=== PATIENT | male | born 1995 | race Caucasian/White ===

== ENCOUNTER 2017-08-10 16:16 | Emergency (ER) | payer OTHER ==
[2017-08-10] MEDS ORDERED: PROCHLORPERAZINE 10 MG/2 ML VIAL. IV (19:00)
[2017-08-10] MEDS ORDERED: fentaNYL PF VIAL 100 MCG/2 ML VIAL IV ×2 (19:00)
[2017-08-10] MEDS ORDERED: LIDOCAINE 1% PF 2 ML VIAL. ID (19:00)
[2017-08-10] MEDS ORDERED: ONDANSETRON PF 4 MG/2 ML VIAL. IV (19:00)
[2017-08-10] MEDS ORDERED: MORPHINE SULFATE 2 MG/ML DISP.SYRIN. IV (19:00)
[2017-08-10] MEDS ORDERED: HYDROmorphone 2 MG/ML VIAL IV (19:00)
[2017-08-10] MEDS ORDERED: IV RINGERS,LACTATED 1000ML 1,000 ML IV (19:00)
[2017-08-10] MEDS ORDERED: LIDOCAINE 1% PF 5 ML VIAL. (19:04)
[2017-08-10] MEDS ORDERED: PROPOFOL 20 ML IV (19:04)
[2017-08-10] MEDS ORDERED: fentaNYL PF VIAL 100 MCG/2 ML VIAL (19:04)
[2017-08-10] MEDS ORDERED: DESFLURANE 31 TO 60 MINUTES IH (19:38)
[2017-08-10] MEDS ORDERED: DEXAMETHASONE SOD PHOS 20 MG/5 ML VIAL. (19:38)
[2017-08-10] MEDS ORDERED: ONDANSETRON PF 4 MG/2 ML VIAL. (19:39)
[2017-08-10] MEDS: LIDOCAINE 2% JELLY 6ML IN APPLICATOR. (20:00)
[2017-08-10] MEDS ORDERED: CIPROFLOXACIN 400MG PREMIX 200 ML IV (20:00)
== END 2017-08-10 20:50 ==
LOC: ER 20:50 → SURHOP 18:45 → ER 20:50
DX: T19.0XXA Foreign body in urethra, initial encounter (principal); K21.9 Gastro-esophageal reflux disease without esophagitis; Z88.0 Allergy status to penicillin; Z88.1 Allergy status to other antibiotic agents; X58.XXXA Exposure to other specified factors, initial encounter; Y93.89 Activity, other specified; Y92.89 Other specified places as the place of occurrence of the external cause; Y99.8 Other external cause status
CPT/HCPCS: 52315; 99285; J1100; J2405; J2704; J3010; J7030

== ENCOUNTER 2017-10-10 10:17 | Emergency (ER) | payer OTHER ==
[2017-10-10 11:49] LABS: BILIRUBIN,URINE NEGATIVE (NEG); CLARITY,URINE CLEAR; COLOR,URINE YELLOW; GLUCOSE,URINE NEGATIVE (NEG); NITRITE,URINE NEGATIVE (NEG); PROTEIN,URINE 30 mg/dL (NEG-TRACE); UROBILINOGEN,URINE 0.2 mg/dL (0.2 mg/dL)
[2017-10-10 11:50] LABS: BACTERIA,URINE FEW /HPF (0-FEW)
[2017-10-10 11:59] LABS: ADD MAN DIFF? NO
[2017-10-10 12:10] LABS: ANION GAP 8 (6-14); BLOOD UREA NITROGEN 16 mg/dL (8-26); CALCIUM 9.4 mg/dL (8.5-10.1); CARBON DIOXIDE 30 mmol/L (21-32); CHLORIDE 107 mmol/L (98-107); CREATININE 0.8 mg/dL (0.7-1.3); GFR 118.8; GLUCOSE 104 mg/dL (70-99); POTASSIUM 3.9 mmol/L (3.5-5.1); SODIUM 145 mmol/L (136-145)
[2017-10-10 12:12] LABS: BASO % 0 % (0-3); EOS # 0.1 x10^3/uL (0.0-0.7); EOS % 2 % (0-3); HEMATOCRIT 43.8 % (39.0-53.0); HEMOGLOBIN 15.3 g/dL (13.0-17.5); LYMPH # 1.8 x10^3/uL (1.0-4.8); LYMPH % 27 % (24-48); MEAN CORPUSCULAR HEMOGLOBIN 31 pg (25-35); MEAN CORPUSCULAR HGB CONC 35 g/dL (31-37); MEAN CORPUSCULAR VOLUME 89 fL (79-100); MONO # 0.5 x10^3/uL (0.0-1.1); MONO % 7 % (0-9); NEUT # 4.4 x10^3uL (1.8-7.7); NEUT % 64 % (31-73); PLATELET COUNT 271 x10^3/uL (140-400); RED BLOOD COUNT 4.92 x10^6/uL (4.30-5.70); RED CELL DISTRIBUTION WIDTH 12.3 % (11.5-14.5); WHITE BLOOD COUNT 6.9 x10^3/uL (4.0-11.0)
[2017-10-10] MEDS ORDERED: IV RINGERS,LACTATED 1000ML 1,000 ML IV (13:42)
[2017-10-10] MEDS ORDERED: fentaNYL PF VIAL 100 MCG/2 ML VIAL IV ×2 (13:45)
[2017-10-10] MEDS ORDERED: HYDROmorphone 2 MG/ML VIAL IV (13:45)
[2017-10-10] MEDS ORDERED: MORPHINE SULFATE 4 MG/ML DISP.SYRIN. IV (13:45)
[2017-10-10] MEDS ORDERED: ONDANSETRON PF 4 MG/2 ML VIAL. IV ×2 (13:45)
[2017-10-10] MEDS ORDERED: PROCHLORPERAZINE 10 MG/2 ML VIAL. IV (13:45)
[2017-10-10] MEDS ORDERED: LIDOCAINE 1% PF 2 ML VIAL. ID (13:45)
[2017-10-10] MEDS ORDERED: PROPOFOL 20 ML IV (13:58)
[2017-10-10] MEDS ORDERED: fentaNYL PF VIAL 100 MCG/2 ML VIAL (13:59)
[2017-10-10] MEDS: CIPROFLOXACIN 200MG PREMIX 100 ML IV (14:10)
[2017-10-10] MEDS ORDERED: ONDANSETRON PF 4 MG/2 ML VIAL. (14:16)
[2017-10-10] MEDS ORDERED: SEVOFLURANE 16 TO 30 MINUTES. IH (14:16)
[2017-10-10] MEDS ORDERED: DEXAMETHASONE SOD PHOS 20 MG/5 ML VIAL. (14:16)
== END 2017-10-10 15:30 | disposition other institution (70) ==
LOC: ER 15:30 → SURHOP 13:47 → ER 15:30
DX: T19.0XXA Foreign body in urethra, initial encounter (principal); T19.4XXA Foreign body in penis, initial encounter; K21.9 Gastro-esophageal reflux disease without esophagitis; J45.909 Unspecified asthma, uncomplicated; Z88.0 Allergy status to penicillin; Z88.1 Allergy status to other antibiotic agents; X58.XXXA Exposure to other specified factors, initial encounter; Y93.89 Activity, other specified; Y99.8 Other external cause status; Y92.89 Other specified places as the place of occurrence of the external cause
CPT/HCPCS: 36415; 72170; 80048; 81001; 85025; 87086; 88300; 96365; 99285-25; J0744; J1100; J2405; J2704; J3010

== ENCOUNTER 2018-02-28 18:05 | Inpatient (IN) | payer OTHER ==
[~2018-02-28] VITALS: Ht 182.9 cm; Wt 133.8 kg
[~2018-02-28 18:05] MED LIST: ACET325T9 PO; CALC200T3 PO; GUAI600T47 PO; HYDR25CA PO; IBUP-1027 PO; OLAN20TA3 PO; SERT25TA PO; SODI104S NS; SULF1TAB24 PO; VENL75CA PO; [UNRECOGNIZED DRUG - CODE] TP
--- NOTE | 2018-02-28 22:19 | PHYS DOC ---
Past Medical History Past Medical History: Anxiety, Depression, Schizophrenia Past Surgical History: Other Additional Past Surgical Histo: PENILE SURGERY Alcohol Use: None Drug Use: None Adult General Chief Complaint Chief Complaint: FOREIGN BODY HPI HPI Patient is a 22 year old male, who is in police custody, who presents to the emergency department with complaints of having the handle of a plastic spoon stuck in his penis since approximately 5:45 this morning. Patient states he intentionally stuck the item into his penis, he reports a history of this behavior. Pt states that he is able to urinate without difficulty. He reports the development of pus draining from the tip of his penis over the last few hours in addition to hematuria and dysuria. Pt denies any increased urinary frequency, abdominal pain, nausea, vomiting, fever, or back pain. He denies trying to harm himself, states he enjoys sticking things into his penis. Currently he rates his pain as a 5 out of 10 on the pain scale. He reports significant psychiatric history but is unsure of his diagnoses. States that he takes lithium, Zyprexa, Adderall, and Depakote. Review of Systems Review of Systems Constitutional: Denies fever or chills [] GI: Denies abdominal pain, nausea, vomiting, or diarrhea [] : Reports dysuria and hematuria with pus from his urethral meatus since intentionally inserting the broken off handle of a plastic spoon into his urethra. Patient reports that the plastic spoon stuck inside of his urethra.[] Integument: Denies rash or skin lesions [] All other systems were reviewed and found to be within normal limits, except as documented in this note. Allergies Allergies Allergies Coded Allergies Type Severity Reaction Last Updated Verified Penicillins Allergy Intermediate HIVES 10/10/17 Yes amoxicillin Allergy Intermediate HIVES 10/10/17 Yes I S O L A T I O N *CONTACT* Allergy Unknown 10/10/17 Yes Physical Exam Physical Exam Constitutional: Well developed, well nourished, no acute distress, non-toxic appearance. [] HENT: Normocephalic, atraumatic, nose normal. [] Eyes: PERRLA, conjunctiva normal, no discharge. [] Lungs & Thorax: Respirations are even and unlabored, lungs CTA Abdomen: Bowel sounds normal, soft, no tenderness, no masses, no pulsatile masses. [] : Currently discharge at the urethral meatus, there is a palpable hard item located at the base of patient's penis, no testicular abnormalities Skin: Warm, dry, no erythema, no rash. [] Neurologic: Alert and oriented X 3, normal motor function, normal sensory function, no focal deficits noted. [] Psychologic: Affect normal, judgement normal, mood normal. [] Current Patient Data Vital Signs Vital Signs Date Time Temp Pulse Resp B/P (MAP) Pulse Ox O2 Delivery O2 Flow Rate FiO2 02/28/18 20:00 86 16 126/75 (92) 98 Room Air 02/28/18 19:13 98.6 98.6 EKG EKG [] Radiology/Procedures Radiology/Procedures [] Course & Med Decision Making Course & Med Decision Making Pertinent Labs and Imaging studies reviewed. (See chart for details) Patient Is a 22-year-old male who presents to the emergency room today with complaints of the handle of a plastic spoon being stuck inside of his urethra. VSS, patient is in police custody, a hard, stick-like foreign object is palpable at the base of patient's penis consistent with his reports of a handle from a plastic spoon being stuck in urethra. Patient waited approximately 350 ml of yellow urine into the urinal without any difficulty. The decision to admit this patient to the hospitalist with urology consult was made. Dr. Mohr agrees to admit this patient, will consult Dr. mcfadden. Orders written to admit this patient to the medical surgical floor with urology consult and also a hospice social worker consult for psychiatric evaluation was done. Dragon Disclaimer Dragon Disclaimer This electronic medical record was generated, in whole or in part, using a voice recognition dictation system. Departure Departure Impression: Primary Impression: Foreign body in urethra, initial encounter Disposition: ADMITTED INPATIENT Admitting Physician: Skylar Mohr Condition: STABLE Referrals: UNKNOWN PCP NAME (PCP) YANIV PRADO APRN Feb 28, 2018 22:19
[2018-02-28] MEDS ORDERED: DIVA250T PO (22:46)
[2018-02-28 23:00] VITALS: BP 124/80
[2018-02-28] MEDS ORDERED: HALOPERIDOL 5 MG TABLET. PO PRN (23:00)
[2018-02-28] MEDS ORDERED: MORPHINE SULFATE 2 MG/ML VIAL. IV PRN (23:00)
[2018-02-28] MEDS ORDERED: HALOPERIDOL LACTATE 5 MG/ML VIAL. IVP PRN (23:00)
[2018-02-28] MEDS ORDERED: HALOPERIDOL LACTATE 5 MG/ML VIAL. IM PRN (23:00)
[2018-02-28] MEDS: IV NORMAL SALINE 1000ML BAG 1,000 ML IV SCH (23:00)
[2018-03-01] VITALS (9 sets, daily range): BP systolic 103–145; BP diastolic 54–84
--- NOTE | 2018-03-01 08:49 | PDOC2 ---
CORAAMAN Audrey WAGE ANALYST 03/01/18 0849: UROLOGY CONSULT Date of Consult Date of Consult DATE: 03/01/18 TIME: 08:41 Reason for Consult Reason for Consult: Foreign body in urethra Identification/Chief Complaint Chief Complaint Foreign body in urethra Source Source: Chart review, Patient History of Present Illness Reason for Visit: This 22 year old Autistic male is known to us, having presented before numerous times for foreign body insertion in urethra. This time he disassembled a plastic spoon until it was a long string of plastic and inserted this into his urethra at 0545 yesterday. Since then he has had dysuria and pus coming out of his urethra. He is not sure if he is having fevers. When asked why he responded "I was told to do this." When asked who told him to do this he responded "I can't say." He also responded that he is in a secluded cell 23 hours a day and this is part of why he did this. He has not seen social work yet. Past Medical History Cardiovascular: No pertinent hx Pulmonary: No pertinent hx Psych: Bipolar, Depression, Other Past Surgical History Past Surgical History: Cystoscopy, Other (Foreign body removal from urethra multiple times) Family History Family History: No Significant Social History Social History: Other Current Problem List Problems: (1) Foreign body in penis (2) Foreign body in urethra, initial encounter Current Medications Current Medications Current Medications Haloperidol (Haldol) 5 mg PRN Q6HRS PRN PO AGITATION IF TAKING PO; Start at 23:00 Haloperidol Lactate (Haldol Inj) 5 mg PRN Q6HRS PRN IM AGITATION; Start at 23:00 Haloperidol Lactate (Haldol Inj) 5 mg PRN Q6HRS PRN IVP ANXIETY / AGITATION; Start 02/28/18 at 23:00 Lorazepam (Ativan) 2 mg PRN Q4HRS PRN IV ANXIETY / AGITATION; Start 02/28/18 at 23:00 Morphine Sulfate (Morphine Sulfate) 2 mg PRN Q2HR PRN IV SEVERE PAIN; Start at 23:00 Sodium Chloride 1,000 ml @ 75 mls/hr [id number] IV Last administered on at 23:00; Start 02/28/18 at 23:00 Allergies Allergies: Coded Allergies: Penicillins (Verified Allergy, Intermediate, HIVES, 10/10/17) amoxicillin (Verified Allergy, Intermediate, HIVES, 10/10/17) I S O L A T I O N *CONTACT* (Verified Allergy, Unknown, 10/10/17) mrsa ROS Review Of Systems: CONSTITUTIONAL: No fever or chills EYES: No recent changes SKIN: No rash or itching CARDIOVASCULAR: No chest pain, syncope, palpitations, or edema RESPIRATORY: No SOB or cough GASTROINTESTINAL: No nausea, vomiting or abdominal pain NEUROLOGICAL: No headaches or weakness ENDOCRINE: No cold or heat intolerance GENITOURINARY: + dysuria, foreign body in urethra MUSCULOSKELETAL: No back pain or joint pain LYMPHATICS: No enlarged lymph nodes PSYCHIATRIC: No anxiety or depression Physical Exam Physical Exam: General: Pleasant, no acute distress, well groomed Eyes: conjunctiva anicteric, eyes full range of motion ENT: moist oral mucosa, normal dentition Neck: Trachea midline, no masses Respiratory: unlabored breathing, not using accessory muscles. Pelvic: Phallus circumcised, small amount of pus present on meatus, but foreign body is not visible on exam. Foreign body palpable about 1/2 down shaft of penis. Tender on exam Psych: Alert and oriented x 3. Suspicious affect. Vitals VITALS Vital Signs Date Time Temp Pulse Resp B/P (MAP) Pulse Ox O2 Delivery O2 Flow Rate FiO2 03/01/18 07:00 97.9 61 18 103/54 (70) 96 Room Air 97.9 Assessment/Plan Assessment/Plan Foreign body in penis-We will take patient to OR for foreign body removal and cysto. Consents have been entered. Cipro at 1200 today for pre-opp cysto/foreign body removal with Dr. Galindo of [facility] [place] Pt to remain NPO until after procedure. [facility], in light of repeated presentation for urethral foreign body/psych issues. MANOLO GALINDO MD 03/01/18 1426: UROLOGY CONSULT Assessment/Plan Assessment/Plan Agree with assessment and plan. Patient seen and examined. Proceed with cystoscopy, foreign body removal. All questions answered, consent signed. AMAN SHEPHERD APRN Mar 01, 2018 08:49 MANOLO GALINDO MD Mar 01, 2018 14:26
[2018-03-01 09:17] LABS: CALCIUM 8.7 mg/dL (8.5-10.1); CREATININE 0.8 mg/dL (0.7-1.3); GFR 118.8; POTASSIUM 3.8 mmol/L (3.5-5.1)
[2018-03-01 09:20] LABS: BASO % 0 % (0-3); EOS # 0.1 x10^3/uL (0.0-0.7); EOS % 2 % (0-3); HEMATOCRIT 41.4 % (39.0-53.0); HEMOGLOBIN 14.5 g/dL (13.0-17.5); LYMPH # 2.3 x10^3/uL (1.0-4.8); LYMPH % 30 % (24-48); MEAN CORPUSCULAR HEMOGLOBIN 32 pg (25-35); MEAN CORPUSCULAR HGB CONC 35 g/dL (31-37); MEAN CORPUSCULAR VOLUME 91 fL (79-100); MONO # 0.8 x10^3/uL (0.0-1.1); MONO % 11 % (0-9); NEUT # 4.3 x10^3uL (1.8-7.7); NEUT % 57 % (31-73); PLATELET COUNT 156 x10^3/uL (140-400); RED BLOOD COUNT 4.56 x10^6/uL (4.30-5.70); RED CELL DISTRIBUTION WIDTH 13.1 % (11.5-14.5); WHITE BLOOD COUNT 7.5 x10^3/uL (4.0-11.0)
[2018-03-01 09:53] LABS: PROTHROMBIN TIME PATIENT 13.3 SEC (11.7-14.0)
[2018-03-01] MEDS ORDERED: IV RINGERS,LACTATED 1000ML 1,000 ML IV SCH (11:24)
--- NOTE | 2018-03-01 11:26 | PDOC1 ---
History and Physical Date of Admission Date of Admission DATE: 03/01/18 TIME: 11:20 Identification/Chief Complaint Chief Complaint Inserted a plastic spoon in his penile shaft Source Source: Caregiver, Chart review, Patient History of Present Illness History of Present Illness 22-year-old male, incarcerated, has had suicide attempts in the past including slitting his left wrist, known history of psych disorder, possibly schizophrenia. He said he heard voices telling him to insert a plastic spoon in his penis. So he broke the spoon part of it and inserted the handle all the way inside his penis and could not get it out. He can still urinate. He has significant discomfort in that area. Patient admitted for it and is planned for retrieval by urology later this p.m. Otherwise no basic labs ordered. He is smiling. He claims in residential they cannot give him his lithium. We shall also ask our life crisis or mental health counselor to see this patient. He claims he has attempted putting other objects in the past in his penis because voices instruct him to do this. It includes rubber etc. needing some retrieval also by urology? Has no kids, it seems that his family is aware of his psych issues and past suicide attempts Past Medical History Cardiovascular: No pertinent hx Pulmonary: No pertinent hx Psych: Bipolar, Depression, Other Past Surgical History Past Surgical History: Cystoscopy, Other (Foreign body removal from urethra multiple times) Family History Family History: No Significant Family History: Other Social History Smoke: No ALCOHOL: none Drugs: None Current Problem List Problem List Problems Medical Problems: (1) Foreign body in urethra, initial encounter Status: Acute Current Medications Current Medications Current Medications Morphine Sulfate (Morphine Sulfate) 2 mg PRN Q2HR PRN IV SEVERE PAIN; Start at 23:00 Lorazepam (Ativan) 2 mg PRN Q4HRS PRN IV ANXIETY / AGITATION; Start 02/28/18 at 23:00 Haloperidol (Haldol) 5 mg PRN Q6HRS PRN PO AGITATION IF TAKING PO; Start at 23:00 Haloperidol Lactate (Haldol Inj) 5 mg PRN Q6HRS PRN IM AGITATION; Start at 23:00 Haloperidol Lactate (Haldol Inj) 5 mg PRN Q6HRS PRN IVP ANXIETY / AGITATION; Start 02/28/18 at 23:00 Sodium Chloride 1,000 ml @ 75 mls/hr [id number] IV Last administered on at 23:00; Start 02/28/18 at 23:00 Ciprofloxacin/ Dextrose 200 ml @ 200 mls/hr 1X ONCE IV ; Start 03/01/18 at 12: 00; Stop 03/01/18 at 12:59 Active Scripts Active Reported Depakote Er (Divalproex Sodium) 250 Mg Tab.er.24h 250 Mg PO DAILY Bactrim Ds Tablet (Sulfamethoxazole/Trimethoprim) 1 Each Tablet 1 Each PO BID Zoloft (Sertraline Hcl) 25 Mg Tablet 1 Tab PO HS Tylenol (Acetaminophen) 325 Mg Tablet 2 Tab PO Q6HRS PRN Ibuprofen 400 Mg Tablet 400 Mg PO PRN Q6HRS PRN Effexor Xr (Venlafaxine Hcl) 75 Mg Cap.er.24h 225 Mg PO DAILY Zyprexa (Olanzapine) 20 Mg Tablet 20 Mg PO HS Vistaril (Hydroxyzine Pamoate) 25 Mg Capsule 1 Cap PO DAILY08 Anti-Dandruff ([place] Tar) 251 Ml Shampoo 251 Ml TP TWICE WEEKLY Anti-Dandruff ([place] Tar) 251 Ml Shampoo 251 Ml TP Allergies Allergies: Coded Allergies: Penicillins (Verified Allergy, Intermediate, HIVES, 10/10/17) amoxicillin (Verified Allergy, Intermediate, HIVES, 10/10/17) I S O L A T I O N *CONTACT* (Verified Allergy, Unknown, 10/10/17) mrsa ROS Review of System As per history of present illness, the rest of 14 point ROS negative Physical Exam General: Alert, Oriented X3, Cooperative, No acute distress HEENT: Atraumatic, PERRLA, EOMI Lungs: Clear to auscultation, Normal air movement Heart: S1S2, RRR, no thrills, no rubs, no gallops, no murmurs, no jug vein distention Cardiovascular: S1, S2 Abdomen: Soft Male Genitals Exam: other (palpable handle of the spoon in his penile area, no foreign object extravasating from his urethral meatus appreciable) Extremities: No clubbing, No cyanosis, No edema, Normal pulses, No tenderness/ swelling Skin: No rashes, No breakdown, No significant lesion Neuro: Normal gait, Normal speech, Strength at 5/5 X4 ext, Normal tone, Sensation intact, Cranial nerves 3-12 NL, Reflexes 2+ Psych/Mental Status: Mental status NL Vitals Vitals Vital Signs Date Time Temp Pulse Resp B/P (MAP) Pulse Ox O2 Delivery O2 Flow Rate FiO2 03/01/18 07:45 Room Air 03/01/18 07:00 97.9 61 18 103/54 (70) 96 97.9 Labs Labs Laboratory Tests Test 03/01/18 08:55 White Blood Count 7.5 x10^3/uL (4.0-11.0) Red Blood Count 4.56 x10^6/uL (4.30-5.70) Hemoglobin 14.5 g/dL (13.0-17.5) Hematocrit 41.4 % (39.0-53.0) Mean Corpuscular Volume 91 fL (79-100) Mean Corpuscular Hemoglobin 32 pg (25-35) Mean Corpuscular Hemoglobin Concent 35 g/dL (31-37) Red Cell Distribution Width 13.1 % (11.5-14.5) Platelet Count 156 x10^3/uL (140-400) Neutrophils (%) (Auto) 57 % (31-73) Lymphocytes (%) (Auto) 30 % (24-48) Monocytes (%) (Auto) 11 % (0-9) Eosinophils (%) (Auto) 2 % (0-3) Basophils (%) (Auto) 0 % (0-3) Neutrophils # (Auto) 4.3 x10^3uL (1.8-7.7) Lymphocytes # (Auto) 2.3 x10^3/uL (1.0-4.8) Monocytes # (Auto) 0.8 x10^3/uL (0.0-1.1) Eosinophils # (Auto) 0.1 x10^3/uL (0.0-0.7) Basophils # (Auto) 0.0 x10^3/uL (0.0-0.2) Prothrombin Time 13.3 SEC (11.7-14.0) Prothromb Time International Ratio 1.1 (0.8-1.1) Sodium Level 142 mmol/L (136-145) Potassium Level 3.8 mmol/L (3.5-5.1) Chloride Level 109 mmol/L (98-107) Carbon Dioxide Level 28 mmol/L (21-32) Anion Gap 5 (6-14) Blood Urea Nitrogen 8 mg/dL (8-26) Creatinine 0.8 mg/dL (0.7-1.3) Estimated GFR (Cockcroft-Gault) 118.8 Glucose Level 99 mg/dL (70-99) Calcium Level 8.7 mg/dL (8.5-10.1) Laboratory Tests Test 03/01/18 08:55 White Blood Count 7.5 x10^3/uL (4.0-11.0) Red Blood Count 4.56 x10^6/uL (4.30-5.70) Hemoglobin 14.5 g/dL (13.0-17.5) Hematocrit 41.4 % (39.0-53.0) Mean Corpuscular Volume 91 fL (79-100) Mean Corpuscular Hemoglobin 32 pg (25-35) Mean Corpuscular Hemoglobin Concent 35 g/dL (31-37) Red Cell Distribution Width 13.1 % (11.5-14.5) Platelet Count 156 x10^3/uL (140-400) Neutrophils (%) (Auto) 57 % (31-73) Lymphocytes (%) (Auto) 30 % (24-48) Monocytes (%) (Auto) 11 % (0-9) Eosinophils (%) (Auto) 2 % (0-3) Basophils (%) (Auto) 0 % (0-3) Neutrophils # (Auto) 4.3 x10^3uL (1.8-7.7) Lymphocytes # (Auto) 2.3 x10^3/uL (1.0-4.8) Monocytes # (Auto) 0.8 x10^3/uL (0.0-1.1) Eosinophils # (Auto) 0.1 x10^3/uL (0.0-0.7) Basophils # (Auto) 0.0 x10^3/uL (0.0-0.2) Prothrombin Time 13.3 SEC (11.7-14.0) Prothromb Time International Ratio 1.1 (0.8-1.1) Sodium Level 142 mmol/L (136-145) Potassium Level 3.8 mmol/L (3.5-5.1) Chloride Level 109 mmol/L (98-107) Carbon Dioxide Level 28 mmol/L (21-32) Anion Gap 5 (6-14) Blood Urea Nitrogen 8 mg/dL (8-26) Creatinine 0.8 mg/dL (0.7-1.3) Estimated GFR (Cockcroft-Gault) 118.8 Glucose Level 99 mg/dL (70-99) Calcium Level 8.7 mg/dL (8.5-10.1) VTE Prophylaxis Ordered VTE Prophylaxis Devices: Yes VTE Pharmacological Prophylaxi: Yes Assessment/Plan Assessment/Plan Foreign body in the penis, intentional Psych history, history of suicide attempt in the past Likely schizophrenia Incarcerated Plan: Has been nothing by mouth for urologic retrieval of the foreign body Pat to assess BAsic labs pre op PRIYANKA CORONEL MD Mar 01, 2018 11:26
[2018-03-01] MEDS ORDERED: LIDOCAINE 1% PF 2 ML VIAL. ID PRN (11:30)
[2018-03-01] MEDS ORDERED: PROCHLORPERAZINE 10 MG/2 ML VIAL. IV PRN (11:30)
[2018-03-01] MEDS ORDERED: fentaNYL PF VIAL 100 MCG/2 ML VIAL IV PRN ×2 (11:30)
[2018-03-01] MEDS ORDERED: MORPHINE SULFATE 2 MG/ML VIAL. IV PRN (11:30)
[2018-03-01] MEDS ORDERED: HYDROmorphone 2 MG/ML VIAL IV PRN (11:30)
[2018-03-01] MEDS ORDERED: CIPROFLOXACIN 400MG PREMIX 200 ML IV ONE (12:00)
[2018-03-01] MEDS: IV NORMAL SALINE 1000ML BAG 1,000 ML IV SCH (12:20)
[2018-03-01] MEDS ORDERED: LIDOCAINE 2% PF Vial for OR 5 ML VIAL. ONE (13:11)
[2018-03-01] MEDS ORDERED: PROPOFOL 20 ML IV ONE (13:11)
[2018-03-01] MEDS ORDERED: MIDAZOLAM HCL/PF 2 MG/2 ML VIAL. ONE (13:11)
[2018-03-01] MEDS ORDERED: fentaNYL PF VIAL 100 MCG/2 ML VIAL ONE (13:12)
--- NOTE | 2018-03-01 15:08 | PDOC4 ---
OPERATIVE NOTE Date: Date: Jul 30, 2017 Pre-Op Diagnosis: urethral foreign body Post-Op Diagnosis: same Procedure Performed: cystoscopy, removal of urethra foreign body Surgeon: Manolo Galindo MD Anesthesia Type: general Blood Loss: 0 Specimans Obtained: none Findings: plastic spoon handle and small cylindrical plastic in urethra minor urethra trauma Complications: none Operative Note: see dictation. ok for discharge from urology perspective MANOLO GALINDO MD Mar 01, 2018 15:08
--- NOTE | 2018-03-01 15:33 | OP ---
DATE OF SURGERY: 03/01/2018 SURGEON: Manolo Galindo MD. WHE[employer] MILLER: None. PREOPERATIVE DIAGNOSIS: Urethral foreign body. POSTOPERATIVE DIAGNOSIS: Urethral foreign body. PROCEDURE PERFORMED: Cystoscopy with removal of foreign body. ANESTHESIA TYPE: General. INDICATIONS: This is a 22-year-old male who placed a plastic candle of a spoon into his urethra. He has had multiple trips to this hospital with similar urethral foreign bodies. After discussion of risks, benefits and alternatives, he agreed to the above procedure. Informed consent was obtained. DESCRIPTION OF PROCEDURE: The patient taken to the operating room. General anesthesia was induced. He was placed in dorsal lithotomy position, sterilely prepped and draped. A timeout was performed. A rigid cystoscope was advanced into the urethra and a plastic fork could be seen in the penile urethra. This was able to be milked out slowly. There was also a second smaller clear piece of plastic, which was removed. The urethra was then inspected again with the scope, there were some minor tears in the penile urethra, but no full thickness lacerations and no urethral bleeding noted. There was a mild stricture more proximally, but the 21-G[place] scope was able to advance easily beyond that. The prostate and bladder appeared unremarkable and no additional foreign bodies were noted. The bladder was emptied. The scope was then removed. The patient was awakened and taken to the recovery room in stable condition. ESTIMATED BLOOD LOSS: None. COMPLICATIONS: None. SPECIMENS: None. MANOLO GALINDO MD DR: SONIYA/nts JOB#: [id number] / [id number]
[2018-03-02] MEDS: IV NORMAL SALINE 1000ML BAG 1,000 ML IV SCH (01:40)
[2018-03-02 03:00] VITALS: BP 148/84
[2018-03-02 07:00] VITALS: BP 118/61
--- NOTE | 2018-03-02 08:59 | PDOC ---
AMAN SHEPHERD HAMMER DRIVER 03/02/18 0859: SUBJECTIVE Subjective Pt was "up all night drinking coffee" per bedside guards. Has some burning with urination but it is "not bothering him." Patient does not want psych/ social work evaluation because he says once he gets out of senior living in June he "will not do this anymore." OBJECTIVE Objective Physical Exam: General appearance: Alert and Oriented Head: Normocephalic, without obvious abnormality Eyes: conjunctivae/corneas clear. PERRL, EOM's intact. Fundi benign Lungs: non labored breathing Abdomen: soft, non-tender. Bowel sounds normal. No masses, no organomegaly Pelvic: phallus WNL, no drainage or signs or symptoms of infection noted. Vital Signs Vital Signs Date Time Temp Pulse Resp B/P (MAP) Pulse Ox O2 Delivery O2 Flow Rate FiO2 03/02/18 07:00 96.4 87 16 118/61 (80) 95 Room Air 96.4 03/02/18 03:00 98.8 79 18 148/84 (105) 97 Room Air 98.8 03/01/18 23:00 99.5 89 18 145/84 (104) 97 Room Air 99.5 03/01/18 19:00 98.6 89 18 141/84 (103) 94 Room Air 98.6 03/01/18 17:50 89 137/77 (97) 89 03/01/18 16:50 75 132/77 (95) 87 03/01/18 16:20 69 125/72 (89) 89 03/01/18 15:51 55 128/73 (91) 91 03/01/18 15:36 98.4 67 16 131/78 97 Room Air 98.4 03/01/18 15:23 98.4 73 16 121/79 96 Room Air 98.4 03/01/18 15:08 74 14 106/62 99 Simple Mask 6 03/01/18 14:53 97.9 64 12 101/55 99 Simple Mask 6 97.9 03/01/18 14:53 Mask 6 03/01/18 12:49 98.1 72 15 134/76 96 Room Air 98.1 03/01/18 11:00 98.1 66 18 120/66 (84) 93 Room Air 98.1 I & O Intake and Output 03/02/18 07:00 Intake Total 3240 ml Output Total 4780 ml Balance -1540 ml Intake Oral 1440 ml IV Total 1800 ml Output Urine Total 4780 ml # Voids 5 PHYSICAL EXAM Physical Exam Physical Exam: General appearance: Alert and Oriented Head: Normocephalic, without obvious abnormality Eyes: conjunctivae/corneas clear. PERRL, EOM's intact. Fundi benign Lungs: non labored breathing Abdomen: soft, non-tender. Bowel sounds normal. No masses, no organomegaly Pelvic: phallus WNL, no drainage or signs or symptoms of infection noted. ASSESSMENT/PLAN Assessment/Plan Pt is POD # 1 foreign body removal from urethra per Dr. Galindo. Had slight fever yesterday of 99.5. Pt refused CBC Agree with psych/social work consult for self destructive behavior. Potential discharge later today after psych eval. No follow up required with Urology Problems: (1) Foreign body in penis MANOLO GALINDO MD 03/03/18 1340: ASSESSMENT/PLAN Assessment/Plan Agree with assessment and plan. AMAN SHEPHERD APRN Mar 02, 2018 08:59 MANOLO GALINDO MD Mar 03, 2018 13:40
[2018-03-02 11:00] VITALS: BP 131/71
--- NOTE | 2018-03-02 12:53 | PDOC ---
PROGRESS NOTES Chief Complaint Chief Complaint foreign object in penile shaft Bipolar Depression Cystoscopy (Foreign body removal from urethra multiple times) History of Present Illness History of Present Illness pt was seen and examined officers at bedside pt refuses to speak to medical staff pt states insertion of object into penile shaft is "sexually gratifying" Vitals Vitals Vital Signs Date Time Temp Pulse Resp B/P (MAP) Pulse Ox O2 Delivery O2 Flow Rate FiO2 03/02/18 11:00 97.9 73 16 131/71 (91) 96 Room Air 97.9 03/01/18 15:08 6 Physical Exam General: Alert, Oriented X3, Cooperative, No acute distress Heart: Regular rate, Normal S1, Normal S2, No murmurs Lungs: Clear Abdomen: Soft Extremities: No clubbing, No cyanosis, No edema, Normal pulses, No tenderness/ swelling Skin: No rashes, No breakdown, No significant lesion Review of Systems Review of Systems co penile pain no co SMITH Assessment and Plan Assessmemt and Plan Assessment: Foreign body inpenile shaft Bipolar Depression Previous cystoscopy Plan: counciled on the dangers of inserting objects into penile shaft, infectious vs mechanical pain management probable DC to custodial Comment Review of Relevant I have reviewed the following items salvador (where applicable) has been applied. Labs Laboratory Tests Test 03/01/18 00:00 03/01/18 08:55 Nasal Screen MRSA (PCR) Positive (Negative) White Blood Count 7.5 x10^3/uL (4.0-11.0) Red Blood Count 4.56 x10^6/uL (4.30-5.70) Hemoglobin 14.5 g/dL (13.0-17.5) Hematocrit 41.4 % (39.0-53.0) Mean Corpuscular Volume 91 fL (79-100) Mean Corpuscular Hemoglobin 32 pg (25-35) Mean Corpuscular Hemoglobin Concent 35 g/dL (31-37) Red Cell Distribution Width 13.1 % (11.5-14.5) Platelet Count 156 x10^3/uL (140-400) Neutrophils (%) (Auto) 57 % (31-73) Lymphocytes (%) (Auto) 30 % (24-48) Monocytes (%) (Auto) 11 % (0-9) Eosinophils (%) (Auto) 2 % (0-3) Basophils (%) (Auto) 0 % (0-3) Neutrophils # (Auto) 4.3 x10^3uL (1.8-7.7) Lymphocytes # (Auto) 2.3 x10^3/uL (1.0-4.8) Monocytes # (Auto) 0.8 x10^3/uL (0.0-1.1) Eosinophils # (Auto) 0.1 x10^3/uL (0.0-0.7) Basophils # (Auto) 0.0 x10^3/uL (0.0-0.2) Prothrombin Time 13.3 SEC (11.7-14.0) Prothromb Time International Ratio 1.1 (0.8-1.1) Sodium Level 142 mmol/L (136-145) Potassium Level 3.8 mmol/L (3.5-5.1) Chloride Level 109 mmol/L (98-107) Carbon Dioxide Level 28 mmol/L (21-32) Anion Gap 5 (6-14) Blood Urea Nitrogen 8 mg/dL (8-26) Creatinine 0.8 mg/dL (0.7-1.3) Estimated GFR (Cockcroft-Gault) 118.8 Glucose Level 99 mg/dL (70-99) Calcium Level 8.7 mg/dL (8.5-10.1) Medications Current Medications Morphine Sulfate (Morphine Sulfate) 2 mg PRN Q2HR PRN IV SEVERE PAIN; Start at 23:00 Lorazepam (Ativan) 2 mg PRN Q4HRS PRN IV ANXIETY; Start 02/28/18 at 23:00 Haloperidol (Haldol) 5 mg PRN Q6HRS PRN PO AGITATION IF TAKING PO; Start at 23:00 Haloperidol Lactate (Haldol Inj) 5 mg PRN Q6HRS PRN IM AGITATION; Start at 23:00 Haloperidol Lactate (Haldol Inj) 5 mg PRN Q6HRS PRN IVP AGITATION; Start at 23:00 Sodium Chloride 1,000 ml @ 75 mls/hr [id number] IV Last administered on at 12:20; Start 02/28/18 at 23:00 Ciprofloxacin/ Dextrose 200 ml @ 200 mls/hr 1X ONCE IV Last administered on at 11:40; Start 03/01/18 at 12:00; Stop 03/01/18 at 12:59; Status DC Fentanyl Citrate (Fentanyl 2ml Vial) 25 mcg PRN Q5MIN PRN IV MILD PAIN; Start 03/01/18 at 11:30; Stop 03/01/18 at 18:00; Status DC Fentanyl Citrate (Fentanyl 2ml Vial) 50 mcg PRN Q5MIN PRN IV MODERATE TO SEVERE PAIN; Start 03/01/18 at 11:30; Stop 03/01/18 at 18:00; Status DC Morphine Sulfate (Morphine Sulfate) 1 mg PRN Q10MIN PRN IV SEVERE PAIN; Start 03/01/18 at 11:30; Stop 03/01/18 at 18:00; Status DC Ringer's Solution 1,000 ml @ 30 mls/hr Q24H IV Last administered on 03/01/18at 14:10; Start 03/01/18 at 11:24; Stop 03/01/18 at 23:23; Status DC Lidocaine HCl (Xylocaine-Mpf 1% 2ml Vial) 2 ml PRN 1X PRN ID PRIOR TO IV START ; Start 03/01/18 at 11:30; Stop 03/01/18 at 18:00; Status DC Hydromorphone HCl (Dilaudid) 0.5 mg PRN Q10MIN PRN IV SEV PAIN, Second choice; Start 03/01/18 at 11:30; Stop 03/01/18 at 18:00; Status DC Prochlorperazine Edisylate (Compazine) 5 mg PACU PRN PRN IV NAUSEA, MRX1; Start 03/01/18 at 11:30; Stop 03/01/18 at 18:00; Status DC Propofol 20 ml @ As Directed STK-MED ONCE IV ; Start 03/01/18 at 13:11; Stop at 13:13; Status DC Lidocaine HCl (Lidocaine Pf 2% Vial) 5 ml STK-MED ONCE .ROUTE ; Start 03/01/18 at 13:11; Stop 03/01/18 at 13:13; Status DC Midazolam HCl (Versed) 2 mg STK-MED ONCE .ROUTE ; Start 03/01/18 at 13:11; Stop 03/01/18 at 13:13; Status DC Fentanyl Citrate (Fentanyl 2ml Vial) 100 mcg STK-MED ONCE .ROUTE ; Start at 13:12; Stop 03/01/18 at 13:13; Status DC Active Scripts Active Reported Depakote Er (Divalproex Sodium) 250 Mg Tab.er.24h 250 Mg PO DAILY Bactrim Ds Tablet (Sulfamethoxazole/Trimethoprim) 1 Each Tablet 1 Each PO BID Zoloft (Sertraline Hcl) 25 Mg Tablet 1 Tab PO HS Tylenol (Acetaminophen) 325 Mg Tablet 2 Tab PO Q6HRS PRN Ibuprofen 400 Mg Tablet 400 Mg PO PRN Q6HRS PRN Effexor Xr (Venlafaxine Hcl) 75 Mg Cap.er.24h 225 Mg PO DAILY Zyprexa (Olanzapine) 20 Mg Tablet 20 Mg PO HS Vistaril (Hydroxyzine Pamoate) 25 Mg Capsule 1 Cap PO DAILY08 Anti-Dandruff ([place] Tar) 251 Ml Shampoo 251 Ml TP TWICE WEEKLY Anti-Dandruff ([place] Tar) 251 Ml Shampoo 251 Ml TP Vitals/I & O Vital Sign - Last 24 Hours 03/01/18 03/01/18 03/01/18 03/01/18 12:49 14:53 14:53 15:08 Temp 98.1 97.9 98.1 97.9 Pulse 72 64 74 Resp 15 12 14 B/P (MAP) 134/76 101/55 106/62 Pulse Ox 96 99 99 O2 Delivery Room Air Mask Simple Mask Simple Mask O2 Flow Rate 6 6 6 03/01/18 03/01/18 03/01/18 03/01/18 15:23 15:36 15:51 16:20 Temp 98.4 98.4 98.4 98.4 Pulse 73 67 55 69 Resp 16 16 B/P (MAP) 121/79 131/78 128/73 (91) 125/72 (89) Pulse Ox 96 97 91 89 O2 Delivery Room Air Room Air 03/01/18 03/01/18 03/01/18 03/01/18 16:50 17:50 19:00 23:00 Temp 98.6 99.5 98.6 99.5 Pulse 75 89 89 89 Resp 18 18 B/P (MAP) 132/77 (95) 137/77 (97) 141/84 (103) 145/84 (104) Pulse Ox 87 89 94 97 O2 Delivery Room Air Room Air 03/02/18 03/02/18 03/02/18 03/02/18 03:00 07:00 08:00 11:00 Temp 98.8 96.4 97.9 98.8 96.4 97.9 Pulse 79 87 73 Resp 18 16 16 B/P (MAP) 148/84 (105) 118/61 (80) 131/71 (91) Pulse Ox 97 95 96 O2 Delivery Room Air Room Air Room Air Room Air Intake and Output 03/01/18 03/01/18 03/02/18 15:00 23:00 07:00 Intake Total 1700 ml 340 ml 1200 ml Output Total 950 ml 1230 ml 2600 ml Balance 750 ml -890 ml -1400 ml NARGIS OLSON III DO Mar 02, 2018 12:53
[2018-03-02] MEDS ORDERED: ACETAMINOPHEN 325 MG TABLET. PO PRN (13:30)
--- NOTE | 2018-03-06 11:24 | DS ---
DATE OF DISCHARGE: 03/02/2018 ADMISSION DIAGNOSIS: Foreign body in the urethra. DISCHARGE DIAGNOSIS: Resolving what is status post extraction of foreign body from the urethra. HOSPITAL COURSE: The patient is a pleasant 22-year-old male who resides at [facility]. He puts various objects in his urethra on a weekly basis. We have admitted him several times. The last time I had him here, he had a cup in there. Now, he put a screw in there. We admitted the patient. We consulted Urology. I believe the foreign body was removed successfully. The patient is doing well. DISPOSITION: We plan to [facility] back to [facility] ACTIVITY: As tolerated. DIET: Low sodium. MEDICATIONS: Please see the MRAD. TOTAL TIME ON DISCHARGE: 38 minutes. NARGIS OLSON DO DR: CARMELINA/mariusz JOB#: [id number] / [id number]
== END 2018-03-02 14:54 | DRG 699 ==
LOC: EEVIPCON 18:05 → ER 18:05 → 4 NORTH 20:40
PROVIDERS: ADMIT Internal Medicine; ATTEND Internal Medicine
PROC: 0TCD8ZZ Extirpation of Matter from Urethra, Via Natural or Artificial Opening Endoscopic (ICD-10-PCS; principal; 2018-03-01 13:00)
DX: T19.0XXA Foreign body in urethra, initial encounter (principal); F84.0 Autistic disorder; F20.9 Schizophrenia, unspecified; F41.9 Anxiety disorder, unspecified; X58.XXXA Exposure to other specified factors, initial encounter; F31.9 Bipolar disorder, unspecified; Z91.5 Personal history of self-harm; Z88.1 Allergy status to other antibiotic agents; Z88.0 Allergy status to penicillin; Y93.89 Activity, other specified; Y92.89 Other specified places as the place of occurrence of the external cause; Y99.8 Other external cause status
CPT/HCPCS: 36415; 80048; 85025; 85610; 87641; 96365; 96366; A7015; J0744; J2001; J2250; J2704; J3010; J7030; J7120; 99285-25

== ENCOUNTER 2018-03-28 09:50 | Inpatient (IN) | payer OTHER ==
[~2018-03-28] VITALS: Ht 180.3 cm; Wt 129.7 kg
[~2018-03-28 09:50] MED LIST changes: +DIVA250T PO
[2018-03-28 10:24] LABS: BILIRUBIN,URINE NEGATIVE (NEG); CLARITY,URINE CLEAR; COLOR,URINE YELLOW; NITRITE,URINE NEGATIVE (NEG); PROTEIN,URINE NEGATIVE (NEG-TRACE); UROBILINOGEN,URINE 0.2 mg/dL (0.2 mg/dL)
--- NOTE | 2018-03-28 10:32 | RAD ---
History: Possible glass at the base of the penis. Comparison: None. Findings: AP view of the pelvis. Upper pelvis has been excluded. The visualized osseous structures are without evidence of acute osseous traumatic injury. There is a mildly radiodense foreign body measuring about 1.7 cm projecting at the expected location the penoscrotal junction, compatible with foreign body. Impression: 1.7 cm foreign body projecting at the penoscrotal junction, compatible with provided history of glass. Electronically signed by: David Warren MD (03/28/2018 10:28 AM) [place] [id number]
[2018-03-28 10:36] LABS: BACTERIA,URINE MODERATE /HPF (0-FEW); RBC,URINE OCC /HPF (0-2); SQUAMOUS EPITHELIAL CELL,UR OCC /LPF; WBC,URINE 20-40 /HPF (0-4)
--- NOTE | 2018-03-28 11:02 | PHYS DOC ---
Past Medical History Past Medical History: Anxiety, Depression, Schizophrenia, Other Additional Past Medical Histor: foreign bodies in penis Past Surgical History: Other Additional Past Surgical Histo: PENILE SURGERY Alcohol Use: None Drug Use: None Adult General Chief Complaint Chief Complaint: FOREIGN BODY HPI HPI Patient is a 22 year old [f__sex] who presents with [] Review of Systems Review of Systems Constitutional: Denies fever or chills [] Eyes: Denies change in visual acuity, redness, or eye pain [] HENT: Denies nasal congestion or sore throat [] Respiratory: Denies cough or shortness of breath [] Cardiovascular: No additional information not addressed in HPI [] GI: Denies abdominal pain, nausea, vomiting, bloody stools or diarrhea [] : Denies dysuria or hematuria [] Musculoskeletal: Denies back pain or joint pain [] Integument: Denies rash or skin lesions [] Neurologic: Denies headache, focal weakness or sensory changes [] Endocrine: Denies polyuria or polydipsia [] All other systems were reviewed and found to be within normal limits, except as documented in this note. Current Medications Current Medications Current Medications Medications (Trade) Dose Ordered Sig/Salima Start Time Stop Time Status Last Admin Dose Admin Ceftriaxone Sodium 50 ml @ 100 mls/hr 1X ONCE 03/28/18 11:00 03/28/18 11:29 Allergies Allergies Allergies Coded Allergies Type Severity Reaction Last Updated Verified Penicillins Allergy Intermediate HIVES 10/10/17 Yes amoxicillin Allergy Intermediate HIVES 10/10/17 Yes I S O L A T I O N *CONTACT* Allergy Unknown 10/10/17 Yes Physical Exam Physical Exam Constitutional: Well developed, well nourished, no acute distress, non-toxic appearance. [] HENT: Normocephalic, atraumatic, bilateral external ears normal, oropharynx moist, no oral exudates, nose normal. [] Eyes: PERRLA, EOMI, conjunctiva normal, no discharge. [] Neck: Normal range of motion, no tenderness, supple, no stridor. [] Cardiovascular:Heart rate regular rhythm, no murmur [] Lungs & Thorax: Bilateral breath sounds clear to auscultation [] Abdomen: Bowel sounds normal, soft, no tenderness, no masses, no pulsatile masses. [] Skin: Warm, dry, no erythema, no rash. [] Back: No tenderness, no CVA tenderness. [] Extremities: No tenderness, no cyanosis, no clubbing, ROM intact, no edema. [] Neurologic: Alert and oriented X 3, normal motor function, normal sensory function, no focal deficits noted. [] Psychologic: Affect normal, judgement normal, mood normal. [] Current Patient Data Lab Values Laboratory Tests Test 03/28/18 10:10 Urine Collection Type Unknown Urine Color Yellow Urine Clarity Clear Urine pH 7.0 Urine Specific [place] 1.010 Urine Protein Negative mg/dL (NEG-TRACE) Urine Glucose (UA) Negative mg/dL (NEG) Urine Ketones (Stick) Negative mg/dL (NEG) Urine Blood Negative (NEG) Urine Nitrite Negative (NEG) Urine Bilirubin Negative (NEG) Urine Urobilinogen Dipstick 0.2 mg/dL (0.2 mg/dL) Urine Leukocyte Esterase Small (NEG) Urine RBC Occ /HPF (0-2) Urine WBC 20-40 /HPF (0-4) Urine Squamous Epithelial Cells Occ /LPF Urine Bacteria Moderate /HPF (0-FEW) Urine Mucus Mod /LPF EKG EKG [] Radiology/Procedures Radiology/Procedures [] Course & Med Decision Making Course & Med Decision Making Pertinent Labs and Imaging studies reviewed. (See chart for details) [] Dragon Disclaimer Dragon Disclaimer This electronic medical record was generated, in whole or in part, using a voice recognition dictation system. Departure Departure Impression: Primary Impression: Foreign body in urethra, initial encounter Additional Impression: Urinary tract infection Disposition: ADMITTED INPATIENT Admitting Physician: Rupert Fitch Condition: STABLE Referrals: NO PCP (PCP) Problem Qualifiers Additional Impression: Urinary tract infection Urinary tract infection type: site unspecified Hematuria presence: without hematuria Qualified Codes: N39.0 - Urinary tract infection, site not specified YANIV PRADO [employer] MACHINE REPAIRER Mar 28, 2018 11:02
--- NOTE | 2018-03-28 12:16 | PDOC1 ---
History and Physical Date of Admission Date of Admission DATE: 03/28/18 TIME: 12:15 Past Medical History Past Medical History Past Medical History Past Medical History Past Medical History: Anxiety, Depression, Schizophrenia, Other Additional Past Medical Histor: foreign bodies in penis Past Surgical History: Other Additional Past Surgical Histo: PENILE SURGERY Alcohol Use: None Drug Use: None family hx obesity Cardiovascular: No pertinent hx Pulmonary: No pertinent hx Psych: Bipolar, Depression, Other Past Surgical History Past Surgical History: Cystoscopy, Other Family History Family History: No Significant, High Cholestrol Family History: Other Social History Smoke: No ALCOHOL: none Drugs: None Current Problem List Problem List Problems Medical Problems: (1) Foreign body in urethra, initial encounter Status: Acute (2) Urinary tract infection Status: Acute Current Medications Current Medications Current Medications Ceftriaxone Sodium 50 ml @ 100 mls/hr 1X ONCE IV Last administered on at 11:33; Start 03/28/18 at 11:00; Stop 03/28/18 at 11:29; Status DC Ciprofloxacin/ Dextrose 200 ml @ 200 mls/hr 1X PREOP IV ; Start 03/28/18 at 15 :00 Active Scripts Active Reported Depakote Er (Divalproex Sodium) 250 Mg Tab.er.24h 250 Mg PO DAILY Bactrim Ds Tablet (Sulfamethoxazole/Trimethoprim) 1 Each Tablet 1 Each PO BID Zoloft (Sertraline Hcl) 25 Mg Tablet 1 Tab PO HS Tylenol (Acetaminophen) 325 Mg Tablet 2 Tab PO Q6HRS PRN Ibuprofen 400 Mg Tablet 400 Mg PO PRN Q6HRS PRN Effexor Xr (Venlafaxine Hcl) 75 Mg Cap.er.24h 225 Mg PO DAILY Zyprexa (Olanzapine) 20 Mg Tablet 20 Mg PO HS Vistaril (Hydroxyzine Pamoate) 25 Mg Capsule 1 Cap PO DAILY08 Anti-Dandruff ([place] Tar) 251 Ml Shampoo 251 Ml TP TWICE WEEKLY Anti-Dandruff ([place] Tar) 251 Ml Shampoo 251 Ml TP Allergies Allergies: Coded Allergies: Penicillins (Verified Allergy, Intermediate, HIVES, 10/10/17) amoxicillin (Verified Allergy, Intermediate, HIVES, 10/10/17) I S O L A T I O N *CONTACT* (Verified Allergy, Unknown, 10/10/17) mrsa ROS Review of System Review of Systems Review of Systems Constitutional: Denies fever or chills [] Eyes: Denies change in visual acuity, redness, or eye pain [] HENT: Denies nasal congestion or sore throat [] Respiratory: Denies cough or shortness of breath [] Cardiovascular: No additional information not addressed in HPI [] GI: Denies abdominal pain, nausea, vomiting, bloody stools or diarrhea [] : Denies dysuria or hematuria [] Musculoskeletal: Denies back pain or joint pain [] Integument: Denies rash or skin lesions [] Neurologic: Denies headache, focal weakness or sensory changes [] Endocrine: Denies polyuria or polydipsia [] 14 pt systems were reviewed and found to be within normal limits, except as documented General: No: Chills, Night Sweats, Fatigue, Malaise, Appetite, Other Neurological: Yes Behavorial Changes Physical Exam Physical Exam Physical Exam Physical Exam Constitutional: Well developed, well nourished, no acute distress, non-toxic appearance. [] HENT: Normocephalic, atraumatic, bilateral external ears normal, oropharynx moist, no oral exudates, nose normal. [] Eyes: PERRLA, EOMI, conjunctiva normal, no discharge. [] Neck: Normal range of motion, no tenderness, supple, no stridor. [] Cardiovascular:Heart rate regular rhythm, no murmur [] Lungs & Thorax: Bilateral breath sounds clear to auscultation [] Abdomen: Bowel sounds normal, soft, no tenderness, no masses, no pulsatile masses. [] Skin: Warm, dry, no erythema, no rash. [] Back: No tenderness, no CVA tenderness. [] Extremities: No tenderness, no cyanosis, no clubbing, ROM intact, no edema. [] Neurologic: Alert and oriented X 3, normal motor function, normal sensory function, no focal deficits noted. [] Psychologic: Affect normal, judgement poor mood anxious [] General: Cooperative HEENT: Atraumatic, PERRLA Lungs: Clear to auscultation Heart: S1S2 Breasts: Not examined Abdomen: Normal bowel sounds, Soft Rectal Exam: not examined Extremities: No cyanosis Vitals Vitals Vital Signs Date Time Temp Pulse Resp B/P (MAP) Pulse Ox O2 Delivery O2 Flow Rate FiO2 03/28/18 10:00 98.6 76 16 124/81 (95) 95 Room Air 98.6 Labs Labs Laboratory Tests Test 03/28/18 10:10 Urine Collection Type Unknown Urine Color Yellow Urine Clarity Clear Urine pH 7.0 Urine Specific [place] 1.010 Urine Protein Negative mg/dL (NEG-TRACE) Urine Glucose (UA) Negative mg/dL (NEG) Urine Ketones (Stick) Negative mg/dL (NEG) Urine Blood Negative (NEG) Urine Nitrite Negative (NEG) Urine Bilirubin Negative (NEG) Urine Urobilinogen Dipstick 0.2 mg/dL (0.2 mg/dL) Urine Leukocyte Esterase Small (NEG) Urine RBC Occ /HPF (0-2) Urine WBC 20-40 /HPF (0-4) Urine Squamous Epithelial Cells Occ /LPF Urine Bacteria Moderate /HPF (0-FEW) Urine Mucus Mod /LPF Laboratory Tests Test 03/28/18 10:10 Urine Collection Type Unknown Urine Color Yellow Urine Clarity Clear Urine pH 7.0 Urine Specific [place] 1.010 Urine Protein Negative mg/dL (NEG-TRACE) Urine Glucose (UA) Negative mg/dL (NEG) Urine Ketones (Stick) Negative mg/dL (NEG) Urine Blood Negative (NEG) Urine Nitrite Negative (NEG) Urine Bilirubin Negative (NEG) Urine Urobilinogen Dipstick 0.2 mg/dL (0.2 mg/dL) Urine Leukocyte Esterase Small (NEG) Urine RBC Occ /HPF (0-2) Urine WBC 20-40 /HPF (0-4) Urine Squamous Epithelial Cells Occ /LPF Urine Bacteria Moderate /HPF (0-FEW) Urine Mucus Mod /LPF VTE Prophylaxis Ordered VTE Prophylaxis Devices: No VTE Pharmacological Prophylaxi: Yes Assessment/Plan Assessment/Plan ADMISSION DIAGNOSIS: Foreign body , glass in urethra. plan npo iv rocephin 1 gm x 1 urology consult to OR today iv fluids home meds BALDOMERO BOND MD Mar 28, 2018 12:16
[2018-03-28] MEDS ORDERED: ACETAMINOPHEN 325 MG TABLET. PO PRN (12:30)
[2018-03-28] MEDS: hydrOXYzine PAMOATE 25 MG CAPSULE PO SCH (12:45)
[2018-03-28 13:00] VITALS: BP 135/83
[2018-03-28] MEDS: DIVALPROEX EXTENDED RELEASE 250 MG TAB.ER.24H. PO SCH (13:00)
--- NOTE | 2018-03-28 13:08 | PDOC2 ---
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 He does this, on average, once every 3-4 weeks. This time he inserted a piece of glass into his urethra shortly after the last time he was here for spoon handle extraction and used another piece of a spoon to push it down in there. The [facility] physician gave him some flomax and pulled the spoon handle out with some forceps per patient report but was not able to get the glass. Since then he has noticed some pain when he goes to the bathroom. He denies fevers or seeing drainage from his penis. Past Medical History Cardiovascular: No pertinent hx Pulmonary: No pertinent hx Psych: Bipolar, Depression, Other Renal/: Other (Multiple foreign body insertion into urethra ) Past Surgical History Past Surgical History: Cystoscopy, Other Family History Family History: No Significant, High Cholestrol Social History Social History: Other No ALCOHOL: none Drugs: None Current Problem List Problems: (1) Urethral foreign body Current Medications Current Medications Current Medications Acetaminophen (Tylenol) 650 mg PRN Q6HRS PRN PO PAIN; Start 03/28/18 at 12:30 Ceftriaxone Sodium 50 ml @ 100 mls/hr 1X ONCE IV Last administered on at 11:33; Start 03/28/18 at 11:00; Stop 03/28/18 at 11:29; Status DC Ciprofloxacin/ Dextrose 200 ml @ 200 mls/hr 1X PREOP IV ; Start 03/28/18 at 15 :00 Divalproex Sodium (Depakote Er) 250 mg DAILY PO ; Start 03/28/18 at 13:00 Hydroxyzine Pamoate (Vistaril) 25 mg DAILY08 PO ; Start 03/28/18 at 12:45 Olanzapine (ZyPREXA) 20 mg QHS PO ; Start 03/28/18 at 21:00 Sertraline HCl (Zoloft) 25 mg QHS PO ; Start 03/28/18 at 21:00 Venlafaxine HCl (Effexor) 75 mg TID PO ; Start 03/28/18 at 14:00 Allergies Allergies: Coded Allergies: Penicillins (Verified Allergy, Intermediate, HIVES, 10/10/17) amoxicillin (Verified Allergy, Intermediate, HIVES, 10/10/17) I S O L A T I O N *CONTACT* (Verified Allergy, Unknown, 10/10/17) mrsa ROS Review Of Systems: CONSTITUTIONAL: No fever or chills EYES: No recent changes SKIN: No rash or itching CARDIOVASCULAR: No chest pain, syncope, palpitations, or edema RESPIRATORY: No SOB or cough GASTROINTESTINAL: No nausea, vomiting or abdominal pain NEUROLOGICAL: No headaches or weakness ENDOCRINE: No cold or heat intolerance GENITOURINARY: + dysuria, foreign body in urethra. MUSCULOSKELETAL: No back pain or joint pain LYMPHATICS: No enlarged lymph nodes PSYCHIATRIC: No anxiety or depression Physical Exam Physical Exam: General: Pleasant, no acute distress, well groomed Eyes: conjunctiva anicteric, eyes full range of motion ENT: moist oral mucosa, normal dentition Neck: Trachea midline, no masses Respiratory: unlabored breathing, not using accessory muscles Pelvic: pain in urethra. Normal circumcised phallus, unable to visualize or feel foreign body. Skin: no rashes or skin lesions on visualized skin Psych: normal mood, affect. Alert and oriented x 3. Vitals VITALS Vital Signs Date Time Temp Pulse Resp B/P (MAP) Pulse Ox O2 Delivery O2 Flow Rate FiO2 03/28/18 12:28 74 16 127/77 (94) 96 Room Air 03/28/18 10:00 98.6 98.6 Labs Labs Laboratory Tests Test 03/28/18 10:10 Urine Collection Type Unknown Urine Color Yellow Urine Clarity Clear Urine pH 7.0 Urine Specific [place] 1.010 Urine Protein Negative mg/dL (NEG-TRACE) Urine Glucose (UA) Negative mg/dL (NEG) Urine Ketones (Stick) Negative mg/dL (NEG) Urine Blood Negative (NEG) Urine Nitrite Negative (NEG) Urine Bilirubin Negative (NEG) Urine Urobilinogen Dipstick 0.2 mg/dL (0.2 mg/dL) Urine Leukocyte Esterase Small (NEG) Urine RBC Occ /HPF (0-2) Urine WBC 20-40 /HPF (0-4) Urine Squamous Epithelial Cells Occ /LPF Urine Bacteria Moderate /HPF (0-FEW) Urine Mucus Mod /LPF Laboratory Tests Test 03/28/18 10:10 Urine Collection Type Unknown Urine Color Yellow Urine Clarity Clear Urine pH 7.0 Urine Specific [place] 1.010 Urine Protein Negative mg/dL (NEG-TRACE) Urine Glucose (UA) Negative mg/dL (NEG) Urine Ketones (Stick) Negative mg/dL (NEG) Urine Blood Negative (NEG) Urine Nitrite Negative (NEG) Urine Bilirubin Negative (NEG) Urine Urobilinogen Dipstick 0.2 mg/dL (0.2 mg/dL) Urine Leukocyte Esterase Small (NEG) Urine RBC Occ /HPF (0-2) Urine WBC 20-40 /HPF (0-4) Urine Squamous Epithelial Cells Occ /LPF Urine Bacteria Moderate /HPF (0-FEW) Urine Mucus Mod /LPF Assessment/Plan Assessment/Plan Patient will go to [place] today for foreign body [place] [facility] [place] been [place] and patient added on to follow Dr. Martinez's other two cases Cipro canceled, as patient already had Rocephin at 11. Consents entered. Will follow. AMAN SHEPHERD APRN Mar 28, 2018 13:08
[2018-03-28] MEDS: VENLAFAXINE 75 MG TABLET. PO SCH ×2 (13:25→21:50)
[2018-03-28] MEDS ORDERED: CIPROFLOXACIN 400MG PREMIX 200 ML IV SCH (15:00)
[2018-03-28] MEDS ORDERED: PROPOFOL 20 ML IV ONE ×2 (16:01→16:55)
[2018-03-28] MEDS ORDERED: DEXAMETHASONE SOD PHOS 20 MG/5 ML VIAL. ONE (16:01)
[2018-03-28] MEDS ORDERED: SEVOFLURANE 31 TO 60 MINUTES. IH ONE (16:01)
[2018-03-28] MEDS ORDERED: ONDANSETRON PF 4 MG/2 ML VIAL. ONE (16:02)
[2018-03-28] MEDS ORDERED: fentaNYL PF VIAL 100 MCG/2 ML VIAL ONE (16:28)
--- NOTE | 2018-03-28 16:59 | PDOC4 ---
OPERATIVE NOTE Date: Date: Jul 30, 2017 Pre-Op Diagnosis: urethra FB Post-Op Diagnosis: SAME Procedure Performed: CYSTO, URETHRA FB removal Surgeon: Anesthesia Type: GA Blood Loss: 1ml Specimans Obtained: 3 glass pieces Findings: as above Complications: none evident ADDISON GONZALEZ MD Mar 28, 2018 16:59
--- NOTE | 2018-03-28 17:26 | OP ---
DATE OF SURGERY: 03/28/2018 PREOPERATIVE DIAGNOSIS: Urethral foreign body. POSTOPERATIVE DIAGNOSIS: Urethral foreign body. PROCEDURE: Cystoscopy with foreign body removal. SURGEON: Maame Martinez M.D. ANESTHESIA: General inhalation. CONDITION: Stable. COMPLICATIONS: None. FINDINGS: Three pieces of glass in bulbar urethra removed completely. No evidence of any residual pieces in the bladder or the urethra on final inspection. ESTIMATED BLOOD LOSS: 1-2 mL. DESCRIPTION OF PROCEDURE: The patient was taken back to the procedure room, and placed for general anesthesia in supine position, per their protocol. He was prepped and draped in usual sterile fashion in dorsal lithotomy position. Timeout was performed. SCDs were attached. IV antibiotics were administered. A 21-Ukrainian rigid cystoscope was advanced per urethra. Per anterior urethra into the bulbar urethra, 3 glass pieces were noted. These were sequentially removed with a flexible foreign body grasper. Once the urethra was clear, a final inspection of the bladder visualized, no residual in the bladder. Upon final inspection, both anterior and posterior urethra was free of any residual foreign body. The patient was awakened and taken to the PACU in stable condition. DISPOSITION: May discharge later today. Follow up p.r.n. MAAME MARTINEZ MD DR: RADHA/mariusz JOB#: [id number] / [id number]
[2018-03-28 19:00] VITALS: BP 143/65
[2018-03-28] MEDS ORDERED: SERTRALINE 25 MG TABLET. PO SCH (21:00)
[2018-03-28] MEDS ORDERED: OLANZapine 5 MG TABLET PO SCH (21:00)
[2018-03-28 23:00] VITALS: BP 132/74
[2018-03-29 03:00] VITALS: BP 136/79
[2018-03-29 07:00] VITALS: BP 142/77
[2018-03-29 07:20] LABS: BASO % 0 % (0-3); EOS # 0.1 x10^3/uL (0.0-0.7); EOS % 1 % (0-3); HEMOGLOBIN 14.7 g/dL (13.0-17.5); LYMPH # 1.4 x10^3/uL (1.0-4.8); LYMPH % 18 % (24-48); MEAN CORPUSCULAR HEMOGLOBIN 33 pg (25-35); MEAN CORPUSCULAR HGB CONC 36 g/dL (31-37); MEAN CORPUSCULAR VOLUME 90 fL (79-100); MONO # 0.5 x10^3/uL (0.0-1.1); MONO % 7 % (0-9); NEUT # 6.2 x10^3uL (1.8-7.7); NEUT % 75 % (31-73); PLATELET COUNT 301 x10^3/uL (140-400); RED BLOOD COUNT 4.54 x10^6/uL (4.30-5.70); RED CELL DISTRIBUTION WIDTH 12.3 % (11.5-14.5); WHITE BLOOD COUNT 8.3 x10^3/uL (4.0-11.0)
[2018-03-29 07:35] LABS: CALCIUM 9.7 mg/dL (8.5-10.1); CREATININE 0.8 mg/dL (0.7-1.3); GFR 118.8; POTASSIUM 3.7 mmol/L (3.5-5.1)
--- NOTE | 2018-03-29 08:49 | PDOC ---
SUBJECTIVE Subjective Patient has noted some burning when he urinates, but is otherwise ok. He is requesting a psych evaluation to help him deal with the voices he is hearing and his thoughts of self-harm. He has one voice "Aleksander" who screams at him to do horrible things to himself. OBJECTIVE Objective Physical Exam: General appearance: Alert and Oriented Head: Normocephalic, without obvious abnormality Eyes: conjunctivae/corneas clear. PERRL, EOM's intact. Fundi benign Lungs: regular respirations, non labored breathing Pelvic: normal circumcised phallus, no drainage noted. Vital Signs Vital Signs Date Time Temp Pulse Resp B/P (MAP) Pulse Ox O2 Delivery O2 Flow Rate FiO2 03/29/18 07:00 97.5 78 18 142/77 (98) 94 Room Air 97.5 03/29/18 03:00 98.5 57 18 136/79 (98) 90 Room Air 98.5 03/28/18 23:00 99.1 84 18 132/74 (93) 96 Room Air 99.1 03/28/18 20:00 Room Air 03/28/18 19:00 98.1 85 18 143/65 (91) 96 Room Air 98.1 03/28/18 17:34 86 16 151/88 96 Room Air 03/28/18 17:19 87 16 145/90 96 Room Air 03/28/18 17:04 98.2 88 16 151/86 98 Nasal Cannula 2 98.2 03/28/18 14:25 98.6 82 15 119/75 96 98.6 03/28/18 13:00 98.8 80 18 135/83 (100) 97 Room Air 98.8 03/28/18 13:00 Room Air 03/28/18 12:28 74 16 127/77 (94) 96 Room Air 03/28/18 11:58 80 16 136/79 (98) 96 Room Air 03/28/18 11:28 80 16 127/76 (93) 96 Room Air 03/28/18 10:00 98.6 76 16 124/81 (95) 95 Room Air 98.6 I & O Intake and Output 03/29/18 07:00 Intake Total 850 ml Output Total 2340 ml Balance -1490 ml Intake Oral 600 ml IV Total 250 ml Output Urine Total 2340 ml Estimated Blood Loss 0 ml # Voids 3 PHYSICAL EXAM Physical Exam Physical Exam: General appearance: Alert and Oriented Head: Normocephalic, without obvious abnormality Eyes: conjunctivae/corneas clear. PERRL, EOM's intact. Fundi benign Lungs: regular respirations, non labored breathing Pelvic: normal circumcised phallus, no drainage noted. ASSESSMENT/PLAN Assessment/Plan Patient is POD # [address] Martinez was able to retrieve approximately three pieces of glass from the bulbar urethra yesterday. From a Urology perspective, OK to discharge home whenever medical team is ready. Patient is requesting a psych evaluation, which would be beneficial. However, I do not think we have psych services available at this hospital. Recommend obtaining this as an outpatient. I have advised the patient not to insert anything else into his urethra. Pyridium 200 mg TID prn burning. Guards have our card if they have any questions. All questions answered. Problems: (1) Urethral foreign body COMMENT Lab Laboratory Tests Test 03/28/18 10:10 03/29/18 06:35 Urine Collection Type Unknown Urine Color Yellow Urine Clarity Clear Urine pH 7.0 Urine Specific [place] 1.010 Urine Protein Negative mg/dL (NEG-TRACE) Urine Glucose (UA) Negative mg/dL (NEG) Urine Ketones (Stick) Negative mg/dL (NEG) Urine Blood Negative (NEG) Urine Nitrite Negative (NEG) Urine Bilirubin Negative (NEG) Urine Urobilinogen Dipstick 0.2 mg/dL (0.2 mg/dL) Urine Leukocyte Esterase Small (NEG) Urine RBC Occ /HPF (0-2) Urine WBC 20-40 /HPF (0-4) Urine Squamous Epithelial Cells Occ /LPF Urine Bacteria Moderate /HPF (0-FEW) Urine Mucus Mod /LPF White Blood Count 8.3 x10^3/uL (4.0-11.0) Red Blood Count 4.54 x10^6/uL (4.30-5.70) Hemoglobin 14.7 g/dL (13.0-17.5) Hematocrit 41.0 % (39.0-53.0) Mean Corpuscular Volume 90 fL (79-100) Mean Corpuscular Hemoglobin 33 pg (25-35) Mean Corpuscular Hemoglobin Concent 36 g/dL (31-37) Red Cell Distribution Width 12.3 % (11.5-14.5) Platelet Count 301 x10^3/uL (140-400) Neutrophils (%) (Auto) 75 % (31-73) Lymphocytes (%) (Auto) 18 % (24-48) Monocytes (%) (Auto) 7 % (0-9) Eosinophils (%) (Auto) 1 % (0-3) Basophils (%) (Auto) 0 % (0-3) Neutrophils # (Auto) 6.2 x10^3uL (1.8-7.7) Lymphocytes # (Auto) 1.4 x10^3/uL (1.0-4.8) Monocytes # (Auto) 0.5 x10^3/uL (0.0-1.1) Eosinophils # (Auto) 0.1 x10^3/uL (0.0-0.7) Basophils # (Auto) 0.0 x10^3/uL (0.0-0.2) Sodium Level 143 mmol/L (136-145) Potassium Level 3.7 mmol/L (3.5-5.1) Chloride Level 105 mmol/L (98-107) Carbon Dioxide Level 26 mmol/L (21-32) Anion Gap 12 (6-14) Blood Urea Nitrogen 8 mg/dL (8-26) Creatinine 0.8 mg/dL (0.7-1.3) Estimated GFR (Cockcroft-Gault) 118.8 Glucose Level 152 mg/dL (70-99) Calcium Level 9.7 mg/dL (8.5-10.1) AMAN SHEPHERD APRN Mar 29, 2018 08:49
[2018-03-29] MEDS ORDERED: PHENAZOPYRIDINE 200 MG TABLET. PO PRN (09:00)
[2018-03-29] MEDS: VENLAFAXINE 75 MG TABLET. PO SCH ×2 (09:40→13:20)
[2018-03-29] MEDS: DIVALPROEX EXTENDED RELEASE 250 MG TAB.ER.24H. PO SCH (09:40)
[2018-03-29] MEDS: hydrOXYzine PAMOATE 25 MG CAPSULE PO SCH (09:40)
[2018-03-29 11:00] VITALS: BP 143/80
--- NOTE | 2018-03-29 11:01 | PDOC ---
PROGRESS NOTES Vitals Vitals Vital Signs Date Time Temp Pulse Resp B/P (MAP) Pulse Ox O2 Delivery O2 Flow Rate FiO2 03/29/18 07:00 97.5 78 18 142/77 (98) 94 Room Air 97.5 03/28/18 17:04 2 Physical Exam General: Alert, Oriented X3, Cooperative Heart: Regular rate Lungs: Clear Abdomen: Normal bowel sounds, Soft Extremities: No clubbing, No cyanosis Labs LABS Laboratory Tests Test 03/29/18 06:35 White Blood Count 8.3 x10^3/uL (4.0-11.0) Red Blood Count 4.54 x10^6/uL (4.30-5.70) Hemoglobin 14.7 g/dL (13.0-17.5) Hematocrit 41.0 % (39.0-53.0) Mean Corpuscular Volume 90 fL (79-100) Mean Corpuscular Hemoglobin 33 pg (25-35) Mean Corpuscular Hemoglobin Concent 36 g/dL (31-37) Red Cell Distribution Width 12.3 % (11.5-14.5) Platelet Count 301 x10^3/uL (140-400) Neutrophils (%) (Auto) 75 % (31-73) Lymphocytes (%) (Auto) 18 % (24-48) Monocytes (%) (Auto) 7 % (0-9) Eosinophils (%) (Auto) 1 % (0-3) Basophils (%) (Auto) 0 % (0-3) Neutrophils # (Auto) 6.2 x10^3uL (1.8-7.7) Lymphocytes # (Auto) 1.4 x10^3/uL (1.0-4.8) Monocytes # (Auto) 0.5 x10^3/uL (0.0-1.1) Eosinophils # (Auto) 0.1 x10^3/uL (0.0-0.7) Basophils # (Auto) 0.0 x10^3/uL (0.0-0.2) Sodium Level 143 mmol/L (136-145) Potassium Level 3.7 mmol/L (3.5-5.1) Chloride Level 105 mmol/L (98-107) Carbon Dioxide Level 26 mmol/L (21-32) Anion Gap 12 (6-14) Blood Urea Nitrogen 8 mg/dL (8-26) Creatinine 0.8 mg/dL (0.7-1.3) Estimated GFR (Cockcroft-Gault) 118.8 Glucose Level 152 mg/dL (70-99) Calcium Level 9.7 mg/dL (8.5-10.1) Assessment and Plan Assessmemt and Plan Problems Medical Problems: (1) Foreign body in urethra, initial encounter Status: Acute (2) Urinary tract infection Status: Acute Comment Review of Relevant I have reviewed the following items salvador (where applicable) has been applied. Labs Laboratory Tests Test 03/28/18 10:10 03/29/18 06:35 Urine Collection Type Unknown Urine Color Yellow Urine Clarity Clear Urine pH 7.0 Urine Specific [place] 1.010 Urine Protein Negative mg/dL (NEG-TRACE) Urine Glucose (UA) Negative mg/dL (NEG) Urine Ketones (Stick) Negative mg/dL (NEG) Urine Blood Negative (NEG) Urine Nitrite Negative (NEG) Urine Bilirubin Negative (NEG) Urine Urobilinogen Dipstick 0.2 mg/dL (0.2 mg/dL) Urine Leukocyte Esterase Small (NEG) Urine RBC Occ /HPF (0-2) Urine WBC 20-40 /HPF (0-4) Urine Squamous Epithelial Cells Occ /LPF Urine Bacteria Moderate /HPF (0-FEW) Urine Mucus Mod /LPF White Blood Count 8.3 x10^3/uL (4.0-11.0) Red Blood Count 4.54 x10^6/uL (4.30-5.70) Hemoglobin 14.7 g/dL (13.0-17.5) Hematocrit 41.0 % (39.0-53.0) Mean Corpuscular Volume 90 fL (79-100) Mean Corpuscular Hemoglobin 33 pg (25-35) Mean Corpuscular Hemoglobin Concent 36 g/dL (31-37) Red Cell Distribution Width 12.3 % (11.5-14.5) Platelet Count 301 x10^3/uL (140-400) Neutrophils (%) (Auto) 75 % (31-73) Lymphocytes (%) (Auto) 18 % (24-48) Monocytes (%) (Auto) 7 % (0-9) Eosinophils (%) (Auto) 1 % (0-3) Basophils (%) (Auto) 0 % (0-3) Neutrophils # (Auto) 6.2 x10^3uL (1.8-7.7) Lymphocytes # (Auto) 1.4 x10^3/uL (1.0-4.8) Monocytes # (Auto) 0.5 x10^3/uL (0.0-1.1) Eosinophils # (Auto) 0.1 x10^3/uL (0.0-0.7) Basophils # (Auto) 0.0 x10^3/uL (0.0-0.2) Sodium Level 143 mmol/L (136-145) Potassium Level 3.7 mmol/L (3.5-5.1) Chloride Level 105 mmol/L (98-107) Carbon Dioxide Level 26 mmol/L (21-32) Anion Gap 12 (6-14) Blood Urea Nitrogen 8 mg/dL (8-26) Creatinine 0.8 mg/dL (0.7-1.3) Estimated GFR (Cockcroft-Gault) 118.8 Glucose Level 152 mg/dL (70-99) Calcium Level 9.7 mg/dL (8.5-10.1) Laboratory Tests Test 03/29/18 06:35 White Blood Count 8.3 x10^3/uL (4.0-11.0) Red Blood Count 4.54 x10^6/uL (4.30-5.70) Hemoglobin 14.7 g/dL (13.0-17.5) Hematocrit 41.0 % (39.0-53.0) Mean Corpuscular Volume 90 fL (79-100) Mean Corpuscular Hemoglobin 33 pg (25-35) Mean Corpuscular Hemoglobin Concent 36 g/dL (31-37) Red Cell Distribution Width 12.3 % (11.5-14.5) Platelet Count 301 x10^3/uL (140-400) Neutrophils (%) (Auto) 75 % (31-73) Lymphocytes (%) (Auto) 18 % (24-48) Monocytes (%) (Auto) 7 % (0-9) Eosinophils (%) (Auto) 1 % (0-3) Basophils (%) (Auto) 0 % (0-3) Neutrophils # (Auto) 6.2 x10^3uL (1.8-7.7) Lymphocytes # (Auto) 1.4 x10^3/uL (1.0-4.8) Monocytes # (Auto) 0.5 x10^3/uL (0.0-1.1) Eosinophils # (Auto) 0.1 x10^3/uL (0.0-0.7) Basophils # (Auto) 0.0 x10^3/uL (0.0-0.2) Sodium Level 143 mmol/L (136-145) Potassium Level 3.7 mmol/L (3.5-5.1) Chloride Level 105 mmol/L (98-107) Carbon Dioxide Level 26 mmol/L (21-32) Anion Gap 12 (6-14) Blood Urea Nitrogen 8 mg/dL (8-26) Creatinine 0.8 mg/dL (0.7-1.3) Estimated GFR (Cockcroft-Gault) 118.8 Glucose Level 152 mg/dL (70-99) Calcium Level 9.7 mg/dL (8.5-10.1) Medications Current Medications Ceftriaxone Sodium 50 ml @ 100 mls/hr 1X ONCE IV Last administered on at 11:33; Start 03/28/18 at 11:00; Stop 03/28/18 at 11:29; Status DC Ciprofloxacin/ Dextrose 200 ml @ 200 mls/hr 1X PREOP IV Last administered on 03/28/18at 16:40; Start 03/28/18 at 15:00 Acetaminophen (Tylenol) 650 mg PRN Q6HRS PRN PO PAIN; Start 03/28/18 at 12:30 Divalproex Sodium (Depakote Er) 250 mg DAILY PO Last administered on 03/29/18at 09:40; Start 03/28/18 at 13:00 Hydroxyzine Pamoate (Vistaril) 25 mg DAILY08 PO Last administered on 03/29/18 09:40; Start 03/28/18 at 12:45 Olanzapine (ZyPREXA) 20 mg QHS PO Last administered on 03/28/18at 21:50; Start 03/28/18 at 21:00 Sertraline HCl (Zoloft) 25 mg QHS PO Last administered on 03/28/18at 21:50; Start 03/28/18 at 21:00 Venlafaxine HCl (Effexor) 75 mg TID PO Last administered on 03/29/18at 09:40; Start 03/28/18 at 14:00 Sevoflurane (Ultane) 30 ml STK-MED ONCE IH ; Start 03/28/18 at 16:01; Stop 03/28 at 16:02; Status DC Propofol 20 ml @ As Directed STK-MED ONCE IV ; Start 03/28/18 at 16:01; Stop 07/03 at 16:02; Status DC Dexamethasone Sodium Phosphate (Decadron) 20 mg STK-MED ONCE .ROUTE ; Start 07/03 at 16:01; Stop 03/28/18 at 16:02; Status DC Ondansetron HCl (Zofran) 4 mg STK-MED ONCE .ROUTE ; Start 03/28/18 at 16:02; Stop 03/28/18 at 16:03; Status DC Fentanyl Citrate (Fentanyl 2ml Vial) 100 mcg STK-MED ONCE .ROUTE ; Start at 16:28; Stop 03/28/18 at 16:29; Status DC Propofol 20 ml @ As Directed STK-MED ONCE IV ; Start 03/28/18 at 16:55; Stop 07/03 at 16:56; Status DC Phenazopyridine HCl (Pyridium) 200 mg PRN TID PRN PO URINARY PAIN; Start at 09:00 Active Scripts Active Reported Depakote Er (Divalproex Sodium) 250 Mg Tab.er.24h 250 Mg PO DAILY Bactrim Ds Tablet (Sulfamethoxazole/Trimethoprim) 1 Each Tablet 1 Each PO BID Zoloft (Sertraline Hcl) 25 Mg Tablet 1 Tab PO HS Tylenol (Acetaminophen) 325 Mg Tablet 2 Tab PO Q6HRS PRN Ibuprofen 400 Mg Tablet 400 Mg PO PRN Q6HRS PRN Effexor Xr (Venlafaxine Hcl) 75 Mg Cap.er.24h 225 Mg PO DAILY Zyprexa (Olanzapine) 20 Mg Tablet 20 Mg PO HS Vistaril (Hydroxyzine Pamoate) 25 Mg Capsule 1 Cap PO DAILY08 Anti-Dandruff ([place]) 251 Ml Shampoo 251 Ml TP TWICE WEEKLY Anti-Dandruff ([place]) 251 Ml Shampoo 251 Ml TP Vitals/I & O Vital Sign - Last 24 Hours 03/28/18 03/28/18 03/28/18/12/18 11:28 11:58 12:28 13:00 Pulse 80 80 74 Resp 16 16 16 B/P (MAP) 127/76 (93) 136/79 (98) 127/77 (94) Pulse Ox 96 96 96 O2 Delivery Room Air Room Air Room Air Room Air 03/28/18 03/28/18 03/28/18 03/28/18 13:00 14:25 17:04 17:19 Temp 98.8 98.6 98.2 98.8 98.6 98.2 Pulse 80 82 88 87 Resp 18 15 16 16 B/P (MAP) 135/83 (100) 119/75 151/86 145/90 Pulse Ox 97 96 98 96 O2 Delivery Room Air Nasal Cannula Room Air O2 Flow Rate 2 03/28/18 03/28/18 03/28/18 03/28/18 17:34 19:00 20:00 23:00 Temp 98.1 99.1 98.1 99.1 Pulse 86 85 84 Resp 16 18 18 B/P (MAP) 151/88 143/65 (91) 132/74 (93) Pulse Ox 96 96 96 O2 Delivery Room Air Room Air Room Air Room Air 03/29/18 03/29/18 03:00 07:00 Temp 98.5 97.5 98.5 97.5 Pulse 57 78 Resp 18 18 B/P (MAP) 136/79 (98) 142/77 (98) Pulse Ox 90 94 O2 Delivery Room Air Room Air Intake and Output 03/28/18 03/28/18 03/29/18 15:00 23:00 07:00 Intake Total 50 ml 800 ml Output Total 300 ml 840 ml 1200 ml Balance -250 ml -40 ml -1200 ml BALDOMERO BOND MD Mar 29, 2018 11:01
[2018-03-29] MEDS ORDERED: LACTOBACILLUS RHAMNOSUS GG 1 CAPSULE. PO SCH (12:00)
[2018-03-29] MEDS ORDERED: CIPROFLOXACIN HCL 250 MG TABLET. PO SCH (12:00)
--- NOTE | 2018-03-29 12:36 | PDOC3 ---
Discharge Summary Date of Admission: Mar 28, 2018 Date of Discharge: Mar 29, 2018 Follow-Up: 3-5 days Admitting Diagnosis comment: Assessment/Plan Assessment/Plan dismissal DIAGNOSIS: Foreign body , glass in urethra. plan urology consult ok with d/c home meds FINAL DIAGNOSIS Problems Medical Problems: (1) Foreign body in urethra, initial encounter Status: Acute (2) Urinary tract infection Status: Acute Brief Hospital Course Mr. Layne is a 22 old [sex] who presented with [ ] CONDITION AT DISCHARGE: Improved Discharge Medications Current Medications Ceftriaxone Sodium 50 ml @ 100 mls/hr 1X ONCE IV Last administered on at 11:33; Start 03/28/18 at 11:00; Stop 03/28/18 at 11:29; Status DC Ciprofloxacin/ Dextrose 200 ml @ 200 mls/hr 1X PREOP IV Last administered on 03/28/18at 16:40; Start 03/28/18 at 15:00 Acetaminophen (Tylenol) 650 mg PRN Q6HRS PRN PO PAIN; Start 03/28/18 at 12:30 Divalproex Sodium (Depakote Er) 250 mg DAILY PO Last administered on 03/29/18at 09:40; Start 03/28/18 at 13:00 Hydroxyzine Pamoate (Vistaril) 25 mg DAILY08 PO Last administered on 03/29/18at 09:40; Start 03/28/18 at 12:45 Olanzapine (ZyPREXA) 20 mg QHS PO Last administered on 03/28/18at 21:50; Start 03/28/18 at 21:00 Sertraline HCl (Zoloft) 25 mg QHS PO Last administered on 03/28/18at 21:50; Start 03/28/18 at 21:00 Venlafaxine HCl (Effexor) 75 mg TID PO Last administered on 03/29/18at 09:40; Start 03/28/18 at 14:00 Sevoflurane (Ultane) 30 ml STK-MED ONCE IH ; Start 03/28/18 at 16:01; Stop 03/28 at 16:02; Status DC Propofol 20 ml @ As Directed STK-MED ONCE IV ; Start 03/28/18 at 16:01; Stop 07/03 at 16:02; Status DC Dexamethasone Sodium Phosphate (Decadron) 20 mg STK-MED ONCE .ROUTE ; Start 07/03 at 16:01; Stop 03/28/18 at 16:02; Status DC Ondansetron HCl (Zofran) 4 mg STK-MED ONCE .ROUTE ; Start 03/28/18 at 16:02; Stop 03/28/18 at 16:03; Status DC Fentanyl Citrate (Fentanyl 2ml Vial) 100 mcg STK-MED ONCE .ROUTE ; Start at 16:28; Stop 03/28/18 at 16:29; Status DC Propofol 20 ml @ As Directed STK-MED ONCE IV ; Start 03/28/18 at 16:55; Stop 07/03 at 16:56; Status DC Phenazopyridine HCl (Pyridium) 200 mg PRN TID PRN PO URINARY PAIN; Start at 09:00 Ciprofloxacin (Cipro) 500 mg BID PO ; Start 03/29/18 at 12:00 Lactobacillus Rhamnosus (Culturelle) 1 cap BID PO ; Start 03/29/18 at 12:00 Active Scripts Active Reported Depakote Er (Divalproex Sodium) 250 Mg Tab.er.24h 250 Mg PO DAILY Bactrim Ds Tablet (Sulfamethoxazole/Trimethoprim) 1 Each Tablet 1 Each PO BID Zoloft (Sertraline Hcl) 25 Mg Tablet 1 Tab PO HS Tylenol (Acetaminophen) 325 Mg Tablet 2 Tab PO Q6HRS PRN Ibuprofen 400 Mg Tablet 400 Mg PO PRN Q6HRS PRN Effexor Xr (Venlafaxine Hcl) 75 Mg Cap.er.24h 225 Mg PO DAILY Zyprexa (Olanzapine) 20 Mg Tablet 20 Mg PO HS Vistaril (Hydroxyzine Pamoate) 25 Mg Capsule 1 Cap PO DAILY08 Anti-Dandruff ([place] Tar) 251 Ml Shampoo 251 Ml TP TWICE WEEKLY Anti-Dandruff ([place] Tar) 251 Ml Shampoo 251 Ml TP Vital Signs Vital Signs Date Time Temp Pulse Resp B/P (MAP) Pulse Ox O2 Delivery O2 Flow Rate FiO2 03/29/18 11:00 97.8 78 16 143/80 (101) 95 97.8 03/29/18 08:00 Room Air 03/28/18 17:04 2 Labs Laboratory Tests Test 03/28/18 10:10 03/29/18 06:35 Urine Collection Type Unknown Urine Color Yellow Urine Clarity Clear Urine pH 7.0 Urine Specific [place] 1.010 Urine Protein Negative mg/dL (NEG-TRACE) Urine Glucose (UA) Negative mg/dL (NEG) Urine Ketones (Stick) Negative mg/dL (NEG) Urine Blood Negative (NEG) Urine Nitrite Negative (NEG) Urine Bilirubin Negative (NEG) Urine Urobilinogen Dipstick 0.2 mg/dL (0.2 mg/dL) Urine Leukocyte Esterase Small (NEG) Urine RBC Occ /HPF (0-2) Urine WBC 20-40 /HPF (0-4) Urine Squamous Epithelial Cells Occ /LPF Urine Bacteria Moderate /HPF (0-FEW) Urine Mucus Mod /LPF White Blood Count 8.3 x10^3/uL (4.0-11.0) Red Blood Count 4.54 x10^6/uL (4.30-5.70) Hemoglobin 14.7 g/dL (13.0-17.5) Hematocrit 41.0 % (39.0-53.0) Mean Corpuscular Volume 90 fL (79-100) Mean Corpuscular Hemoglobin 33 pg (25-35) Mean Corpuscular Hemoglobin Concent 36 g/dL (31-37) Red Cell Distribution Width 12.3 % (11.5-14.5) Platelet Count 301 x10^3/uL (140-400) Neutrophils (%) (Auto) 75 % (31-73) Lymphocytes (%) (Auto) 18 % (24-48) Monocytes (%) (Auto) 7 % (0-9) Eosinophils (%) (Auto) 1 % (0-3) Basophils (%) (Auto) 0 % (0-3) Neutrophils # (Auto) 6.2 x10^3uL (1.8-7.7) Lymphocytes # (Auto) 1.4 x10^3/uL (1.0-4.8) Monocytes # (Auto) 0.5 x10^3/uL (0.0-1.1) Eosinophils # (Auto) 0.1 x10^3/uL (0.0-0.7) Basophils # (Auto) 0.0 x10^3/uL (0.0-0.2) Sodium Level 143 mmol/L (136-145) Potassium Level 3.7 mmol/L (3.5-5.1) Chloride Level 105 mmol/L (98-107) Carbon Dioxide Level 26 mmol/L (21-32) Anion Gap 12 (6-14) Blood Urea Nitrogen 8 mg/dL (8-26) Creatinine 0.8 mg/dL (0.7-1.3) Estimated GFR (Cockcroft-Gault) 118.8 Glucose Level 152 mg/dL (70-99) Calcium Level 9.7 mg/dL (8.5-10.1) Laboratory Tests Test 03/29/18 06:35 White Blood Count 8.3 x10^3/uL (4.0-11.0) Red Blood Count 4.54 x10^6/uL (4.30-5.70) Hemoglobin 14.7 g/dL (13.0-17.5) Hematocrit 41.0 % (39.0-53.0) Mean Corpuscular Volume 90 fL (79-100) Mean Corpuscular Hemoglobin 33 pg (25-35) Mean Corpuscular Hemoglobin Concent 36 g/dL (31-37) Red Cell Distribution Width 12.3 % (11.5-14.5) Platelet Count 301 x10^3/uL (140-400) Neutrophils (%) (Auto) 75 % (31-73) Lymphocytes (%) (Auto) 18 % (24-48) Monocytes (%) (Auto) 7 % (0-9) Eosinophils (%) (Auto) 1 % (0-3) Basophils (%) (Auto) 0 % (0-3) Neutrophils # (Auto) 6.2 x10^3uL (1.8-7.7) Lymphocytes # (Auto) 1.4 x10^3/uL (1.0-4.8) Monocytes # (Auto) 0.5 x10^3/uL (0.0-1.1) Eosinophils # (Auto) 0.1 x10^3/uL (0.0-0.7) Basophils # (Auto) 0.0 x10^3/uL (0.0-0.2) Sodium Level 143 mmol/L (136-145) Potassium Level 3.7 mmol/L (3.5-5.1) Chloride Level 105 mmol/L (98-107) Carbon Dioxide Level 26 mmol/L (21-32) Anion Gap 12 (6-14) Blood Urea Nitrogen 8 mg/dL (8-26) Creatinine 0.8 mg/dL (0.7-1.3) Estimated GFR (Cockcroft-Gault) 118.8 Glucose Level 152 mg/dL (70-99) Calcium Level 9.7 mg/dL (8.5-10.1) Allergies Allergies Coded Allergies Type Severity Reaction Last Updated Verified Penicillins Allergy Intermediate HIVES 10/10/17 Yes amoxicillin Allergy Intermediate HIVES 10/10/17 Yes I S O L A T I O N *CONTACT* Allergy Unknown 10/10/17 Yes Disposition/Orders: Other (back to care home) Patient Instructions d/c planning 31 min BALDOMERO BOND MD Mar 29, 2018 12:36
[2018-03-29] MEDS ORDERED: CIPR250T30 PO (12:38)
[2018-03-29] MEDS ORDERED: PHEN-444 PO (12:38)
== END 2018-03-29 14:05 | disposition home or self-care (01) | DRG 699 ==
LOC: ER 09:50 → EEVIPCON 09:50 → 4 NORTH 11:14
PROVIDERS: ADMIT Family Medicine; ATTEND Family Medicine
PROC: 0TCD8ZZ Extirpation of Matter from Urethra, Via Natural or Artificial Opening Endoscopic (ICD-10-PCS; principal; 2018-03-28 16:15)
DX: T19.0XXA Foreign body in urethra, initial encounter (principal); N39.0 Urinary tract infection, site not specified; F84.0 Autistic disorder; T19.1XXA Foreign body in bladder, initial encounter; F20.9 Schizophrenia, unspecified; F31.9 Bipolar disorder, unspecified; E66.9 Obesity, unspecified; F41.9 Anxiety disorder, unspecified; Z68.39 Body mass index [BMI] 39.0-39.9, adult; Z88.0 Allergy status to penicillin; Z88.8 Allergy status to other drugs, medicaments and biological substances; X58.XXXA Exposure to other specified factors, initial encounter; Y93.89 Activity, other specified; Y92.89 Other specified places as the place of occurrence of the external cause; Y99.8 Other external cause status
CPT/HCPCS: 36415; 72170; 80048; 81001; 85025; 87086; 96365; J0690; J0744; J1100; J2405; J2704; J3010; Q0177; 99285-25

== ENCOUNTER 2018-04-10 09:47 | Inpatient (IN) | payer OTHER ==
[2018-04-10] VITALS (10 sets, daily range): BP systolic 107–143; BP diastolic 47–84
[~2018-04-10] VITALS: Ht 182.9 cm; Wt 127.9 kg
[~2018-04-10 09:47] MED LIST changes: +CIPR250T30 PO; +PHEN-444 PO
--- NOTE | 2018-04-10 12:50 | PDOC1 ---
History and Physical Date of Admission Date of Admission DATE: 04/10/18 TIME: 12:49 Past Medical History Past Medical History Past Medical History: Anxiety, Depression, Schizophrenia, Other Additional Past Medical Histor: foreign bodies in penis Past Surgical History: Other Additional Past Surgical Histo: PENILE SURGERY Alcohol Use: None Drug Use: None family hx obesity Cardiovascular: No pertinent hx Pulmonary: No pertinent hx Psych: Bipolar, Depression, Other Past Surgical History Past Surgical History: Cystoscopy, Other Family History Family History: No Significant, High Cholestrol Family History: Other Social History Smoke: No ALCOHOL: none Drugs: None Current Problem List Problem List Problems Medical Problems: (1) Foreign body in urethra, initial encounter Status: Acute (2) Urinary tract infection Status: Acute Current Medications Current Medications Active Scripts Active Reported Depakote Er (Divalproex Sodium) 250 Mg Tab.er.24h 250 Mg PO DAILY Bactrim Ds Tablet (Sulfamethoxazole/Trimethoprim) 1 Each Tablet 1 Each PO BID Zoloft (Sertraline Hcl) 25 Mg Tablet 1 Tab PO HS Tylenol (Acetaminophen) 325 Mg Tablet 2 Tab PO Q6HRS PRN Ibuprofen 400 Mg Tablet 400 Mg PO PRN Q6HRS PRN Effexor Xr (Venlafaxine Hcl) 75 Mg Cap.er.24h 225 Mg PO DAILY Zyprexa (Olanzapine) 20 Mg Tablet 20 Mg PO HS Vistaril (Hydroxyzine Pamoate) 25 Mg Capsule 1 Cap PO DAILY08 Anti-Dandruff ([place]) 251 Ml Shampoo 251 Ml TP TWICE WEEKLY Anti-Dandruff ([place]) 251 Ml Shampoo 251 Ml TP Allergies Allergies: Coded Allergies: Penicillins (Verified Allergy, Intermediate, HIVES, 10/10/17) amoxicillin (Verified Allergy, Intermediate, HIVES, 10/10/17) I S O L A T I O N *CONTACT* (Verified Allergy, Unknown, 10/10/17) mrsa ROS Review of System Review of Systems Review of Systems Constitutional: fever , chills [] Eyes: Denies change in visual acuity, redness, or eye pain [] HENT: Denies nasal congestion or sore throat [] Respiratory: Denies cough or shortness of breath [] Cardiovascular: No additional information not addressed in HPI [] GI: Denies abdominal pain, nausea, vomiting, bloody stools or diarrhea [] : hematuria [] Musculoskeletal: Denies back pain or joint pain [] Integument: Denies rash or skin lesions [] Neurologic: Denies headache, focal weakness or sensory changes [] Endocrine: Denies polyuria or polydipsia [] 14 pt systems were reviewed and found to be within normal limits, except as documented General: No: Chills, Night Sweats, Fatigue, Malaise, Appetite, Other Neurological: Yes Behavorial Changes Physical Exam Physical Exam Physical Exam Physical Exam Constitutional: Well developed, well nourished, no acute distress, non-toxic appearance. [] HENT: Normocephalic, atraumatic, bilateral external ears normal, oropharynx moist, no oral exudates, nose normal. [] Eyes: PERRLA, EOMI, conjunctiva normal, no discharge. [] Neck: Normal range of motion, no tenderness, supple, no stridor. [] Cardiovascular:Heart rate regular rhythm, no murmur [] Lungs & Thorax: Bilateral breath sounds clear to auscultation [] Abdomen: Bowel sounds normal, soft, no tenderness, no masses, no pulsatile masses. [] Skin: Warm, dry, no erythema, no rash. [] Back: No tenderness, no CVA tenderness. [] Extremities: No tenderness, no cyanosis, no clubbing, ROM intact, no edema. [] Neurologic: Alert and oriented X 3, normal motor function, normal sensory function, no focal deficits noted. [] Psychologic: Affect normal, judgement poor mood anxious [] General: Cooperative HEENT: Atraumatic, PERRLA Lungs: Clear to auscultation Heart: S1S2 Breasts: Not examined Abdomen: Normal bowel sounds, Soft Rectal Exam: not examined Extremities: No cyanosis Cardiovascular: No pertinent hx Pulmonary: No pertinent hx Psych: Anxiety, Addictions, Bipolar, Depression, Other ENT: No pertinent hx Renal/: Other Past Surgical History Past Surgical History: Cystoscopy, Other Family History Family History: No Significant, High Cholestrol Family History: Other Social History Smoke: No ALCOHOL: none Drugs: None Current Medications Current Medications Active Scripts Active Phenazopyridine Hcl 200 Mg Tablet 200 Mg PO PRN TID PRN 10 Days Cipro (Ciprofloxacin Hcl) 250 Mg Tablet 500 Mg PO BID 7 Days Reported Depakote Er (Divalproex Sodium) 250 Mg Tab.er.24h 250 Mg PO DAILY Zoloft (Sertraline Hcl) 25 Mg Tablet 1 Tab PO HS Tylenol (Acetaminophen) 325 Mg Tablet 2 Tab PO Q6HRS PRN Ibuprofen 400 Mg Tablet 400 Mg PO PRN Q6HRS PRN Effexor Xr (Venlafaxine Hcl) 75 Mg Cap.er.24h 225 Mg PO DAILY Zyprexa (Olanzapine) 20 Mg Tablet 20 Mg PO HS Vistaril (Hydroxyzine Pamoate) 25 Mg Capsule 1 Cap PO DAILY08 Anti-Dandruff ([place]) 251 Ml Shampoo 251 Ml TP TWICE WEEKLY Anti-Dandruff ([place]) 251 Ml Shampoo 251 Ml TP Allergies Allergies: Coded Allergies: Penicillins (Verified Allergy, Intermediate, HIVES, 10/10/17) amoxicillin (Verified Allergy, Intermediate, HIVES, 10/10/17) I S O L A T I O N *CONTACT* (Verified Allergy, Unknown, 10/10/17) mrsa ROS Review of System 14 pt ros otherwise neg General: YES: Chills, Fatigue PSYCHOLOGICAL ROS: YES: Anxiety, Behavioral Disorder Breast: No New/Changing Breast Lumps, No Nipple changes, No Nipple discharge, No Other Gastrointestinal: No Nausea, No Vomiting, No Abdominal Pain, No Diarrhea, No Constipation, No Melena, No Hematochezia, No Other Genitourinary: YES Dysuria, YES Hematuria, YES Urgency, YES Pain Musculoskeletal: No Gait Disturbance, No Joint Pain, No Joint Stiffness, No Joint Swelling, No Muscle Pain, No Muscular Weakness, No Pain In:, No Swelling In:, No Other Neurological: Yes Behavorial Changes VTE Prophylaxis Ordered VTE Prophylaxis Devices: No VTE Pharmacological Prophylaxi: Yes Assessment/Plan Assessment/Plan impression : Foreign body , self inflicted in urethra. fever sepsis prisoner schizophrenia depression plan admit blood and urine cultures urology consult npo iv levaquin scd[facility] home meds BALDOMERO BOND MD Apr 10, 2018 12:50
[2018-04-10] MEDS ORDERED: VANCOMYCIN PER PHARMACY MC PRN (13:00)
[2018-04-10] MEDS ORDERED: ACETAMINOPHEN 325 MG TABLET. PO PRN (13:00)
[2018-04-10] MEDS ORDERED: HYDROmorphone 2 MG/ML VIAL IV PRN (13:00)
[2018-04-10] MEDS ORDERED: MAG HYDROX/ALUMINUM HYD/SIMETH 30 ML ORAL.SUSP PO PRN (13:00)
[2018-04-10] MEDS ORDERED: ACETAMINOPHEN 650 MG SUPP.RECT. PR PRN (13:00)
[2018-04-10] MEDS ORDERED: diphenhydrAMINE 50 MG/ML VIAL IVP PRN (13:00)
[2018-04-10] MEDS ORDERED: LORazepam 0.5 MG TABLET PO PRN (13:00)
[2018-04-10] MEDS ORDERED: guaiFENesin ORAL 200 MG/10 ML LIQUID. PO PRN (13:00)
[2018-04-10] MEDS ORDERED: VANCOMYCIN 1 GM in IV DEXTROSE 5% 250 ML IV ONE (13:00)
[2018-04-10] MEDS ORDERED: SODIUM PHOSPHATES 19/7GM 133 ML ENEMA. PR PRN (13:00)
[2018-04-10] MEDS ORDERED: DOCUSATE SODIUM 100 MG CAPSULE. PO PRN (13:00)
[2018-04-10] MEDS ORDERED: ALBUTEROL SULFATE 2.5 MG/3 ML NEBU. NEB PRN (13:00)
[2018-04-10] MEDS ORDERED: ONDANSETRON PF 4 MG/2 ML VIAL. IV PRN (13:00)
[2018-04-10] MEDS ORDERED: SERT50TA PO (13:10)
[2018-04-10] MEDS ORDERED: DIVA-53 PO (13:10)
[2018-04-10] MEDS ORDERED: PHENAZOPYRIDINE 200 MG TABLET. PO PRN (13:15)
[2018-04-10 13:46] LABS: BASO % 0 % (0-3); EOS % 0 % (0-3); HEMATOCRIT 40.1 % (39.0-53.0); LYMPH # 0.3 x10^3/uL (1.0-4.8); LYMPH % 5 % (24-48); MEAN CORPUSCULAR HEMOGLOBIN 32 pg (25-35); MEAN CORPUSCULAR HGB CONC 35 g/dL (31-37); MEAN CORPUSCULAR VOLUME 90 fL (79-100); MONO % 0 % (0-9); NEUT # 6.7 x10^3uL (1.8-7.7); NEUT % 95 % (31-73); PLATELET COUNT 182 x10^3/uL (140-400); RED BLOOD COUNT 4.44 x10^6/uL (4.30-5.70); RED CELL DISTRIBUTION WIDTH 13.3 % (11.5-14.5); WHITE BLOOD COUNT 7.1 x10^3/uL (4.0-11.0)
--- NOTE | 2018-04-10 13:53 | PDOC2 ---
AMAN SHEPHERD Audrey OVERLOCKER 04/10/18 1353: UROLOGY CONSULT Date of Consult Date of Consult DATE: 04/10/18 TIME: 13:42 Reason for Consult Reason for Consult: Foreign body in urethra Referring Physician Referring Physician: Franklin Identification/Chief Complaint Chief Complaint Foregin body in urethra Source Source: Caregiver, Chart review, Patient History of Present Illness Reason for Visit: This 22 year old male is known to us. He suffers from psychiatric problems to include voices that tell him to insert objects into his urethra. This is about the 10th time he has done this. This time he inserted a toothbrush, paper and a piece of a spoon. He did this last Monday. He has been having dysuria since then but yesterday he became very sick, having abd pain, nausea and vomiting and just feeling terrible all over. Past Medical History Cardiovascular: No pertinent hx Pulmonary: No pertinent hx Psych: Anxiety, Addictions, Bipolar, Depression, Other ENT: No pertinent hx Renal/: Other Past Surgical History Past Surgical History: Cystoscopy, Other Family History Family History: No Significant, High Cholestrol Social History Social History: Other No ALCOHOL: none Drugs: None Current Problem List Problems: (1) Foreign body in penis (2) Urethral foreign body Current Medications Current Medications Current Medications Acetaminophen (Tylenol Supp) 650 mg PRN Q4HRS PRN AK TEMP OVER 100.4F OR MILD PAIN; Start 04/10/18 at 13:00 Acetaminophen (Tylenol) 650 mg Q6HRS PRN PO PAIN; Start 04/10/18 at 13:00 Al Hydroxide/Mg Hydroxide (Mylanta Plus Xs) 30 ml PRN DAILY PRN PO HEARTBURN / GAS; Start 04/10/18 at 13:00 Albuterol Sulfate (Ventolin Neb Soln) 2.5 mg PRN Q4HRS PRN NEB SHORTNESS OF BREATH; Start 04/10/18 at 13:00 Diphenhydramine HCl (Benadryl) 25 mg PRN Q4HRS PRN IVP ITCHING; Start 04/10/18 at 13:00 Divalproex Sodium (Depakote Er) 250 mg DAILY PO ; Start 04/11/18 at 09:00; Status Cancel Divalproex Sodium (Depakote) 1,000 mg QHS PO ; Start 04/10/18 at 21:00 Docusate Sodium (Colace) 100 mg PRN BID PRN PO CONSTIPATION; Start 04/10/18 at 13:00 Guaifenesin (Robitussin) 200 mg PRN Q4HRS PRN PO COUGH; Start 04/10/18 at 13:00 Hydromorphone HCl (Dilaudid) 1 mg PRN Q2HRS PRN IV SEVERE PAIN; Start 04/10/18 at 13:00 Hydroxyzine Pamoate (Vistaril) 50 mg DAILY08 PO ; Start 04/11/18 at 08:00 Levofloxacin/ Dextrose 100 ml @ 100 mls/hr Q24H IV ; Start 04/10/18 at 13:15; Status UNV Levofloxacin/ Dextrose 150 ml @ 100 mls/hr Q24H IV ; Start 04/10/18 at 14:00 Lorazepam (Ativan) 0.5 mg PRN Q4HRS PRN PO ANXIETY / AGITATION; Start 04/10/18 at 13:00 Olanzapine (ZyPREXA) 20 mg QHS PO ; Start 04/10/18 at 21:00 Ondansetron HCl (Zofran) 4 mg PRN Q4HRS PRN IV NAUSEA/VOMITING; Start 04/10/18 at 13:00 Phenazopyridine HCl (Pyridium) 200 mg PRN TID PRN PO URINARY PAIN; Start at 13:15; Status Cancel Sertraline HCl (Zoloft) 50 mg QHS PO ; Start 04/10/18 at 21:00 Sodium Monofluorophosphate (Fleet Adult) 133 ml PRN DAILY PRN [place] CONSTIPATION; Start 04/10/18 at 13:00 Sodium Chloride 1,000 ml @ 100 mls/hr Q10H IV ; Start 04/10/18 at 12:58 Vancomycin HCl (Vanco Per Pharmacy) 1 each PRN DAILY PRN MC SEE COMMENTS; Start 04/10/18 at 13:00 Vancomycin HCl 1 gm/Dextrose 250 ml @ 250 mls/hr 1X ONCE IV ; Start 04/10/18 at 13:00; Stop 04/10/18 at 13:59; Status UNV Vancomycin HCl 2 gm/Sodium Chloride 500 ml @ 250 mls/hr 1X ONCE IV ; Start at 14:00; Stop 9/25/18 at 15:59 Venlafaxine HCl (Effexor) 75 mg TID PO ; Start 04/10/18 at 14:00 Allergies Allergies: Coded Allergies: Penicillins (Verified Allergy, Intermediate, HIVES, 10/10/17) amoxicillin (Verified Allergy, Intermediate, HIVES, 10/10/17) I S O L A T I O N *CONTACT* (Verified Allergy, Unknown, 10/10/17) mrsa ROS Review Of Systems: CONSTITUTIONAL: No fever or chills EYES: No recent changes SKIN: No rash or itching CARDIOVASCULAR: No chest pain, syncope, palpitations, or edema RESPIRATORY: No SOB or cough GASTROINTESTINAL: + nausea, vomiting + abdominal pain NEUROLOGICAL: No headaches or weakness ENDOCRINE: No cold or heat intolerance GENITOURINARY: + dysuria, pus, blood from meatus. MUSCULOSKELETAL: No back pain or joint pain LYMPHATICS: No enlarged lymph nodes PSYCHIATRIC: + psych issues, hears voices. Physical Exam Physical Exam: General: Pleasant, no acute distress, well groomed Eyes: conjunctiva anicteric, eyes full range of motion ENT: moist oral mucosa, normal dentition Neck: Trachea midline, no masses Respiratory: unlabored breathing, not using accessory muscles, Back: No CVA pain bilaterally Abdomen: tender over bladder and bilateral lower quadrants Pelvic: urethral meatus torn with blood and pus. Plastic objects are palpable posterior to the scrotum. No scrotal swelling Skin: no rashes or skin lesions on visualized skin Psych: normal mood, affect. Alert and oriented x 3. Vitals VITALS Vital Signs Date Time Temp Pulse Resp B/P (MAP) Pulse Ox O2 Delivery O2 Flow Rate FiO2 04/10/18 13:33 102.6 136 20 107/47 (67) 96 Room Air 102.6 Assessment/Plan Assessment/Plan Urethral foreign body-worse than past presentations. Surgeon will try to remove object via cysto. However, due to location and severity of self injury he may have to open the bladder for removal. Also possible he may have to make an incision into the urethra posterior to the scrotum for removal. Discussed with patient and he verbalizes understanding. Antibiotics already ordered per medical team. Assessed patient with surgeon in room. We do not have psych services available at this facility. Given patient's history of self mutilation via insertion of foreign bodies into penis, recommend that the next time he does this he is sent to where he can get a psychiatric assessment and workup in addition to appropriate urology care. I have discussed this with Dr. Boyd and he is in agreement. Discussed with guards present at bedside and written on prisoner consultation report. Will follow while in house. LEENA BOYD MD 04/10/18 1540: UROLOGY CONSULT Assessment/Plan Assessment/Plan 22 yo incarcerated M with mental health issue and h/o instrumenting his urethral who presents today with multiple foreign objects stuck in his urethra for 1 week. Notes severe penile pain, bloody drainage, and fevers. Discussed need to operative intervention today with cystoscopy and possible open extraction today. We reviewed the risks and SEs. He is senting to the procedure. Needs mental health referral. AMAN SHEPHERD APRN Apr 10, 2018 13:53 LEENA BOYD MD Apr 10, 2018 15:40
[2018-04-10] MEDS: IV NORMAL SALINE 1000ML BAG 1,000 ML IV SCH (13:56)
[2018-04-10 13:58] LABS: ALBUMIN 3.2 g/dL (3.4-5.0); ALBUMIN/GLOBULIN RATIO 0.8 (1.0-1.7); GFR 91.8; POTASSIUM 3.2 mmol/L (3.5-5.1); TOTAL BILIRUBIN 1.6 mg/dL (0.2-1.0); TOTAL PROTEIN 7.4 g/dL (6.4-8.2)
[2018-04-10] MEDS: VENLAFAXINE 75 MG TABLET. PO SCH ×2 (14:00→21:36)
[2018-04-10] MEDS ORDERED: VANCOMYCIN 2 GM in IV NORMAL SALINE 500ML BAG 500 ML IV ONE (14:00)
[2018-04-10 14:16] LABS: % BANDS 30 % (0-9); % LYMPHS 5 % (24-48); % SEGS 65 % (35-66); PLT ESTIMATE ADEQUATE (ADEQUATE)
[2018-04-10] MEDS ORDERED: SEVOFLURANE 61 TO 120 MINUTES. IH ONE (14:51)
[2018-04-10] MEDS ORDERED: DEXAMETHASONE SOD PHOS 20 MG/5 ML VIAL. ONE (14:51)
[2018-04-10] MEDS ORDERED: PROPOFOL 20 ML IV ONE (14:51)
--- NOTE | 2018-04-10 15:03 | RAD ---
Portable chest, 04/10/2018: HISTORY: Fever The heart size and pulmonary vascularity are normal. No pulmonary infiltrate is seen. There is no evidence of pleural fluid. IMPRESSION: No acute cardiopulmonary abnormality is detected. Electronically signed by: Alfred Jaramillo MD (04/10/2018 3:00 PM) [facility]
--- NOTE | 2018-04-10 16:33 | PDOC ---
BRIEF OPERATIVE NOTE Pre-Op Diagnosis urethral foreign body, UTI Post-Op Diagnosis same Procedure Performed EUA, extraction of foreign body, cystoscopy Surgeon Herre Automated Cutting Machine Operator None Anesthesia Type: General Blood Loss <5 cc Specimens Obtained Foreign body x 4 Findings As dictated Complications None Operative Note Dictation # [id number] LEENA BOYD MD Apr 10, 2018 16:33
[2018-04-10] MEDS: CEFEPIME HCL IV Push 1 GM VIAL. IVP SCH ×2 (18:12→21:37)
[2018-04-10] MEDS ORDERED: C.DIFF MED SCREEN BY RX. MC ONE (18:30)
[2018-04-10] MEDS ORDERED: INFLUENZA VAX SCREEN BY RX. MC ONE (18:30)
--- NOTE | 2018-04-10 18:45 | OP ---
DATE OF SURGERY: 04/10/2018 PREOPERATIVE DIAGNOSES: 1. Foreign body in the urethra. 2. Urinary tract infection. POSTOPERATIVE DIAGNOSES: 1. Foreign body in the urethra. 2. Urinary tract infection. PROCEDURES PERFORMED: 1. Exam under anesthesia and removal of foreign body. 2. Cystoscopy. ANESTHESIA: General. COMPLICATIONS: None. ESTIMATED BLOOD LOSS: Less than 5 mL INDICATIONS FOR PROCEDURE: The patient is a 22-year-old male with a history of placing foreign objects in his urethra. He presents today with additional objects placed in his urethra approximately 1-1/2 weeks ago. He presents for the above mentioned procedures. DESCRIPTION OF PROCEDURE: The patient was met in the preoperative holding area where his procedure, risks, benefits, alternatives were reviewed in detail. Informed consent was obtained. He was brought back to the operating room and placed supine on the operating table. A timeout was called, identifying the correct patient, procedure, preoperative antibiotics. All members of surgical team were in agreement. General anesthesia was induced, and he was repositioned into dorsal lithotomy, prepped and draped in sterile fashion. A curved hemostat was then placed atraumatically through his meatus approximately 3 cm until I was able to grasp the hard cylindrical object I was palpating through his skin. This was removed in its entirety and was a white piece of plastic that according to the chef saucier who was present as part of a half-way-issued toothbrush. I was then able to milk additional objects from more proximally up to the distal urethra where I was able to grasp and extract all of these. We identified a rim of a top of butter as well as 2 rolled up pieces of cardboard. I then performed cystoscopy noting a tear in the mid pendulous urethra. There was some pale tissue consistent with scarring in the distal bulbar urethra. Complete cystoscopy was performed identifying orthotopic ureteral orifices. There was much debris and the mucosa of the bladder was very hypervascular. There were no mucosal lesions or stones. The bladder was emptied and the scope was removed under direct vision. Given the tear in the urethra, a 16-Kosovan catheter was placed. The balloon was inflated with 10 mL of sterile water. The patient can have a voiding trial once discharged at the half-way on Monday. The patient was then awoken and transferred to the PACU in stable condition having tolerated the procedure well. LEENA BOYD MD DR: Alaina JOB#: [id number] / [id number]
[2018-04-10 19:34] LABS: BILIRUBIN,URINE NEGATIVE (NEG); CLARITY,URINE CLEAR; COLOR,URINE YELLOW; NITRITE,URINE NEGATIVE (NEG); PROTEIN,URINE NEGATIVE (NEG-TRACE); UROBILINOGEN,URINE 0.2 mg/dL (0.2 mg/dL)
[2018-04-10 19:54] LABS: BACTERIA,URINE FEW /HPF (0-FEW)
[2018-04-10] MEDS: SERTRALINE 50 MG TABLET. PO SCH (21:35)
[2018-04-10] MEDS: DIVALPROEX DELAYED RELEASE 500 MG TABLET.DR. PO SCH (21:36)
[2018-04-10] MEDS: LACTOBACILLUS RHAMNOSUS GG 1 CAPSULE. PO SCH (21:36)
[2018-04-10] MEDS: OLANZapine 5 MG TABLET PO SCH (21:37)
[2018-04-10] MEDS: VANCOMYCIN 1.5 GM in IV NORMAL SALINE 500ML BAG 500 ML IV SCH (23:18)
[2018-04-11 03:00] VITALS: BP 112/62
[2018-04-11] MEDS: CEFEPIME HCL IV Push 1 GM VIAL. IVP SCH ×3 (05:32→21:10)
[2018-04-11] MEDS: IV NORMAL SALINE 1000ML BAG 1,000 ML IV SCH ×2 (05:33→15:44)
[2018-04-11 07:00] VITALS: BP 123/52
[2018-04-11] MEDS: VANCOMYCIN 1.5 GM in IV NORMAL SALINE 500ML BAG 500 ML IV SCH (07:30)
--- NOTE | 2018-04-11 08:42 | PDOC ---
SUBJECTIVE Subjective Pt resting comfortably. Amos catheter is not bothering him. Prisoner does not want it out just yet if possible OBJECTIVE Objective Physical Exam: General appearance: Alert and Oriented Head: Normocephalic, without obvious abnormality Eyes: conjunctivae/corneas clear. PERRL, EOM's intact. Fundi benign Lungs: regular respirations, non labored breathing. Pelvic: amos catheter in place draining clear yellow urine. Urethral meatus has a scant amount of blood and pus present. Device in good working order Vital Signs Vital Signs Date Time Temp Pulse Resp B/P (MAP) Pulse Ox O2 Delivery O2 Flow Rate FiO2 04/11/18 08:20 100 Room Air 04/11/18 03:00 99.1 108 17 112/62 (79) 95 Room Air 99.1 04/10/18 23:00 101.5 110 17 143/84 (103) 95 Room Air 101.5 04/10/18 21:00 99.1 104 17 121/54 (76) 98 Room Air 99.1 04/10/18 20:04 Room Air 04/10/18 20:00 99.1 108 17 112/62 (79) 95 Room Air 99.1 04/10/18 19:30 99.1 104 17 121/54 (76) 98 Room Air 99.1 04/10/18 19:00 100.0 114 17 133/68 (89) 97 Room Air 100.0 04/10/18 18:42 106 113/60 (77) 04/10/18 18:27 117 125/70 (88) 04/10/18 18:13 115 117/67 (84) 95 04/10/18 17:57 113 115/62 (79) 95 04/10/18 17:19 98.5 119 20 130/75 99 Room Air 98.5 04/10/18 17:04 118 20 126/78 99 Room Air 04/10/18 16:49 120 20 125/67 99 Room Air 04/10/18 16:34 101.2 118 20 126/75 100 Simple Mask 10 101.2 04/10/18 15:01 98.4 155 24 106/52 94 Room Air 98.4 04/10/18 14:30 Room Air 04/10/18 14:00 Room Air 04/10/18 14:00 Room Air 04/10/18 13:33 102.6 136 20 107/47 (67) 96 Room Air 102.6 I & O Intake and Output 04/11/18 07:00 Intake Total 3900 ml Output Total 4200 ml Balance -300 ml Intake Oral 2250 ml IV Total 1650 ml Output Urine Total 4200 ml PHYSICAL EXAM Physical Exam Physical Exam: General appearance: Alert and Oriented Head: Normocephalic, without obvious abnormality Eyes: conjunctivae/corneas clear. PERRL, EOM's intact. Fundi benign Lungs: regular respirations, non labored breathing. Pelvic: amos catheter in place draining clear yellow urine. Urethral meatus has a scant amount of blood and pus present. Device in good working order ASSESSMENT/PLAN Assessment/Plan Patient is S/POD #1 foreign body removal from urethra per Dr. Barbour of [facility] [place] on 04/10/18 Febrile overnight, continue antibiotics. Nursing staff to maintain amos catheter. Plan is for voiding trial this Monday. If he discharges prior to then, he may have the voiding trial at the [facility]. Gave patient a copy of opp report for him to read. Advised him to stop inserting foreign objects into his urethra. Discussed with guards that psych services are not available here. The next time he does this, he needs to go to where he can get appropriate psychiatric care in addition to urology services. This was also written on group home communication form. Antibiotics per medical team/ID Pyridium TID scheduled for three days for patient comfort. Will follow while in house. Problems: (1) Urethral foreign body (2) Foreign body in penis COMMENT Lab Laboratory Tests Test 04/10/18 13:15 04/10/18 18:45 White Blood Count 7.1 x10^3/uL (4.0-11.0) Red Blood Count 4.44 x10^6/uL (4.30-5.70) Hemoglobin 14.0 g/dL (13.0-17.5) Hematocrit 40.1 % (39.0-53.0) Mean Corpuscular Volume 90 fL (79-100) Mean Corpuscular Hemoglobin 32 pg (25-35) Mean Corpuscular Hemoglobin Concent 35 g/dL (31-37) Red Cell Distribution Width 13.3 % (11.5-14.5) Platelet Count 182 x10^3/uL (140-400) Neutrophils (%) (Auto) 95 % (31-73) Lymphocytes (%) (Auto) 5 % (24-48) Monocytes (%) (Auto) 0 % (0-9) Eosinophils (%) (Auto) 0 % (0-3) Basophils (%) (Auto) 0 % (0-3) Neutrophils # (Auto) 6.7 x10^3uL (1.8-7.7) Lymphocytes # (Auto) 0.3 x10^3/uL (1.0-4.8) Monocytes # (Auto) 0.0 x10^3/uL (0.0-1.1) Eosinophils # (Auto) 0.0 x10^3/uL (0.0-0.7) Basophils # (Auto) 0.0 x10^3/uL (0.0-0.2) Segmented Neutrophils % 65 % (35-66) Band Neutrophils % 30 % (0-9) Lymphocytes % 5 % (24-48) Platelet Estimate Adequate (ADEQUATE) Sodium Level 137 mmol/L (136-145) Potassium Level 3.2 mmol/L (3.5-5.1) Chloride Level 103 mmol/L (98-107) Carbon Dioxide Level 27 mmol/L (21-32) Anion Gap 7 (6-14) Blood Urea Nitrogen 15 mg/dL (8-26) Creatinine 1.0 mg/dL (0.7-1.3) Estimated GFR (Cockcroft-Gault) 91.8 BUN/Creatinine Ratio 15 (6-20) Glucose Level 107 mg/dL (70-99) Calcium Level 9.0 mg/dL (8.5-10.1) Total Bilirubin 1.6 mg/dL (0.2-1.0) Aspartate Amino Transf (AST/SGOT) 18 U/L (15-37) Alanine Aminotransferase (ALT/SGPT) 22 U/L (16-63) Alkaline Phosphatase 78 U/L (46-116) Total Protein 7.4 g/dL (6.4-8.2) Albumin 3.2 g/dL (3.4-5.0) Albumin/Globulin Ratio 0.8 (1.0-1.7) Urine Collection Type Unknown Urine Color Yellow Urine Clarity Clear Urine pH 6.0 Urine Specific [place] 1.010 Urine Protein Negative mg/dL (NEG-TRACE) Urine Glucose (UA) Negative mg/dL (NEG) Urine Ketones (Stick) Negative mg/dL (NEG) Urine Blood Large (NEG) Urine Nitrite Negative (NEG) Urine Bilirubin Negative (NEG) Urine Urobilinogen Dipstick 0.2 mg/dL (0.2 mg/dL) Urine Leukocyte Esterase Moderate (NEG) Urine RBC 1-2 /HPF (0-2) Urine WBC 11-20 /HPF (0-4) Urine Bacteria Few /HPF (0-FEW) Urine Mucus Mod /LPF AMAN SHEPHERD APRN Apr 11, 2018 08:42
[2018-04-11] MEDS ORDERED: DIVALPROEX EXTENDED RELEASE 250 MG TAB.ER.24H. PO SCH (09:00)
[2018-04-11] MEDS: VENLAFAXINE 75 MG TABLET. PO SCH ×4 (09:06→21:08)
[2018-04-11] MEDS: hydrOXYzine PAMOATE 25 MG CAPSULE PO SCH (09:06)
[2018-04-11] MEDS: LACTOBACILLUS RHAMNOSUS GG 1 CAPSULE. PO SCH ×2 (09:06→21:08)
--- NOTE | 2018-04-11 09:17 | PDOC ---
Infectious Disease Note Vital Sign Vital Signs Vital Signs Date Time Temp Pulse Resp B/P (MAP) Pulse Ox O2 Delivery O2 Flow Rate FiO2 04/11/18 08:20 100 Room Air 04/11/18 03:00 99.1 108 17 112/62 (79) 99.1 04/10/18 16:34 10 Labs Lab Laboratory Tests Test 04/10/18 13:15 04/10/18 18:45 White Blood Count 7.1 x10^3/uL (4.0-11.0) Red Blood Count 4.44 x10^6/uL (4.30-5.70) Hemoglobin 14.0 g/dL (13.0-17.5) Hematocrit 40.1 % (39.0-53.0) Mean Corpuscular Volume 90 fL (79-100) Mean Corpuscular Hemoglobin 32 pg (25-35) Mean Corpuscular Hemoglobin Concent 35 g/dL (31-37) Red Cell Distribution Width 13.3 % (11.5-14.5) Platelet Count 182 x10^3/uL (140-400) Neutrophils (%) (Auto) 95 % (31-73) Lymphocytes (%) (Auto) 5 % (24-48) Monocytes (%) (Auto) 0 % (0-9) Eosinophils (%) (Auto) 0 % (0-3) Basophils (%) (Auto) 0 % (0-3) Neutrophils # (Auto) 6.7 x10^3uL (1.8-7.7) Lymphocytes # (Auto) 0.3 x10^3/uL (1.0-4.8) Monocytes # (Auto) 0.0 x10^3/uL (0.0-1.1) Eosinophils # (Auto) 0.0 x10^3/uL (0.0-0.7) Basophils # (Auto) 0.0 x10^3/uL (0.0-0.2) Segmented Neutrophils % 65 % (35-66) Band Neutrophils % 30 % (0-9) Lymphocytes % 5 % (24-48) Platelet Estimate Adequate (ADEQUATE) Sodium Level 137 mmol/L (136-145) Potassium Level 3.2 mmol/L (3.5-5.1) Chloride Level 103 mmol/L (98-107) Carbon Dioxide Level 27 mmol/L (21-32) Anion Gap 7 (6-14) Blood Urea Nitrogen 15 mg/dL (8-26) Creatinine 1.0 mg/dL (0.7-1.3) Estimated GFR (Cockcroft-Gault) 91.8 BUN/Creatinine Ratio 15 (6-20) Glucose Level 107 mg/dL (70-99) Calcium Level 9.0 mg/dL (8.5-10.1) Total Bilirubin 1.6 mg/dL (0.2-1.0) Aspartate Amino Transf (AST/SGOT) 18 U/L (15-37) Alanine Aminotransferase (ALT/SGPT) 22 U/L (16-63) Alkaline Phosphatase 78 U/L (46-116) Total Protein 7.4 g/dL (6.4-8.2) Albumin 3.2 g/dL (3.4-5.0) Albumin/Globulin Ratio 0.8 (1.0-1.7) Urine Collection Type Unknown Urine Color Yellow Urine Clarity Clear Urine pH 6.0 Urine Specific [place] 1.010 Urine Protein Negative mg/dL (NEG-TRACE) Urine Glucose (UA) Negative mg/dL (NEG) Urine Ketones (Stick) Negative mg/dL (NEG) Urine Blood Large (NEG) Urine Nitrite Negative (NEG) Urine Bilirubin Negative (NEG) Urine Urobilinogen Dipstick 0.2 mg/dL (0.2 mg/dL) Urine Leukocyte Esterase Moderate (NEG) Urine RBC 1-2 /HPF (0-2) Urine WBC 11-20 /HPF (0-4) Urine Bacteria Few /HPF (0-FEW) Urine Mucus Mod /LPF Micro Microbiology 04/10/18 Blood Culture - Final, Complete Objective Assessment Fever GNR sepsis - POA 04/10 Foreign body in penis s/p procedure 925 Bandemia h/o Ecoli res to quinolones h/o MRSA + screen PCN allergy - has tolerated Cephalosporins Plan Plan of Care Given previous cults and his tolerating Rocephin in the past I began Cefepime and d/c'd Levoflox 04/10 via pharmacy Will D/c Vanc F/u labs and cults Expect WBC increase with Dexamethasone Thank you # [id number] TERESA CRUMP MD Apr 11, 2018 09:17
--- NOTE | 2018-04-11 09:54 | PDOC ---
PROGRESS NOTES History of Present Illness History of Present Illness Assessment/Plan Assessment/Plan impression : Foreign body , self inflicted in urethra. fever sepsis BACTEREMIA prisoner schizophrenia, Disorganized depression obesity plan psych consult at facility IV CEFIPIME blood and urine cultures urology following npo iv levaquin D/C scd's home meds Vitals Vitals Vital Signs Date Time Temp Pulse Resp B/P (MAP) Pulse Ox O2 Delivery O2 Flow Rate FiO2 04/11/18 08:20 100 Room Air 04/11/18 07:00 98.1 81 18 123/52 (75) 98.1 04/10/18 16:34 10 Physical Exam General: Alert, Oriented X3, Cooperative, mild distress Heart: Regular rate, Normal S1, Normal S2 Lungs: Clear Abdomen: Normal bowel sounds, Soft Extremities: No cyanosis Labs LABS PATIENT: MARY JO LEWIS ACCT: [id number] LOC: [address] [place] [address] U : [id number] AGE/SX: 22/M ROOM: [facility] REG : 04/10/[address]: BALDOMERO BOND MD : 1995 BED: 1 DIS : STATUS: ADM IN TLOC: SPEC #: [id number] JIL: 04/10/18-1315 STATUS: COMP REQ #: [id number] RECD: 04/10/18-[address]: BALDOMERO BOND MD SOURCE: BLOOD ENTR: 04/10/18-[address] [facility] [address]: ADDISON GONZALEZ MD [facility]: TERESA CRUMP MD NO PCP ORDERED: BCULT Procedure Result BLOOD CULTURE Final GRAM NEGATIVE RODS IN 1 OF 3 BOTTLES(AEROBIC);REPRESENTING 2 SETS DRAWN. THE RESULT WAS CALLED TO DAVID WALTER)ON 04/11/18 AT 0846 BY Carri LINO. [facility] Laboratory Tests Test 04/10/18 13:15 04/10/18 18:45 White Blood Count 7.1 x10^3/uL (4.0-11.0) Red Blood Count 4.44 x10^6/uL (4.30-5.70) Hemoglobin 14.0 g/dL (13.0-17.5) Hematocrit 40.1 % (39.0-53.0) Mean Corpuscular Volume 90 fL (79-100) Mean Corpuscular Hemoglobin 32 pg (25-35) Mean Corpuscular Hemoglobin Concent 35 g/dL (31-37) Red Cell Distribution Width 13.3 % (11.5-14.5) Platelet Count 182 x10^3/uL (140-400) Neutrophils (%) (Auto) 95 % (31-73) Lymphocytes (%) (Auto) 5 % (24-48) Monocytes (%) (Auto) 0 % (0-9) Eosinophils (%) (Auto) 0 % (0-3) Basophils (%) (Auto) 0 % (0-3) Neutrophils # (Auto) 6.7 x10^3uL (1.8-7.7) Lymphocytes # (Auto) 0.3 x10^3/uL (1.0-4.8) Monocytes # (Auto) 0.0 x10^3/uL (0.0-1.1) Eosinophils # (Auto) 0.0 x10^3/uL (0.0-0.7) Basophils # (Auto) 0.0 x10^3/uL (0.0-0.2) Segmented Neutrophils % 65 % (35-66) Band Neutrophils % 30 % (0-9) Lymphocytes % 5 % (24-48) Platelet Estimate Adequate (ADEQUATE) Sodium Level 137 mmol/L (136-145) Potassium Level 3.2 mmol/L (3.5-5.1) Chloride Level 103 mmol/L (98-107) Carbon Dioxide Level 27 mmol/L (21-32) Anion Gap 7 (6-14) Blood Urea Nitrogen 15 mg/dL (8-26) Creatinine 1.0 mg/dL (0.7-1.3) Estimated GFR (Cockcroft-Gault) 91.8 BUN/Creatinine Ratio 15 (6-20) Glucose Level 107 mg/dL (70-99) Calcium Level 9.0 mg/dL (8.5-10.1) Total Bilirubin 1.6 mg/dL (0.2-1.0) Aspartate Amino Transf (AST/SGOT) 18 U/L (15-37) Alanine Aminotransferase (ALT/SGPT) 22 U/L (16-63) Alkaline Phosphatase 78 U/L (46-116) Total Protein 7.4 g/dL (6.4-8.2) Albumin 3.2 g/dL (3.4-5.0) Albumin/Globulin Ratio 0.8 (1.0-1.7) Urine Collection Type Unknown Urine Color Yellow Urine Clarity Clear Urine pH 6.0 Urine Specific Catarina 1.010 Urine Protein Negative mg/dL (NEG-TRACE) Urine Glucose (UA) Negative mg/dL (NEG) Urine Ketones (Stick) Negative mg/dL (NEG) Urine Blood Large (NEG) Urine Nitrite Negative (NEG) Urine Bilirubin Negative (NEG) Urine Urobilinogen Dipstick 0.2 mg/dL (0.2 mg/dL) Urine Leukocyte Esterase Moderate (NEG) Urine RBC 1-2 /HPF (0-2) Urine WBC 11-20 /HPF (0-4) Urine Bacteria Few /HPF (0-FEW) Urine Mucus Mod /LPF Comment Review of Relevant I have reviewed the following items salvador (where applicable) has been applied. Labs Laboratory Tests Test 04/10/18 13:15 04/10/18 18:45 White Blood Count 7.1 x10^3/uL (4.0-11.0) Red Blood Count 4.44 x10^6/uL (4.30-5.70) Hemoglobin 14.0 g/dL (13.0-17.5) Hematocrit 40.1 % (39.0-53.0) Mean Corpuscular Volume 90 fL (79-100) Mean Corpuscular Hemoglobin 32 pg (25-35) Mean Corpuscular Hemoglobin Concent 35 g/dL (31-37) Red Cell Distribution Width 13.3 % (11.5-14.5) Platelet Count 182 x10^3/uL (140-400) Neutrophils (%) (Auto) 95 % (31-73) Lymphocytes (%) (Auto) 5 % (24-48) Monocytes (%) (Auto) 0 % (0-9) Eosinophils (%) (Auto) 0 % (0-3) Basophils (%) (Auto) 0 % (0-3) Neutrophils # (Auto) 6.7 x10^3uL (1.8-7.7) Lymphocytes # (Auto) 0.3 x10^3/uL (1.0-4.8) Monocytes # (Auto) 0.0 x10^3/uL (0.0-1.1) Eosinophils # (Auto) 0.0 x10^3/uL (0.0-0.7) Basophils # (Auto) 0.0 x10^3/uL (0.0-0.2) Segmented Neutrophils % 65 % (35-66) Band Neutrophils % 30 % (0-9) Lymphocytes % 5 % (24-48) Platelet Estimate Adequate (ADEQUATE) Sodium Level 137 mmol/L (136-145) Potassium Level 3.2 mmol/L (3.5-5.1) Chloride Level 103 mmol/L (98-107) Carbon Dioxide Level 27 mmol/L (21-32) Anion Gap 7 (6-14) Blood Urea Nitrogen 15 mg/dL (8-26) Creatinine 1.0 mg/dL (0.7-1.3) Estimated GFR (Cockcroft-Gault) 91.8 BUN/Creatinine Ratio 15 (6-20) Glucose Level 107 mg/dL (70-99) Calcium Level 9.0 mg/dL (8.5-10.1) Total Bilirubin 1.6 mg/dL (0.2-1.0) Aspartate Amino Transf (AST/SGOT) 18 U/L (15-37) Alanine Aminotransferase (ALT/SGPT) 22 U/L (16-63) Alkaline Phosphatase 78 U/L (46-116) Total Protein 7.4 g/dL (6.4-8.2) Albumin 3.2 g/dL (3.4-5.0) Albumin/Globulin Ratio 0.8 (1.0-1.7) Urine Collection Type Unknown Urine Color Yellow Urine Clarity Clear Urine pH 6.0 Urine Specific Catarina 1.010 Urine Protein Negative mg/dL (NEG-TRACE) Urine Glucose (UA) Negative mg/dL (NEG) Urine Ketones (Stick) Negative mg/dL (NEG) Urine Blood Large (NEG) Urine Nitrite Negative (NEG) Urine Bilirubin Negative (NEG) Urine Urobilinogen Dipstick 0.2 mg/dL (0.2 mg/dL) Urine Leukocyte Esterase Moderate (NEG) Urine RBC 1-2 /HPF (0-2) Urine WBC 11-20 /HPF (0-4) Urine Bacteria Few /HPF (0-FEW) Urine Mucus Mod /LPF Laboratory Tests Test 04/10/18 13:15 04/10/18 18:45 White Blood Count 7.1 x10^3/uL (4.0-11.0) Red Blood Count 4.44 x10^6/uL (4.30-5.70) Hemoglobin 14.0 g/dL (13.0-17.5) Hematocrit 40.1 % (39.0-53.0) Mean Corpuscular Volume 90 fL (79-100) Mean Corpuscular Hemoglobin 32 pg (25-35) Mean Corpuscular Hemoglobin Concent 35 g/dL (31-37) Red Cell Distribution Width 13.3 % (11.5-14.5) Platelet Count 182 x10^3/uL (140-400) Neutrophils (%) (Auto) 95 % (31-73) Lymphocytes (%) (Auto) 5 % (24-48) Monocytes (%) (Auto) 0 % (0-9) Eosinophils (%) (Auto) 0 % (0-3) Basophils (%) (Auto) 0 % (0-3) Neutrophils # (Auto) 6.7 x10^3uL (1.8-7.7) Lymphocytes # (Auto) 0.3 x10^3/uL (1.0-4.8) Monocytes # (Auto) 0.0 x10^3/uL (0.0-1.1) Eosinophils # (Auto) 0.0 x10^3/uL (0.0-0.7) Basophils # (Auto) 0.0 x10^3/uL (0.0-0.2) Segmented Neutrophils % 65 % (35-66) Band Neutrophils % 30 % (0-9) Lymphocytes % 5 % (24-48) Platelet Estimate Adequate (ADEQUATE) Sodium Level 137 mmol/L (136-145) Potassium Level 3.2 mmol/L (3.5-5.1) Chloride Level 103 mmol/L (98-107) Carbon Dioxide Level 27 mmol/L (21-32) Anion Gap 7 (6-14) Blood Urea Nitrogen 15 mg/dL (8-26) Creatinine 1.0 mg/dL (0.7-1.3) Estimated GFR (Cockcroft-Gault) 91.8 BUN/Creatinine Ratio 15 (6-20) Glucose Level 107 mg/dL (70-99) Calcium Level 9.0 mg/dL (8.5-10.1) Total Bilirubin 1.6 mg/dL (0.2-1.0) Aspartate Amino Transf (AST/SGOT) 18 U/L (15-37) Alanine Aminotransferase (ALT/SGPT) 22 U/L (16-63) Alkaline Phosphatase 78 U/L (46-116) Total Protein 7.4 g/dL (6.4-8.2) Albumin 3.2 g/dL (3.4-5.0) Albumin/Globulin Ratio 0.8 (1.0-1.7) Urine Collection Type Unknown Urine Color Yellow Urine Clarity Clear Urine pH 6.0 Urine Specific Catarina 1.010 Urine Protein Negative mg/dL (NEG-TRACE) Urine Glucose (UA) Negative mg/dL (NEG) Urine Ketones (Stick) Negative mg/dL (NEG) Urine Blood Large (NEG) Urine Nitrite Negative (NEG) Urine Bilirubin Negative (NEG) Urine Urobilinogen Dipstick 0.2 mg/dL (0.2 mg/dL) Urine Leukocyte Esterase Moderate (NEG) Urine RBC 1-2 /HPF (0-2) Urine WBC 11-20 /HPF (0-4) Urine Bacteria Few /HPF (0-FEW) Urine Mucus Mod /LPF Microbiology 04/10/18 Blood Culture - Final, Complete Medications Current Medications Acetaminophen (Tylenol) 650 mg Q6HRS PRN PO PAIN Last administered on 23:17; Start 04/10/18 at 13:00 Divalproex Sodium (Depakote Er) 250 mg DAILY PO ; Start 04/11/18 at 09:00; Status Cancel Hydroxyzine Pamoate (Vistaril) 50 mg DAILY08 PO Last administered on 04/11/18 09:06; Start 04/11/18 at 08:00 Olanzapine (ZyPREXA) 20 mg QHS PO Last administered on 04/10/18at 21:37; Start 04/10/18 at 21:00 Phenazopyridine HCl (Pyridium) 200 mg PRN TID PRN PO URINARY PAIN; Start at 13:15; Status Cancel Sertraline HCl (Zoloft) 50 mg QHS PO Last administered on 04/10/18at 21:35; Start 04/10/18 at 21:00 Venlafaxine HCl (Effexor) 75 mg TID PO Last administered on 04/11/18 09:06; Start 04/10/18 at 14:00 Sodium Chloride 1,000 ml @ 100 mls/hr Q10H IV Last administered on 04/11/18at 05:33; Start 04/10/18 at 12:58 Ondansetron HCl (Zofran) 4 mg PRN Q4HRS PRN IV NAUSEA/VOMITING Last administered on 04/10/18at 13:59; Start 04/10/18 at 13:00 Acetaminophen (Tylenol Supp) 650 mg PRN Q4HRS PRN MD TEMP OVER 100.4F OR MILD PAIN Last administered on 04/10/18at 14:11; Start 04/10/18 at 13:00 Al Hydroxide/Mg Hydroxide (Mylanta Plus Xs) 30 ml PRN DAILY PRN PO HEARTBURN / GAS; Start 04/10/18 at 13:00 Sodium Monofluorophosphate (Fleet Adult) 133 ml PRN DAILY PRN MD CONSTIPATION; Start 04/10/18 at 13:00 Diphenhydramine HCl (Benadryl) 25 mg PRN Q4HRS PRN IVP ITCHING; Start 04/10/18 at 13:00 Docusate Sodium (Colace) 100 mg PRN BID PRN PO CONSTIPATION Last administered on 04/10/18at 21:36; Start 04/10/18 at 13:00 Albuterol Sulfate (Ventolin Neb Soln) 2.5 mg PRN Q4HRS PRN NEB SHORTNESS OF BREATH; Start 04/10/18 at 13:00 Guaifenesin (Robitussin) 200 mg PRN Q4HRS PRN PO COUGH; Start 04/10/18 at 13:00 Lorazepam (Ativan) 0.5 mg PRN Q4HRS PRN PO ANXIETY / AGITATION; Start 04/10/18 at 13:00 Hydromorphone HCl (Dilaudid) 1 mg PRN Q2HRS PRN IV SEVERE PAIN Last administered on 04/10/18at 14:00; Start 04/10/18 at 13:00 Vancomycin HCl 1 gm/Dextrose 250 ml @ 250 mls/hr 1X ONCE IV ; Start 04/10/18 at 13:00; Stop 04/10/18 at 13:59; Status UNV Vancomycin HCl (Vanco Per Pharmacy) 1 each PRN DAILY PRN MC SEE COMMENTS Last administered on 04/10/18at 16:36; Start 04/10/18 at 13:00; Stop 04/11/18 at 08:59 ; Status DC Levofloxacin/ Dextrose 100 ml @ 100 mls/hr Q24H IV ; Start 04/10/18 at 13:15; Status UNV Divalproex Sodium (Depakote) 1,000 mg QHS PO Last administered on 04/10/18at 21: 36; Start 04/10/18 at 21:00 Levofloxacin/ Dextrose 150 ml @ 100 mls/hr Q24H IV Last administered on at 13:55; Start 04/10/18 at 14:00; Stop 04/10/18 at 15:03; Status DC Vancomycin HCl 2 gm/Sodium Chloride 500 ml @ 250 mls/hr 1X ONCE IV Last administered on 04/10/18at 15:40; Start 04/10/18 at 14:00; Stop 04/10/18 at 15:59 ; Status DC Sevoflurane (Ultane) 60 ml STK-MED ONCE IH ; Start 04/10/18 at 14:51; Stop 04/10 at 14:52; Status DC Dexamethasone Sodium Phosphate (Decadron) 20 mg STK-MED ONCE .ROUTE ; Start at 14:51; Stop 04/10/18 at 14:52; Status DC Propofol 20 ml @ As Directed STK-MED ONCE IV ; Start 04/10/18 at 14:51; Stop at 14:52; Status DC Cefepime HCl (Maxipime) 1 gm Q8HRS IVP Last administered on 04/11/18at 05:32; Start 04/10/18 at 15:30 Vancomycin HCl 1.5 gm/Sodium Chloride 500 ml @ 250 mls/hr Q8H IV Last administered on 04/10/18at 23:18; Start 04/10/18 at 23:30; Stop 04/11/18 at 08:59 ; Status DC Vancomycin HCl (Vancomycin Trough Level) 1 each 1X ONCE MC ; Start 04/11/18 at 15:00; Stop 04/11/18 at 15:01 Info (FLU VACCINE SCREEN per RX) 1 each 1X ONCE MC ; Start 04/10/18 at 18:30; Stop 04/10/18 at 18:31; Status UNV Pharmacy Consult (C.diff Med Screen By Rx) 1 each 1X ONCE MC ; Start 04/10/18 at 18:30; Stop 04/10/18 at 18:31; Status UNV Influenza Virus Vaccine (Afluria Trivalent 2393-2656 Syringe) 0.5 ml ONCE ONCE VAX IM Last administered on 04/11/18at 09:08; Start 04/11/18 at 09:00; Stop at 09:01; Status DC Lactobacillus Rhamnosus (Culturelle) 1 cap BID PO Last administered on at 09:06; Start 04/10/18 at 21:00 Active Scripts Active Reported Zoloft (Sertraline Hcl) 50 Mg Tablet 50 Mg PO DAILY Divalproex Sodium 500 Mg Tablet.dr 1,000 Mg PO QHS Tylenol (Acetaminophen) 325 Mg Tablet 2 Tab PO Q6HRS PRN Effexor Xr (Venlafaxine Hcl) 75 Mg Cap.er.24h 225 Mg PO DAILY Zyprexa (Olanzapine) 20 Mg Tablet 20 Mg PO HS Vistaril (Hydroxyzine Pamoate) 25 Mg Capsule 50 Mg PO DAILY08 Vitals/I & O Vital Sign - Last 24 Hours 04/10/18 04/10/18 04/10/18 04/10/18 13:33 14:00 14:00 14:30 Temp 102.6 102.6 Pulse 136 Resp 20 B/P (MAP) 107/47 (67) Pulse Ox 96 O2 Delivery Room Air Room Air Room Air Room Air 04/10/18 04/10/18 04/10/18 04/10/18 15:01 16:34 16:49 17:04 Temp 98.4 101.2 98.4 101.2 Pulse 155 118 120 118 Resp 24 20 20 20 B/P (MAP) 106/52 126/75 125/67 126/78 Pulse Ox 94 100 99 99 O2 Delivery Room Air Simple Mask Room Air Room Air O2 Flow Rate 10 04/10/18 04/10/18 04/10/18 04/10/18 17:19 17:57 18:13 18:27 Temp 98.5 98.5 Pulse 119 113 115 117 Resp 20 B/P (MAP) 130/75 115/62 (79) 117/67 (84) 125/70 (88) Pulse Ox 99 95 95 O2 Delivery Room Air 04/10/18 04/10/18 04/10/18 04/10/18 18:42 19:00 19:30 20:00 Temp 100.0 99.1 99.1 100.0 99.1 99.1 Pulse 106 114 104 108 Resp 17 17 17 B/P (MAP) 113/60 (77) 133/68 (89) 121/54 (76) 112/62 (79) Pulse Ox 97 98 95 O2 Delivery Room Air Room Air Room Air 04/10/18 04/10/18 04/10/18 04/11/18 20:04 21:00 23:00 03:00 Temp 99.1 101.5 99.1 99.1 101.5 99.1 Pulse 104 110 108 Resp 17 17 17 B/P (MAP) 121/54 (76) 143/84 (103) 112/62 (79) Pulse Ox 98 95 95 O2 Delivery Room Air Room Air Room Air Room Air 04/11/18 04/11/18 07:00 08:20 Temp 98.1 98.1 Pulse 81 Resp 18 B/P (MAP) 123/52 (75) Pulse Ox 94 100 O2 Delivery Room Air Room Air Intake and Output 04/10/18 04/10/18 04/11/18 15:00 23:00 07:00 Intake Total 3900 ml Output Total 3000 ml 1200 ml Balance 900 ml -1200 ml BALDOMERO BOND MD Apr 11, 2018 09:54
[2018-04-11 11:00] VITALS: BP 126/73
--- NOTE | 2018-04-11 13:10 | CONS ---
DATE OF CONSULTATION: 04/10/2018 INCOMPLETE DICTATION LOCATION: Room 521. REQUESTING PHYSICIAN: Dr. Rupert Reid. REASON FOR CONSULTATION: Sepsis. HISTORY OF PRESENT ILLNESS: The patient is a 22-year-old gentleman who is incarcerated. He has a history of psychiatric complications including voices telling him to damage himself. He recently inserted a foreign object into his penile urethra. Apparently, he has done this before. Apparently, this time he had inserted DICTATION ENDS HERE. TERESA CRUMP MD DR: IRENE/mariusz JOB#: [id number] / [id number]
[2018-04-11] MEDS: POTASSIUM CHLORIDE 20 MEQ TABLET.ER. PO ONE ×2 (13:28→15:43)
[2018-04-11] MEDS: PHENAZOPYRIDINE 200 MG TABLET. PO SCH ×3 (13:28→21:08)
--- NOTE | 2018-04-11 14:12 | CONS ---
DATE OF CONSULTATION: 04/11/2018 PATIENT OF: Dr. Mohr. REQUESTING PHYSICIAN: Dr. Reid. REASON FOR CONSULTATION: Sepsis. HISTORY OF PRESENT ILLNESS: The patient is a 22-year-old gentleman who is incarcerated and has a history of psychiatric problems, including voices telling him to insert foreign objects into his body. He has now been admitted having inserted what appears to be a tooth brush, paper and piece of spoon into his urethra last Monday. Prior to coming in, he was having some dysuria. He had some abdominal pain and nausea. He states that he had a fever of about 102 and presented to [facility] on 04/10/2018. He had a white blood cell count of 7.1, but he had 30% bands. He also had a temperature of 102.6 at presentation. He was started on vancomycin and levofloxacin and I was consulted. On reviewing his chart from his previous admission, he was found to have E. coli several weeks ago that was resistant to the quinolones. HE HAD A REPORTED REACTION TO PENICILLIN AND AMOXICILLIN, but reviewing previous records, he has tolerated Rocephin. I, therefore, discontinued levofloxacin and began cefepime to cover other potential gram negatives and continue the vancomycin until cultures are obtained. Yesterday, on 04/10/2018, he was taken to surgery. He underwent cystoscopy and a foreign body removal and a Neal placed. This morning, he was feeling somewhat better. He had a little bit of fever last night. He ate some breakfast. Nausea is improved. He has no headaches, sore throat, cough or shortness of air. He has had some flatus, but no bowel movement as of yet. He denies any rashes, no shortness of air. PAST MEDICAL HISTORY: Positive for anxiety, addictions, bipolar, depression as well as schizophrenia. He has history of UTIs, as mentioned above. 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 PAST SURGICAL HISTORY: Positive for penile surgery. ALLERGIES: LISTED PENICILLIN AND AMOXICILLIN WHICH CAUSED RASHES, although he has tolerated the cephalosporins in the past. REVIEW OF SYSTEMS: Otherwise negative, except as mentioned above. SOCIAL HISTORY: He is incarcerated. No drugs or alcohol. FAMILY HISTORY: Positive for hypercholesterolemia. CURRENT MEDICATIONS: Include vancomycin and cefepime. He did receive dexamethasone yesterday. He is on Depakote, Lactobacillus, Zyprexa and Zoloft. Other medications are available and I had reviewed in the chart. PHYSICAL EXAMINATION: VITAL SIGNS: T-max again 102.6 on arrival, currently 99.1; pulse 108; respirations 17, blood pressure 112/62 and satting 100% on room air. CONSTITUTIONAL: He is in no acute distress. He is alert. HEENT: Pupils equal and reactive. Normal conjunctivae. Oral cavity, pharynx is clear. NECK: Supple. No JVD. LUNGS: Clear to auscultation bilaterally. HEART: S1, S2. ABDOMEN: Soft, nontender. No guarding or rebound. GENITOURINARY: There is a Neal in place. EXTREMITIES: Without clubbing or cyanosis. No gross edema. SKIN: Without signs of rash. NEUROLOGIC: He is nonfocal and appropriate. PSYCHIATRIC: Affect is appropriate. LABORATORY DATA: White count 7.1, hemoglobin 14, platelets of 182,000, segs 65 and bands 30. Creatinine of 1. AST 18, ALT 22. Glucose was 107. Urinalysis is concerning for urinary tract infection. Cultures, the blood has gram-negative rods in 1 of 3 bottles currently. Chest x-ray, no acute abnormality. IMPRESSION: 1. Fever. 2. Gram-negative sepsis present on admission, 04/10/2018. 3. Foreign body in the penis, status post procedure, 04/10/2018. 4. Bandemia. 5. History of Escherichia coli resistant to quinolones. 6. History of methicillin-resistant Staphylococcus aureus. 7. PENICILLIN ALLERGY, has tolerated cephalosporins. RECOMMENDATIONS: Again, given his previous cultures and tolerating Rocephin in the past, I began cefepime and discontinued the levofloxacin on 04/10/2018 via pharmacy. Also, continued the vancomycin, but now the way the gram-negative rods are returning, I will discontinue the vancomycin. Other pathogens in the process are being ruled out. We will follow up on labs and cultures. Expect WBC to increase status post dexamethasone. Thank you for allowing me to participate in the patient's care. Should you have any further questions, please do not hesitate to contact me. TERESA CRUMP MD DR: IRENE/mariusz JOB#: [id number] / [id number]
[2018-04-11 15:00] VITALS: BP 116/75
[2018-04-11 19:00] VITALS: BP 115/73
[2018-04-11] MEDS: SERTRALINE 50 MG TABLET. PO SCH (21:08)
[2018-04-11] MEDS: DIVALPROEX DELAYED RELEASE 500 MG TABLET.DR. PO SCH (21:08)
[2018-04-11] MEDS: OLANZapine 5 MG TABLET PO SCH (21:08)
[2018-04-11 23:00] VITALS: BP 116/61
[2018-04-12 03:00] VITALS: BP 100/47
[2018-04-12] MEDS: IV NORMAL SALINE 1000ML BAG 1,000 ML IV SCH ×3 (04:58→14:58)
[2018-04-12 05:25] LABS: BASO % 0 % (0-3); EOS # 0.1 x10^3/uL (0.0-0.7); EOS % 1 % (0-3); HEMATOCRIT 36.2 % (39.0-53.0); HEMOGLOBIN 12.7 g/dL (13.0-17.5); LYMPH # 2.2 x10^3/uL (1.0-4.8); LYMPH % 17 % (24-48); MEAN CORPUSCULAR HEMOGLOBIN 32 pg (25-35); MEAN CORPUSCULAR HGB CONC 35 g/dL (31-37); MEAN CORPUSCULAR VOLUME 91 fL (79-100); MONO # 1.3 x10^3/uL (0.0-1.1); MONO % 10 % (0-9); NEUT # 9.6 x10^3uL (1.8-7.7); NEUT % 72 % (31-73); PLATELET COUNT 138 x10^3/uL (140-400); RED BLOOD COUNT 3.97 x10^6/uL (4.30-5.70); RED CELL DISTRIBUTION WIDTH 13.4 % (11.5-14.5); WHITE BLOOD COUNT 13.3 x10^3/uL (4.0-11.0)
[2018-04-12] MEDS: CEFEPIME HCL IV Push 1 GM VIAL. IVP SCH ×2 (05:41→14:17)
[2018-04-12 06:09] LABS: ALBUMIN 2.3 g/dL (3.4-5.0); ALBUMIN/GLOBULIN RATIO 0.6 (1.0-1.7); CALCIUM 8.6 mg/dL (8.5-10.1); CREATININE 0.7 mg/dL (0.7-1.3); GFR 138.6; POTASSIUM 3.5 mmol/L (3.5-5.1); TOTAL BILIRUBIN 0.2 mg/dL (0.2-1.0); TOTAL PROTEIN 6.3 g/dL (6.4-8.2)
[2018-04-12 07:00] VITALS: BP 129/85
[2018-04-12] MEDS ORDERED: POTASSIUM CHLORIDE 20 MEQ TABLET.ER. PO SCH (08:00)
[2018-04-12] MEDS: LACTOBACILLUS RHAMNOSUS GG 1 CAPSULE. PO SCH (08:18)
[2018-04-12] MEDS: VENLAFAXINE 75 MG TABLET. PO SCH ×2 (08:18→14:16)
[2018-04-12] MEDS: PHENAZOPYRIDINE 200 MG TABLET. PO SCH ×2 (08:18→14:15)
[2018-04-12] MEDS: hydrOXYzine PAMOATE 25 MG CAPSULE PO SCH (08:19)
--- NOTE | 2018-04-12 09:00 | PDOC ---
Infectious Disease Note Subjective Subjective Better. Less pain No F/c/S/N/V/D/SOA/rash ROS ROS o/w neg Vital Sign Vital Signs Vital Signs Date Time Temp Pulse Resp B/P (MAP) Pulse Ox O2 Delivery O2 Flow Rate FiO2 04/12/18 03:00 98.0 66 18 100/47 (64) 92 Room Air 98.0 Physical Exam PHYSICAL EXAM CONSTITUTIONAL: He is in no acute distress. He is alert. HEENT: Pupils equal and reactive. Normal conjunctivae. Oral cavity, pharynx is clear. NECK: Supple. No JVD. LUNGS: Clear to auscultation bilaterally. HEART: S1, S2. ABDOMEN: Soft, nontender. No guarding or rebound. GENITOURINARY: There is a Neal in place. EXTREMITIES: Without clubbing or cyanosis. No gross edema. SKIN: Without signs of rash. NEUROLOGIC: He is nonfocal and appropriate. PSYCHIATRIC: Affect is appropriate Labs Lab Laboratory Tests Test 04/12/18 05:00 White Blood Count 13.3 x10^3/uL (4.0-11.0) Red Blood Count 3.97 x10^6/uL (4.30-5.70) Hemoglobin 12.7 g/dL (13.0-17.5) Hematocrit 36.2 % (39.0-53.0) Mean Corpuscular Volume 91 fL (79-100) Mean Corpuscular Hemoglobin 32 pg (25-35) Mean Corpuscular Hemoglobin Concent 35 g/dL (31-37) Red Cell Distribution Width 13.4 % (11.5-14.5) Platelet Count 138 x10^3/uL (140-400) Neutrophils (%) (Auto) 72 % (31-73) Lymphocytes (%) (Auto) 17 % (24-48) Monocytes (%) (Auto) 10 % (0-9) Eosinophils (%) (Auto) 1 % (0-3) Basophils (%) (Auto) 0 % (0-3) Neutrophils # (Auto) 9.6 x10^3uL (1.8-7.7) Lymphocytes # (Auto) 2.2 x10^3/uL (1.0-4.8) Monocytes # (Auto) 1.3 x10^3/uL (0.0-1.1) Eosinophils # (Auto) 0.1 x10^3/uL (0.0-0.7) Basophils # (Auto) 0.0 x10^3/uL (0.0-0.2) Sodium Level 149 mmol/L (136-145) Potassium Level 3.5 mmol/L (3.5-5.1) Chloride Level 113 mmol/L (98-107) Carbon Dioxide Level 27 mmol/L (21-32) Anion Gap 9 (6-14) Blood Urea Nitrogen 11 mg/dL (8-26) Creatinine 0.7 mg/dL (0.7-1.3) Estimated GFR (Cockcroft-Gault) 138.6 BUN/Creatinine Ratio 16 (6-20) Glucose Level 114 mg/dL (70-99) Calcium Level 8.6 mg/dL (8.5-10.1) Total Bilirubin 0.2 mg/dL (0.2-1.0) Aspartate Amino Transf (AST/SGOT) 10 U/L (15-37) Alanine Aminotransferase (ALT/SGPT) 18 U/L (16-63) Alkaline Phosphatase 52 U/L (46-116) Total Protein 6.3 g/dL (6.4-8.2) Albumin 2.3 g/dL (3.4-5.0) Albumin/Globulin Ratio 0.6 (1.0-1.7) Micro Microbiology 04/10/18 Blood Culture - Final, Complete Objective Assessment Fever - better GNR sepsis - POA 04/10 Foreign body in penis s/p procedure 04/10 Leukocytosis - s/p steroid Bandemia h/o Ecoli res to quinolones h/o MRSA + screen PCN allergy - has tolerated Cephalosporins Plan Plan of Care Given previous cults and his tolerating Rocephin in the past I began Cefepime and d/c'd Levoflox 04/10 via pharmacy - cont for now F/u labs and cults Expect WBC increase with Dexamethasone TERESA CRUMP MD Apr 12, 2018 09:00
--- NOTE | 2018-04-12 09:04 | PDOC ---
SUBJECTIVE Subjective Pt resting well, pain is under control. Still having some urethral burning, but is improving with Pyridium. Catheter working well. Would like to speak to pastoral care. OBJECTIVE Objective Physical Exam: General appearance: Alert and Oriented Head: Normocephalic, without obvious abnormality Eyes: conjunctivae/corneas clear. PERRL, EOM's intact. Fundi benign Lungs: regular respirations. Pelvic: circumcised penis with amos in place draining orange tinged urine ( from Pyridium) Vital Signs Vital Signs Date Time Temp Pulse Resp B/P (MAP) Pulse Ox O2 Delivery O2 Flow Rate FiO2 04/12/18 03:00 98.0 66 18 100/47 (64) 92 Room Air 98.0 04/11/18 23:00 98.1 59 18 116/61 (79) 95 Room Air 98.1 04/11/18 20:00 Room Air 04/11/18 19:00 98.1 77 18 115/73 (87) 93 Room Air 98.1 04/11/18 15:00 99.1 88 18 116/75 (89) 91 Room Air 99.1 04/11/18 11:00 98.1 90 18 126/73 (90) 97 Room Air 98.1 I & O Intake and Output 04/12/18 07:00 Intake Total 1920 ml Output Total 4450 ml Balance -2530 ml Intake Oral 1420 ml IV Total 500 ml Output Urine Total 4450 ml PHYSICAL EXAM Physical Exam Physical Exam: General appearance: Alert and Oriented Head: Normocephalic, without obvious abnormality Eyes: conjunctivae/corneas clear. PERRL, EOM's intact. Fundi benign Lungs: regular respirations. Pelvic: circumcised penis with amos in place draining orange tinged urine ( from Pyridium) ASSESSMENT/PLAN Assessment/Plan POD #2 foreign body removal per Dr[address] Barbour. Continue Pyridium as scheduled/ordered. Keep amos catheter in place for today. Pt will have a voiding trial tomorrow ( on 04/13). Orders entered for nursing staff to perform voiding trial Pt getting treatment for infection (blood cultures showing gram negative rods), ID involved, appreciate input. Problems: (1) Urethral foreign body (2) Foreign body in penis COMMENT Lab Laboratory Tests Test 04/12/18 05:00 White Blood Count 13.3 x10^3/uL (4.0-11.0) Red Blood Count 3.97 x10^6/uL (4.30-5.70) Hemoglobin 12.7 g/dL (13.0-17.5) Hematocrit 36.2 % (39.0-53.0) Mean Corpuscular Volume 91 fL (79-100) Mean Corpuscular Hemoglobin 32 pg (25-35) Mean Corpuscular Hemoglobin Concent 35 g/dL (31-37) Red Cell Distribution Width 13.4 % (11.5-14.5) Platelet Count 138 x10^3/uL (140-400) Neutrophils (%) (Auto) 72 % (31-73) Lymphocytes (%) (Auto) 17 % (24-48) Monocytes (%) (Auto) 10 % (0-9) Eosinophils (%) (Auto) 1 % (0-3) Basophils (%) (Auto) 0 % (0-3) Neutrophils # (Auto) 9.6 x10^3uL (1.8-7.7) Lymphocytes # (Auto) 2.2 x10^3/uL (1.0-4.8) Monocytes # (Auto) 1.3 x10^3/uL (0.0-1.1) Eosinophils # (Auto) 0.1 x10^3/uL (0.0-0.7) Basophils # (Auto) 0.0 x10^3/uL (0.0-0.2) Sodium Level 149 mmol/L (136-145) Potassium Level 3.5 mmol/L (3.5-5.1) Chloride Level 113 mmol/L (98-107) Carbon Dioxide Level 27 mmol/L (21-32) Anion Gap 9 (6-14) Blood Urea Nitrogen 11 mg/dL (8-26) Creatinine 0.7 mg/dL (0.7-1.3) Estimated GFR (Cockcroft-Gault) 138.6 BUN/Creatinine Ratio 16 (6-20) Glucose Level 114 mg/dL (70-99) Calcium Level 8.6 mg/dL (8.5-10.1) Total Bilirubin 0.2 mg/dL (0.2-1.0) Aspartate Amino Transf (AST/SGOT) 10 U/L (15-37) Alanine Aminotransferase (ALT/SGPT) 18 U/L (16-63) Alkaline Phosphatase 52 U/L (46-116) Total Protein 6.3 g/dL (6.4-8.2) Albumin 2.3 g/dL (3.4-5.0) Albumin/Globulin Ratio 0.6 (1.0-1.7) AMAN SHEPHERD APRN Apr 12, 2018 09:04
--- NOTE | 2018-04-12 10:42 | PDOC ---
PROGRESS NOTES History of Present Illness History of Present Illness Assessment/Plan Assessment/Plan impression : Foreign body , self inflicted in urethra. fever sepsis BACTEREMIA, gram neg karla sepsis prisoner schizophrenia, Disorganized depression obesity plan psych consult at facility IV CEFIPIME ON D/C CAN GIVE AT [facility] blood and urine cultures reviewed urology following [facility] home meds Vitals Vitals Vital Signs Date Time Temp Pulse Resp B/P (MAP) Pulse Ox O2 Delivery O2 Flow Rate FiO2 04/12/18 07:00 97.1 64 18 129/85 (100) 92 Room Air 97.1 Physical Exam Physical Exam CONSTITUTIONAL: He is in no acute distress. He is alert. HEENT: Pupils equal and reactive. Normal conjunctivae. Oral cavity, pharynx is clear. NECK: Supple. No JVD. LUNGS: Clear to auscultation bilaterally. HEART: S1, S2. ABDOMEN: Soft, nontender. No guarding or rebound. GENITOURINARY: There is a Neal in place. EXTREMITIES: Without clubbing or cyanosis. No gross edema. SKIN: Without signs of rash. NEUROLOGIC: He is nonfocal and appropriate. PSYCHIATRIC: Affect is appropriate General: Alert, Oriented X3, Cooperative, No acute distress, mild distress Heart: Regular rate, Normal S1, Normal S2, No murmurs Lungs: Clear Abdomen: Normal bowel sounds, Soft Extremities: No cyanosis Labs LABS Laboratory Tests Test 04/12/18 05:00 White Blood Count 13.3 x10^3/uL (4.0-11.0) Red Blood Count 3.97 x10^6/uL (4.30-5.70) Hemoglobin 12.7 g/dL (13.0-17.5) Hematocrit 36.2 % (39.0-53.0) Mean Corpuscular Volume 91 fL (79-100) Mean Corpuscular Hemoglobin 32 pg (25-35) Mean Corpuscular Hemoglobin Concent 35 g/dL (31-37) Red Cell Distribution Width 13.4 % (11.5-14.5) Platelet Count 138 x10^3/uL (140-400) Neutrophils (%) (Auto) 72 % (31-73) Lymphocytes (%) (Auto) 17 % (24-48) Monocytes (%) (Auto) 10 % (0-9) Eosinophils (%) (Auto) 1 % (0-3) Basophils (%) (Auto) 0 % (0-3) Neutrophils # (Auto) 9.6 x10^3uL (1.8-7.7) Lymphocytes # (Auto) 2.2 x10^3/uL (1.0-4.8) Monocytes # (Auto) 1.3 x10^3/uL (0.0-1.1) Eosinophils # (Auto) 0.1 x10^3/uL (0.0-0.7) Basophils # (Auto) 0.0 x10^3/uL (0.0-0.2) Sodium Level 149 mmol/L (136-145) Potassium Level 3.5 mmol/L (3.5-5.1) Chloride Level 113 mmol/L (98-107) Carbon Dioxide Level 27 mmol/L (21-32) Anion Gap 9 (6-14) Blood Urea Nitrogen 11 mg/dL (8-26) Creatinine 0.7 mg/dL (0.7-1.3) Estimated GFR (Cockcroft-Gault) 138.6 BUN/Creatinine Ratio 16 (6-20) Glucose Level 114 mg/dL (70-99) Calcium Level 8.6 mg/dL (8.5-10.1) Total Bilirubin 0.2 mg/dL (0.2-1.0) Aspartate Amino Transf (AST/SGOT) 10 U/L (15-37) Alanine Aminotransferase (ALT/SGPT) 18 U/L (16-63) Alkaline Phosphatase 52 U/L (46-116) Total Protein 6.3 g/dL (6.4-8.2) Albumin 2.3 g/dL (3.4-5.0) Albumin/Globulin Ratio 0.6 (1.0-1.7) Comment Review of Relevant I have reviewed the following items salvador (where applicable) has been applied. Labs Laboratory Tests Test 04/10/18 13:15 04/10/18 18:45 04/10/18 19:50 04/12/18 05:00 White Blood Count 7.1 x10^3/uL (4.0-11.0) 13.3 x10^3/uL (4.0-11.0) Red Blood Count 4.44 x10^6/uL (4.30-5.70) 3.97 x10^6/uL (4.30-5.70) Hemoglobin 14.0 g/dL (13.0-17.5) 12.7 g/dL (13.0-17.5) Hematocrit 40.1 % (39.0-53.0) 36.2 % (39.0-53.0) Mean Corpuscular Volume 90 fL (79-100) 91 fL (79-100) Mean Corpuscular Hemoglobin 32 pg (25-35) 32 pg (25-35) Mean Corpuscular Hemoglobin Concent 35 g/dL (31-37) 35 g/dL (31-37) Red Cell Distribution Width 13.3 % (11.5-14.5) 13.4 % (11.5-14.5) Platelet Count 182 x10^3/uL (140-400) 138 x10^3/uL (140-400) Neutrophils (%) (Auto) 95 % (31-73) 72 % (31-73) Lymphocytes (%) (Auto) 5 % (24-48) 17 % (24-48) Monocytes (%) (Auto) 0 % (0-9) 10 % (0-9) Eosinophils (%) (Auto) 0 % (0-3) 1 % (0-3) Basophils (%) (Auto) 0 % (0-3) 0 % (0-3) Neutrophils # (Auto) 6.7 x10^3uL (1.8-7.7) 9.6 x10^3uL (1.8-7.7) Lymphocytes # (Auto) 0.3 x10^3/uL (1.0-4.8) 2.2 x10^3/uL (1.0-4.8) Monocytes # (Auto) 0.0 x10^3/uL (0.0-1.1) 1.3 x10^3/uL (0.0-1.1) Eosinophils # (Auto) 0.0 x10^3/uL (0.0-0.7) 0.1 x10^3/uL (0.0-0.7) Basophils # (Auto) 0.0 x10^3/uL (0.0-0.2) 0.0 x10^3/uL (0.0-0.2) Segmented Neutrophils % 65 % (35-66) Band Neutrophils % 30 % (0-9) Lymphocytes % 5 % (24-48) Platelet Estimate Adequate (ADEQUATE) Sodium Level 137 mmol/L (136-145) 149 mmol/L (136-145) Potassium Level 3.2 mmol/L (3.5-5.1) 3.5 mmol/L (3.5-5.1) Chloride Level 103 mmol/L (98-107) 113 mmol/L (98-107) Carbon Dioxide Level 27 mmol/L (21-32) 27 mmol/L (21-32) Anion Gap 7 (6-14) 9 (6-14) Blood Urea Nitrogen 15 mg/dL (8-26) 11 mg/dL (8-26) Creatinine 1.0 mg/dL (0.7-1.3) 0.7 mg/dL (0.7-1.3) Estimated GFR (Cockcroft-Gault) 91.8 138.6 BUN/Creatinine Ratio 15 (6-20) 16 (6-20) Glucose Level 107 mg/dL (70-99) 114 mg/dL (70-99) Calcium Level 9.0 mg/dL (8.5-10.1) 8.6 mg/dL (8.5-10.1) Total Bilirubin 1.6 mg/dL (0.2-1.0) 0.2 mg/dL (0.2-1.0) Aspartate Amino Transf (AST/SGOT) 18 U/L (15-37) 10 U/L (15-37) Alanine Aminotransferase (ALT/SGPT) 22 U/L (16-63) 18 U/L (16-63) Alkaline Phosphatase 78 U/L (46-116) 52 U/L (46-116) Total Protein 7.4 g/dL (6.4-8.2) 6.3 g/dL (6.4-8.2) Albumin 3.2 g/dL (3.4-5.0) 2.3 g/dL (3.4-5.0) Albumin/Globulin Ratio 0.8 (1.0-1.7) 0.6 (1.0-1.7) Urine Collection Type Unknown Urine Color Yellow Urine Clarity Clear Urine pH 6.0 Urine Specific [place] 1.010 Urine Protein Negative mg/dL (NEG-TRACE) Urine Glucose (UA) Negative mg/dL (NEG) Urine Ketones (Stick) Negative mg/dL (NEG) Urine Blood Large (NEG) Urine Nitrite Negative (NEG) Urine Bilirubin Negative (NEG) Urine Urobilinogen Dipstick 0.2 mg/dL (0.2 mg/dL) Urine Leukocyte Esterase Moderate (NEG) Urine RBC 1-2 /HPF (0-2) Urine WBC 11-20 /HPF (0-4) Urine Bacteria Few /HPF (0-FEW) Urine Mucus Mod /LPF Nasal Screen MRSA (PCR) Positive (Negative) Laboratory Tests Test 04/12/18 05:00 White Blood Count 13.3 x10^3/uL (4.0-11.0) Red Blood Count 3.97 x10^6/uL (4.30-5.70) Hemoglobin 12.7 g/dL (13.0-17.5) Hematocrit 36.2 % (39.0-53.0) Mean Corpuscular Volume 91 fL (79-100) Mean Corpuscular Hemoglobin 32 pg (25-35) Mean Corpuscular Hemoglobin Concent 35 g/dL (31-37) Red Cell Distribution Width 13.4 % (11.5-14.5) Platelet Count 138 x10^3/uL (140-400) Neutrophils (%) (Auto) 72 % (31-73) Lymphocytes (%) (Auto) 17 % (24-48) Monocytes (%) (Auto) 10 % (0-9) Eosinophils (%) (Auto) 1 % (0-3) Basophils (%) (Auto) 0 % (0-3) Neutrophils # (Auto) 9.6 x10^3uL (1.8-7.7) Lymphocytes # (Auto) 2.2 x10^3/uL (1.0-4.8) Monocytes # (Auto) 1.3 x10^3/uL (0.0-1.1) Eosinophils # (Auto) 0.1 x10^3/uL (0.0-0.7) Basophils # (Auto) 0.0 x10^3/uL (0.0-0.2) Sodium Level 149 mmol/L (136-145) Potassium Level 3.5 mmol/L (3.5-5.1) Chloride Level 113 mmol/L (98-107) Carbon Dioxide Level 27 mmol/L (21-32) Anion Gap 9 (6-14) Blood Urea Nitrogen 11 mg/dL (8-26) Creatinine 0.7 mg/dL (0.7-1.3) Estimated GFR (Cockcroft-Gault) 138.6 BUN/Creatinine Ratio 16 (6-20) Glucose Level 114 mg/dL (70-99) Calcium Level 8.6 mg/dL (8.5-10.1) Total Bilirubin 0.2 mg/dL (0.2-1.0) Aspartate Amino Transf (AST/SGOT) 10 U/L (15-37) Alanine Aminotransferase (ALT/SGPT) 18 U/L (16-63) Alkaline Phosphatase 52 U/L (46-116) Total Protein 6.3 g/dL (6.4-8.2) Albumin 2.3 g/dL (3.4-5.0) Albumin/Globulin Ratio 0.6 (1.0-1.7) Microbiology 04/10/18 Blood Culture - Preliminary, Resulted NO GROWTH AFTER 1 DAY Medications Current Medications Acetaminophen (Tylenol) 650 mg Q6HRS PRN PO PAIN Last administered on at 23:17; Start 04/10/18 at 13:00 Divalproex Sodium (Depakote Er) 250 mg DAILY PO ; Start 04/11/18 at 09:00; Status Cancel Hydroxyzine Pamoate (Vistaril) 50 mg DAILY08 PO Last administered on 04/12/18at 08:19; Start 04/11/18 at 08:00 Olanzapine (ZyPREXA) 20 mg QHS PO Last administered on 04/11/18at 21:08; Start 04/10/18 at 21:00 Phenazopyridine HCl (Pyridium) 200 mg PRN TID PRN PO URINARY PAIN; Start at 13:15; Status Cancel Sertraline HCl (Zoloft) 50 mg QHS PO Last administered on 04/11/18at 21:08; Start 04/10/18 at 21:00 Venlafaxine HCl (Effexor) 75 mg TID PO Last administered on 04/12/18at 08:18; Start 04/10/18 at 14:00 Sodium Chloride 1,000 ml @ 100 mls/hr Q10H IV Last administered on 04/12/18at 05:41; Start 04/10/18 at 12:58 Ondansetron HCl (Zofran) 4 mg PRN Q4HRS PRN IV NAUSEA/VOMITING Last administered on 04/10/18at 13:59; Start 04/10/18 at 13:00 Acetaminophen (Tylenol Supp) 650 mg PRN Q4HRS PRN WI TEMP OVER 100.4F OR MILD PAIN Last administered on 04/10/18at 14:11; Start 04/10/18 at 13:00 Al Hydroxide/Mg Hydroxide (Mylanta Plus Xs) 30 ml PRN DAILY PRN PO HEARTBURN / GAS; Start 04/10/18 at 13:00 Sodium Monofluorophosphate (Fleet Adult) 133 ml PRN DAILY PRN WI CONSTIPATION; Start 04/10/18 at 13:00 Diphenhydramine HCl (Benadryl) 25 mg PRN Q4HRS PRN IVP ITCHING; Start 04/10/18 at 13:00 Docusate Sodium (Colace) 100 mg PRN BID PRN PO CONSTIPATION Last administered on 04/10/18at 21:36; Start 04/10/18 at 13:00 Albuterol Sulfate (Ventolin Neb Soln) 2.5 mg PRN Q4HRS PRN NEB SHORTNESS OF BREATH; Start 04/10/18 at 13:00 Guaifenesin (Robitussin) 200 mg PRN Q4HRS PRN PO COUGH; Start 04/10/18 at 13:00 Lorazepam (Ativan) 0.5 mg PRN Q4HRS PRN PO ANXIETY / AGITATION; Start 04/10/18 at 13:00 Hydromorphone HCl (Dilaudid) 1 mg PRN Q2HRS PRN IV SEVERE PAIN Last administered on 04/10/18at 14:00; Start 04/10/18 at 13:00 Vancomycin HCl 1 gm/Dextrose 250 ml @ 250 mls/hr 1X ONCE IV ; Start 04/10/18 at 13:00; Stop 04/10/18 at 13:59; Status UNV Vancomycin HCl (Vanco Per Pharmacy) 1 each PRN DAILY PRN MC SEE COMMENTS Last administered on 04/10/18at 16:36; Start 04/10/18 at 13:00; Stop 04/11/18 at 08:59 ; Status DC Levofloxacin/ Dextrose 100 ml @ 100 mls/hr Q24H IV ; Start 04/10/18 at 13:15; Status UNV Divalproex Sodium (Depakote) 1,000 mg QHS PO Last administered on 04/11/18at 21: 08; Start 04/10/18 at 21:00 Levofloxacin/ Dextrose 150 ml @ 100 mls/hr Q24H IV Last administered on at 13:55; Start 04/10/18 at 14:00; Stop 04/10/18 at 15:03; Status DC Vancomycin HCl 2 gm/Sodium Chloride 500 ml @ 250 mls/hr 1X ONCE IV Last administered on 04/10/18at 15:40; Start 04/10/18 at 14:00; Stop 04/10/18 at 15:59 ; Status DC Sevoflurane (Ultane) 60 ml STK-MED ONCE IH ; Start 04/10/18 at 14:51; Stop 04/10 at 14:52; Status DC Dexamethasone Sodium Phosphate (Decadron) 20 mg STK-MED ONCE .ROUTE ; Start at 14:51; Stop 04/10/18 at 14:52; Status DC Propofol 20 ml @ As Directed STK-MED ONCE IV ; Start 04/10/18 at 14:51; Stop at 14:52; Status DC Cefepime HCl (Maxipime) 1 gm Q8HRS IVP Last administered on 04/12/18at 05:41; Start 04/10/18 at 15:30 Vancomycin HCl 1.5 gm/Sodium Chloride 500 ml @ 250 mls/hr Q8H IV Last administered on 04/10/18at 23:18; Start 04/10/18 at 23:30; Stop 04/11/18 at 08:59 ; Status DC Vancomycin HCl (Vancomycin Trough Level) 1 each 1X ONCE MC Last administered on 04/11/18at 15:00; Start 04/11/18 at 15:00; Stop 04/11/18 at 15:01; Status DC Info (FLU VACCINE SCREEN per RX) 1 each 1X ONCE MC ; Start 04/10/18 at 18:30; Stop 04/10/18 at 18:31; Status UNV Pharmacy Consult (C.diff Med Screen By Rx) 1 each 1X ONCE MC ; Start 04/10/18 at 18:30; Stop 04/10/18 at 18:31; Status UNV Influenza Virus Vaccine (Afluria Trivalent [id number] Syringe) 0.5 ml ONCE ONCE VAX IM Last administered on 04/11/18at 09:08; Start 04/11/18 at 09:00; Stop at 09:01; Status DC Lactobacillus Rhamnosus (Culturelle) 1 cap BID PO Last administered on at 08:18; Start 04/10/18 at 21:00 Potassium Chloride (Klor-Con) 40 meq 1X ONCE PO Last administered on at 15:43; Start 04/11/18 at 12:00; Stop 04/11/18 at 12:01; Status DC Potassium Chloride (Klor-Con) 20 meq [id number] PO Last administered on at 08:18; Start 04/12/18 at 08:00 Phenazopyridine HCl (Pyridium) 200 mg TID PO Last administered on 04/12/18at 08: 18; Start 04/11/18 at 14:00; Stop 04/15/18 at 13:59 Active Scripts Active Reported Zoloft (Sertraline Hcl) 50 Mg Tablet 50 Mg PO DAILY Divalproex Sodium 500 Mg Tablet.dr 1,000 Mg PO QHS Tylenol (Acetaminophen) 325 Mg Tablet 2 Tab PO Q6HRS PRN Effexor Xr (Venlafaxine Hcl) 75 Mg Cap.er.24h 225 Mg PO DAILY Zyprexa (Olanzapine) 20 Mg Tablet 20 Mg PO HS Vistaril (Hydroxyzine Pamoate) 25 Mg Capsule 50 Mg PO DAILY08 Vitals/I & O Vital Sign - Last 24 Hours 04/11/18 04/11/18 04/11/18 04/11/18 11:00 15:00 19:00 20:00 Temp 98.1 99.1 98.1 98.1 99.1 98.1 Pulse 90 88 77 Resp 18 18 18 B/P (MAP) 126/73 (90) 116/75 (89) 115/73 (87) Pulse Ox 97 91 93 O2 Delivery Room Air Room Air Room Air Room Air 04/11/18 04/12/18 04/12/18 23:00 03:00 07:00 Temp 98.1 98.0 97.1 98.1 98.0 97.1 Pulse 59 66 64 Resp 18 18 18 B/P (MAP) 116/61 (79) 100/47 (64) 129/85 (100) Pulse Ox 95 92 92 O2 Delivery Room Air Room Air Room Air Intake and Output 04/11/18 04/11/18 04/12/18 15:00 23:00 07:00 Intake Total 420 ml 1000 ml 500 ml Output Total 2550 ml 1900 ml Balance 420 ml -1550 ml -1400 ml BALDOMERO BOND MD Apr 12, 2018 10:42
[2018-04-12 11:00] VITALS: BP 125/71
--- NOTE | 2018-04-12 12:17 | PDOC3 ---
Discharge Summary Date of Admission: Apr 10, 2018 Date of Discharge: Apr 12, 2018 Follow-Up: 1-2 days Admitting Diagnosis comment: Assessment/Plan Assessment/Plan impression : Foreign body , self inflicted in urethra. fever sepsis BACTEREMIA, gram neg karla sepsis ON IV CEFIPIME X 14 DAYS TID prisoner schizophrenia, Disorganized depression obesity plan psych consult at facility IV CEFIPIME ON D/C CAN GIVE AT ASSISTED, SPOKE TO STAFF PHYSICIAN BY PHONE TODAY [phone] blood and urine cultures reviewed urology following [facility] home meds Vitals Vitals Vital Signs Date Time Temp Pulse Resp B/P (MAP) Pulse Ox O2 Delivery O2 Flow Rate FiO2 04/12/18 07:00 97.1 64 18 129/85 (100) 92 Room Air 97.1 Physical Exam Physical Exam CONSTITUTIONAL: He is in no acute distress. He is alert. HEENT: Pupils equal and reactive. Normal conjunctivae. Oral cavity, pharynx is clear. NECK: Supple. No JVD. LUNGS: Clear to auscultation bilaterally. HEART: S1, S2. ABDOMEN: Soft, nontender. No guarding or rebound. GENITOURINARY: There is a Neal in place. EXTREMITIES: Without clubbing or cyanosis. No gross edema. SKIN: Without signs of rash. NEUROLOGIC: He is nonfocal and appropriate. PSYCHIATRIC: Affect is appropriate General: Alert, Oriented X3, Cooperative, No acute distress, mild distress Heart: Regular rate, Normal S1, Normal S2, No murmurs Lungs: Clear Abdomen: Normal bowel sounds, Soft Extremities: No cyanosis FINAL DIAGNOSIS DISCHARGE DIAGNOSIS Assessment/Plan impression : Foreign body , self inflicted in urethra. fever sepsis BACTEREMIA, gram neg karla sepsis prisoner schizophrenia, Disorganized depression obesity plan psych consult at facility IV CEFIPIME ON D/C CAN GIVE AT ASSISTED blood and urine cultures reviewed urology following [facility] home med[facility] Vitals Vitals Vital Signs Date Time Temp Pulse Resp B/P (MAP) Pulse Ox O2 Delivery O2 Flow Rate FiO2 04/12/18 07:00 97.1 64 18 129/85 (100) 92 Room Air 97.1 Physical Exam Physical Exam CONSTITUTIONAL: He is in no acute distress. He is alert. HEENT: Pupils equal and reactive. Normal conjunctivae. Oral cavity, pharynx is clear. NECK: Supple. No JVD. LUNGS: Clear to auscultation bilaterally. HEART: S1, S2. ABDOMEN: Soft, nontender. No guarding or rebound. GENITOURINARY: There is a Neal in place. EXTREMITIES: Without clubbing or cyanosis. No gross edema. SKIN: Without signs of rash. NEUROLOGIC: He is nonfocal and appropriate. PSYCHIATRIC: Affect is appropriate General: Alert, Oriented X3, Cooperative, No acute distress, mild distress Heart: Regular rate, Normal S1, Normal S2, No murmurs Lungs: Clear Abdomen: Normal bowel sounds, Soft Extremities: No cyanosis Brief Hospital Course Mr. Layne is a 22 old [sex] who presented with [PENILE FB, SEPSIS ] CONDITION AT DISCHARGE: Improved Discharge Medications Current Medications Acetaminophen (Tylenol) 650 mg Q6HRS PRN PO PAIN Last administered on 23:17; Start 04/10/18 at 13:00 Divalproex Sodium (Depakote Er) 250 mg DAILY PO ; Start 04/11/18 at 09:00; Status Cancel Hydroxyzine Pamoate (Vistaril) 50 mg DAILY08 PO Last administered on 04/12/18 08:19; Start 04/11/18 at 08:00 Olanzapine (ZyPREXA) 20 mg QHS PO Last administered on 04/11/18at 21:08; Start 04/10/18 at 21:00 Phenazopyridine HCl (Pyridium) 200 mg PRN TID PRN PO URINARY PAIN; Start at 13:15; Status Cancel Sertraline HCl (Zoloft) 50 mg QHS PO Last administered on 04/11/18at 21:08; Start 04/10/18 at 21:00 Venlafaxine HCl (Effexor) 75 mg TID PO Last administered on 04/12/18at 08:18; Start 04/10/18 at 14:00 Sodium Chloride 1,000 ml @ 100 mls/hr Q10H IV Last administered on 04/12/18at 05:41; Start 04/10/18 at 12:58 Ondansetron HCl (Zofran) 4 mg PRN Q4HRS PRN IV NAUSEA/VOMITING Last administered on 04/10/18at 13:59; Start 04/10/18 at 13:00 Acetaminophen (Tylenol Supp) 650 mg PRN Q4HRS PRN PA TEMP OVER 100.4F OR MILD PAIN Last administered on 04/10/18at 14:11; Start 04/10/18 at 13:00 Al Hydroxide/Mg Hydroxide (Mylanta Plus Xs) 30 ml PRN DAILY PRN PO HEARTBURN / GAS; Start 04/10/18 at 13:00 Sodium Monofluorophosphate (Fleet Adult) 133 ml PRN DAILY PRN PA CONSTIPATION; Start 04/10/18 at 13:00 Diphenhydramine HCl (Benadryl) 25 mg PRN Q4HRS PRN IVP ITCHING; Start 04/10/18 at 13:00 Docusate Sodium (Colace) 100 mg PRN BID PRN PO CONSTIPATION Last administered on 04/10/18at 21:36; Start 04/10/18 at 13:00 Albuterol Sulfate (Ventolin Neb Soln) 2.5 mg PRN Q4HRS PRN NEB SHORTNESS OF BREATH; Start 04/10/18 at 13:00 Guaifenesin (Robitussin) 200 mg PRN Q4HRS PRN PO COUGH; Start 04/10/18 at 13:00 Lorazepam (Ativan) 0.5 mg PRN Q4HRS PRN PO ANXIETY / AGITATION; Start 04/10/18 at 13:00 Hydromorphone HCl (Dilaudid) 1 mg PRN Q2HRS PRN IV SEVERE PAIN Last administered on 04/10/18at 14:00; Start 04/10/18 at 13:00 Vancomycin HCl 1 gm/Dextrose 250 ml @ 250 mls/hr 1X ONCE IV ; Start 04/10/18 at 13:00; Stop 04/10/18 at 13:59; Status UNV Vancomycin HCl (Vanco Per Pharmacy) 1 each PRN DAILY PRN MC SEE COMMENTS Last administered on 04/10/18at 16:36; Start 04/10/18 at 13:00; Stop 04/11/18 at 08:59 ; Status DC Levofloxacin/ Dextrose 100 ml @ 100 mls/hr Q24H IV ; Start 04/10/18 at 13:15; Status UNV Divalproex Sodium (Depakote) 1,000 mg QHS PO Last administered on 04/11/18at 21: 08; Start 04/10/18 at 21:00 Levofloxacin/ Dextrose 150 ml @ 100 mls/hr Q24H IV Last administered on at 13:55; Start 04/10/18 at 14:00; Stop 04/10/18 at 15:03; Status DC Vancomycin HCl 2 gm/Sodium Chloride 500 ml @ 250 mls/hr 1X ONCE IV Last administered on 04/10/18at 15:40; Start 04/10/18 at 14:00; Stop 04/10/18 at 15:59 ; Status DC Sevoflurane (Ultane) 60 ml STK-MED ONCE IH ; Start 04/10/18 at 14:51; Stop 04/10 at 14:52; Status DC Dexamethasone Sodium Phosphate (Decadron) 20 mg STK-MED ONCE .ROUTE ; Start at 14:51; Stop 04/10/18 at 14:52; Status DC Propofol 20 ml @ As Directed STK-MED ONCE IV ; Start 04/10/18 at 14:51; Stop at 14:52; Status DC Cefepime HCl (Maxipime) 1 gm Q8HRS IVP Last administered on 04/12/18at 05:41; Start 04/10/18 at 15:30 Vancomycin HCl 1.5 gm/Sodium Chloride 500 ml @ 250 mls/hr Q8H IV Last administered on 04/10/18at 23:18; Start 04/10/18 at 23:30; Stop 04/11/18 at 08:59 ; Status DC Vancomycin HCl (Vancomycin Trough Level) 1 each 1X ONCE MC Last administered on 04/11/18at 15:00; Start 04/11/18 at 15:00; Stop 04/11/18 at 15:01; Status DC Info (FLU VACCINE SCREEN per RX) 1 each 1X ONCE MC ; Start 04/10/18 at 18:30; Stop 04/10/18 at 18:31; Status UNV Pharmacy Consult (C.diff Med Screen By Rx) 1 each 1X ONCE MC ; Start 04/10/18 at 18:30; Stop 04/10/18 at 18:31; Status UNV Influenza Virus Vaccine (Afluria Trivalent [id number] Syringe) 0.5 ml ONCE ONCE VAX IM Last administered on 04/11/18at 09:08; Start 04/11/18 at 09:00; Stop at 09:01; Status DC Lactobacillus Rhamnosus (Culturelle) 1 cap BID PO Last administered on at 08:18; Start 04/10/18 at 21:00 Potassium Chloride (Klor-Con) 40 meq 1X ONCE PO Last administered on at 15:43; Start 04/11/18 at 12:00; Stop 04/11/18 at 12:01; Status DC Potassium Chloride (Klor-Con) 20 meq DAILYWBKFT PO Last administered on at 08:18; Start 04/12/18 at 08:00 Phenazopyridine HCl (Pyridium) 200 mg TID PO Last administered on 04/12/18at 08: 18; Start 04/11/18 at 14:00; Stop 04/15/18 at 13:59 Active Scripts Active Reported Zoloft (Sertraline Hcl) 50 Mg Tablet 50 Mg PO DAILY Divalproex Sodium 500 Mg Tablet.dr 1,000 Mg PO QHS Tylenol (Acetaminophen) 325 Mg Tablet 2 Tab PO Q6HRS PRN Effexor Xr (Venlafaxine Hcl) 75 Mg Cap.er.24h 225 Mg PO DAILY Zyprexa (Olanzapine) 20 Mg Tablet 20 Mg PO HS Vistaril (Hydroxyzine Pamoate) 25 Mg Capsule 50 Mg PO DAILY08 Vital Signs Vital Signs Date Time Temp Pulse Resp B/P (MAP) Pulse Ox O2 Delivery O2 Flow Rate FiO2 04/12/18 08:00 Room Air 04/12/18 07:00 97.1 64 18 129/85 (100) 92 97.1 Labs Laboratory Tests Test 04/10/18 13:15 04/10/18 18:45 04/10/18 19:50 04/12/18 05:00 White Blood Count 7.1 x10^3/uL (4.0-11.0) 13.3 x10^3/uL (4.0-11.0) Red Blood Count 4.44 x10^6/uL (4.30-5.70) 3.97 x10^6/uL (4.30-5.70) Hemoglobin 14.0 g/dL (13.0-17.5) 12.7 g/dL (13.0-17.5) Hematocrit 40.1 % (39.0-53.0) 36.2 % (39.0-53.0) Mean Corpuscular Volume 90 fL (79-100) 91 fL (79-100) Mean Corpuscular Hemoglobin 32 pg (25-35) 32 pg (25-35) Mean Corpuscular Hemoglobin Concent 35 g/dL (31-37) 35 g/dL (31-37) Red Cell Distribution Width 13.3 % (11.5-14.5) 13.4 % (11.5-14.5) Platelet Count 182 x10^3/uL (140-400) 138 x10^3/uL (140-400) Neutrophils (%) (Auto) 95 % (31-73) 72 % (31-73) Lymphocytes (%) (Auto) 5 % (24-48) 17 % (24-48) Monocytes (%) (Auto) 0 % (0-9) 10 % (0-9) Eosinophils (%) (Auto) 0 % (0-3) 1 % (0-3) Basophils (%) (Auto) 0 % (0-3) 0 % (0-3) Neutrophils # (Auto) 6.7 x10^3uL (1.8-7.7) 9.6 x10^3uL (1.8-7.7) Lymphocytes # (Auto) 0.3 x10^3/uL (1.0-4.8) 2.2 x10^3/uL (1.0-4.8) Monocytes # (Auto) 0.0 x10^3/uL (0.0-1.1) 1.3 x10^3/uL (0.0-1.1) Eosinophils # (Auto) 0.0 x10^3/uL (0.0-0.7) 0.1 x10^3/uL (0.0-0.7) Basophils # (Auto) 0.0 x10^3/uL (0.0-0.2) 0.0 x10^3/uL (0.0-0.2) Segmented Neutrophils % 65 % (35-66) Band Neutrophils % 30 % (0-9) Lymphocytes % 5 % (24-48) Platelet Estimate Adequate (ADEQUATE) Sodium Level 137 mmol/L (136-145) 149 mmol/L (136-145) Potassium Level 3.2 mmol/L (3.5-5.1) 3.5 mmol/L (3.5-5.1) Chloride Level 103 mmol/L (98-107) 113 mmol/L (98-107) Carbon Dioxide Level 27 mmol/L (21-32) 27 mmol/L (21-32) Anion Gap 7 (6-14) 9 (6-14) Blood Urea Nitrogen 15 mg/dL (8-26) 11 mg/dL (8-26) Creatinine 1.0 mg/dL (0.7-1.3) 0.7 mg/dL (0.7-1.3) Estimated GFR (Cockcroft-Gault) 91.8 138.6 BUN/Creatinine Ratio 15 (6-20) 16 (6-20) Glucose Level 107 mg/dL (70-99) 114 mg/dL (70-99) Calcium Level 9.0 mg/dL (8.5-10.1) 8.6 mg/dL (8.5-10.1) Total Bilirubin 1.6 mg/dL (0.2-1.0) 0.2 mg/dL (0.2-1.0) Aspartate Amino Transf (AST/SGOT) 18 U/L (15-37) 10 U/L (15-37) Alanine Aminotransferase (ALT/SGPT) 22 U/L (16-63) 18 U/L (16-63) Alkaline Phosphatase 78 U/L (46-116) 52 U/L (46-116) Total Protein 7.4 g/dL (6.4-8.2) 6.3 g/dL (6.4-8.2) Albumin 3.2 g/dL (3.4-5.0) 2.3 g/dL (3.4-5.0) Albumin/Globulin Ratio 0.8 (1.0-1.7) 0.6 (1.0-1.7) Urine Collection Type Unknown Urine Color Yellow Urine Clarity Clear Urine pH 6.0 Urine Specific [place] 1.010 Urine Protein Negative mg/dL (NEG-TRACE) Urine Glucose (UA) Negative mg/dL (NEG) Urine Ketones (Stick) Negative mg/dL (NEG) Urine Blood Large (NEG) Urine Nitrite Negative (NEG) Urine Bilirubin Negative (NEG) Urine Urobilinogen Dipstick 0.2 mg/dL (0.2 mg/dL) Urine Leukocyte Esterase Moderate (NEG) Urine RBC 1-2 /HPF (0-2) Urine WBC 11-20 /HPF (0-4) Urine Bacteria Few /HPF (0-FEW) Urine Mucus Mod /LPF Nasal Screen MRSA (PCR) Positive (Negative) Laboratory Tests Test 04/12/18 05:00 White Blood Count 13.3 x10^3/uL (4.0-11.0) Red Blood Count 3.97 x10^6/uL (4.30-5.70) Hemoglobin 12.7 g/dL (13.0-17.5) Hematocrit 36.2 % (39.0-53.0) Mean Corpuscular Volume 91 fL (79-100) Mean Corpuscular Hemoglobin 32 pg (25-35) Mean Corpuscular Hemoglobin Concent 35 g/dL (31-37) Red Cell Distribution Width 13.4 % (11.5-14.5) Platelet Count 138 x10^3/uL (140-400) Neutrophils (%) (Auto) 72 % (31-73) Lymphocytes (%) (Auto) 17 % (24-48) Monocytes (%) (Auto) 10 % (0-9) Eosinophils (%) (Auto) 1 % (0-3) Basophils (%) (Auto) 0 % (0-3) Neutrophils # (Auto) 9.6 x10^3uL (1.8-7.7) Lymphocytes # (Auto) 2.2 x10^3/uL (1.0-4.8) Monocytes # (Auto) 1.3 x10^3/uL (0.0-1.1) Eosinophils # (Auto) 0.1 x10^3/uL (0.0-0.7) Basophils # (Auto) 0.0 x10^3/uL (0.0-0.2) Sodium Level 149 mmol/L (136-145) Potassium Level 3.5 mmol/L (3.5-5.1) Chloride Level 113 mmol/L (98-107) Carbon Dioxide Level 27 mmol/L (21-32) Anion Gap 9 (6-14) Blood Urea Nitrogen 11 mg/dL (8-26) Creatinine 0.7 mg/dL (0.7-1.3) Estimated GFR (Cockcroft-Gault) 138.6 BUN/Creatinine Ratio 16 (6-20) Glucose Level 114 mg/dL (70-99) Calcium Level 8.6 mg/dL (8.5-10.1) Total Bilirubin 0.2 mg/dL (0.2-1.0) Aspartate Amino Transf (AST/SGOT) 10 U/L (15-37) Alanine Aminotransferase (ALT/SGPT) 18 U/L (16-63) Alkaline Phosphatase 52 U/L (46-116) Total Protein 6.3 g/dL (6.4-8.2) Albumin 2.3 g/dL (3.4-5.0) Albumin/Globulin Ratio 0.6 (1.0-1.7) Allergies Allergies Coded Allergies Type Severity Reaction Last Updated Verified Penicillins Allergy Intermediate HIVES 04/11/18 Yes amoxicillin Allergy Intermediate HIVES 10/10/17 Yes I S O L A T I O N *CONTACT* Allergy Unknown 10/10/17 Yes Disposition/Orders: Other (BACK TO ASSISTED) Patient Instructions D/C PLANNING 38 MIN BALDOMERO BOND MD Apr 12, 2018 12:17
--- NOTE | 2018-04-12 12:19 | DISCH ---
DISCHARGE WITH HOME HEALTH DISCHARGE INFORMATION: Discharge Date: Apr 12, 2018 Condition on Discharge: Stable CODE STATUS: Code Status: Full HOME HEALTH: Face to Face: I certify this patient is under my care and that I, or a nurse practitioner or physician's workers compensation claims assistant working with me, had a face to face encounter that meets the physician face to face encounter requirements with this patient on []. Medical Complications: Other (SCHIZOPHRENIA) POST DISCHARGE ORDERS: Activity Instructions for Disc: No restrictions, Activity as tolerated Weight Bearing Status after Di: As tolerated Bathing Instructions: Shower-keep dressing dry DIET AFTER DISCHARGE: Regular Wound/Incision Care: No wound care needed CHECKS AFTER DISCHARGE: Checks after discharge: Check blood press - daily FOLLOW-UP: Follow up with: PCP AT FACILITY TODAY, NEEDS IV CEFIPIME 1 GM TID X 14 DAYS TREATMENT/EQUIPMENT ORDERS: Adaptive Equipment Issued: None CERTIFICATION STATEMENT: Certification Statement: Certification Statement: Based on the above finding, I certify that this patient is confined to the home and needs intermittent residential care, physical therapy and/or speech therapy, or continues to need occupational therapy.~ This patient is under my care, and I have initiated the establishment of the plan of care.~ This patient will be followed by myself or a community physician who will periodically review the plan of care. Home Meds Reported Medications Sertraline Hcl (ZOLOFT) 50 Mg Tablet, 50 MG PO DAILY for ANTI-DEPRESSANT, TAB 0 Refills 04/10/18 Divalproex Sodium (DIVALPROEX SODIUM) 500 Mg Tablet.dr, 1000 MG PO QHS, TAB 04/10/18 Acetaminophen (TYLENOL) 325 Mg Tablet, 2 TAB PO Q6HRS PRN for PAIN, #60 TAB 2 Refills 09/12/17 Venlafaxine Hcl (EFFEXOR XR) 75 Mg Cap.er.24h, 225 MG PO DAILY, CAP.SR 07/29/17 Olanzapine (ZYPREXA) 20 Mg Tablet, 20 MG PO HS, TAB 07/29/17 Hydroxyzine Pamoate (VISTARIL) 25 Mg Capsule, 50 MG PO DAILY08 for ANXIETY / AGITATION, #60 CAP 1 Refill 07/29/17 Discontinued Reported Medications Divalproex Sodium (DEPAKOTE ER) 250 Mg Tab.er.24h, 250 MG PO DAILY, TAB.SR 02/28/18 Sertraline Hcl (ZOLOFT) 25 Mg Tablet, 1 TAB PO HS, #30 TAB 2 Refills 09/12/17 Ibuprofen (IBUPROFEN) 400 Mg Tablet, 400 MG PO PRN Q6HRS PRN for INFLAMMATION, TAB 07/29/17 Blair Tar (ANTI-DANDRUFF) 251 Ml Shampoo, 251 ML TP TWICE WEEKLY, MISC 07/29/17 Blair Tar (ANTI-DANDRUFF) 251 Ml Shampoo, 251 ML TP, MISC 07/29/17 Discontinued Scripts Phenazopyridine Hcl (PHENAZOPYRIDINE HCL) 200 Mg Tablet, 200 MG PO PRN TID PRN for URINARY PAIN for 10 Days, #20 TAB Prov:BALDOMERO BOND MD 03/29/18 Ciprofloxacin Hcl (CIPRO) 250 Mg Tablet, 500 MG PO BID for 7 Days, #14 TAB Prov:BALDOMERO BOND MD 03/29/18 BALDOMERO BOND MD Apr 12, 2018 12:19
[2018-04-12] MEDS ORDERED: LACT1CAP19 PO (12:22)
[2018-04-12] MEDS ORDERED: PHEN-444 PO (12:22)
[2018-04-12] MEDS ORDERED: CEFEPIME HCL IVP (12:22)
[2018-04-12 15:00] VITALS: BP 121/67
== END 2018-04-12 18:30 | DRG 871 ==
LOC: 5 NORTH 12:05 → EEVIPCON 12:05
PROVIDERS: ADMIT Family Medicine; ATTEND Family Medicine
PROC: 0TCD8ZZ Extirpation of Matter from Urethra, Via Natural or Artificial Opening Endoscopic (ICD-10-PCS; principal; 2018-04-10 16:15)
DX: A41.50 Gram-negative sepsis, unspecified (principal); E43 Unspecified severe protein-calorie malnutrition; N39.0 Urinary tract infection, site not specified; F20.1 Disorganized schizophrenia; S37.33XA Laceration of urethra, initial encounter; T19.0XXA Foreign body in urethra, initial encounter; E66.9 Obesity, unspecified; F41.9 Anxiety disorder, unspecified; F31.9 Bipolar disorder, unspecified; T19.4XXA Foreign body in penis, initial encounter; X83.8XXA Intentional self-harm by other specified means, initial encounter; Y93.89 Activity, other specified; Y92.89 Other specified places as the place of occurrence of the external cause; Y99.8 Other external cause status; Z86.14 Personal history of Methicillin resistant Staphylococcus aureus infection; Z87.440 Personal history of urinary (tract) infections; Z88.8 Allergy status to other drugs, medicaments and biological substances; Z88.0 Allergy status to penicillin; Z68.38 Body mass index [BMI] 38.0-38.9, adult
CPT/HCPCS: 36415; 71045; 80053; 81001; 85007; 85025; 87040; 87086; 87186; 87205; 87641; 90471; 90756; J0692; J1100; J1170; J1956; J2405; J2704; J3370; J7030; J7040; J7120; Q0177; Q2035

== ENCOUNTER 2019-04-25 22:45 | Emergency (ER) | payer OTHER ==
[~2019-04-25] VITALS: Ht 182.9 cm; Wt 127.9 kg
[~2019-04-25 22:45] MED LIST changes: +CEFEPIME HCL IVP; +DIVA-53 PO; +LACT1CAP19 PO; +SERT50TA PO
[2019-04-25] MEDS ORDERED: LIDOCAINE 1% Multi-Dose 20 ML VIAL. INJ ONE (23:30)
--- NOTE | 2019-04-26 00:10 | RAD ---
STUDY: CT pelvis without contrast INDICATION: Possible urethral foreign body. COMPARISON: No prior cross-sectional imaging available for comparison. TECHNIQUE: Helical CT imaging of the pelvis performed without the use of intravenousithout the use of intravenous sagittal and coronal reformats were obtained. One or more of the following individualized dose reduction techniques were utilized for this examination: 1. Automated exposure control 2. Adjustment of the mA and/or kV according to patient size 3. Use of iterative reconstruction technique. FINDINGS: Linear low-attenuation focus seen along the base of the penis in the region of the bulbous urethra most compatible with the reported foreign body given history. This structure measures approximately 4 cm in length and 0.9 cm in width and is well seen on axial image 81 series 2 and sagittal image 50 series 5. No surrounding prominent hematoma. No abnormality elsewhere along the course of the genitourinary system. Unremarkable osseous structures as well as the visualized intrapelvic/lower abdominal contents. IMPRESSION: Linear low-attenuation focus seen in the expected location of the bulbous urethra most compatible with a foreign body given provided history. This structure measures approximately 4 cm in length and 0.9 cm in width (see lópez images). No surrounding hematoma is apparent. No other abnormality seen throughout the visualized genitourinary system or elsewhere throughout the imaged body. Electronically signed by: DEISY COFFMAN MD (04/26/2019 12:07 AM) [facility]
[2019-04-26 00:30] VITALS: BP 143/75
--- NOTE | 2019-04-26 00:39 | PHYS DOC ---
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 Patient states that he then took a spoon and pushed the piece of plastic's far up into his urethra as he could. Patient has reportedly done this on numerous occasions in the past. Patient states that he did this because he was angry at a deputy sheriff building guard for teasing him. He states that he does this to ease his pain. He denies any intent to take his life.[] Review of Systems Review of Systems Constitutional: Denies fever or chills [] Respiratory: Denies cough or shortness of breath [] Cardiovascular: No additional information not addressed in HPI [] GI: Denies abdominal pain, nausea, vomiting or diarrhea [] : Positive penile pain[] Musculoskeletal: Positive left arm laceration and pain [] Integument: Left arm demonstrates a 2.5 cm laceration in the antecubital space extending through subcutaneous tissue. Laceration is fairly linear with sharp margins. No foreign body is identified.[] Neurologic: Denies headache, focal weakness or sensory changes [] All other systems were reviewed and found to be within normal limits, except as documented in this note. Current Medications Current Medications Current Medications Medications (Trade) Dose Ordered Sig/Salima Start Time Stop Time Status Last Admin Dose Admin Lidocaine HCl (Lidocaine 1% 20ml Vial) 20 ml 1X ONCE 04/25/19 23:30 04/25/19 23:31 DC 04/25/19 23:30 20 ML Allergies Allergies Allergies Coded Allergies Type Severity Reaction Last Updated Verified Penicillins Allergy Intermediate HIVES 04/11/18 Yes amoxicillin Allergy Intermediate HIVES 10/10/17 Yes I S O L A T I O N *CONTACT* Allergy Unknown 10/10/17 Yes Physical Exam Physical Exam Constitutional: Well developed, well nourished, no acute distress, non-toxic appearance. [] HENT: Normocephalic, atraumatic, bilateral external ears normal, oropharynx moist, no oral exudates, nose normal. [] Eyes: PERRLA, EOMI, conjunctiva normal, no discharge. [] Neck: Normal range of motion, no tenderness, supple. [] Cardiovascular: Regular rate and rhythm[] Lungs & Thorax: Bilateral breath sounds clear to auscultation [] Abdomen: Bowel sounds normal, soft, no tenderness. [] Skin: Warm, dry, no erythema, no rash. [] : Examination of male genitalia to include penis demonstrates no evidence of foreign body. There is no blood at urethral meatus. [] Extremities: No tenderness, no cyanosis, no clubbing, ROM intact, no edema. [] Neurologic: Alert and oriented X 3, no focal deficits noted. [] Current Patient Data Vital Signs Vital Signs Date Time Temp Pulse Resp B/P (MAP) Pulse Ox O2 Delivery O2 Flow Rate FiO2 04/25/19 22:50 98.0 104 18 159/98 (118) 96 Room Air 98.0 EKG EKG [] Radiology/Procedures Radiology/Procedures [] Impressions: PROCEDURE: CT PELVIS WO CONTRAST STUDY: CT pelvis without contrast INDICATION: Possible urethral foreign body. COMPARISON: No prior cross-sectional imaging available for comparison. TECHNIQUE: Helical CT imaging of the pelvis performed without the use of intravenousithout the use of intravenous sagittal and coronal reformats were obtained. One or more of the following individualized dose reduction techniques were utilized for this examination: 1. Automated exposure control 2. Adjustment of the mA and/or kV according to patient size 3. Use of iterative reconstruction technique. FINDINGS: Linear low-attenuation focus seen along the base of the penis in the region of the bulbous urethra most compatible with the reported foreign body given history. This structure measures approximately 4 cm in length and 0.9 cm in width and is well seen on axial image 81 series 2 and sagittal image 50 series 5. No surrounding prominent hematoma. No abnormality elsewhere along the course of the genitourinary system. Unremarkable osseous structures as well as the visualized intrapelvic/lower abdominal contents. IMPRESSION: Linear low-attenuation focus seen in the expected location of the bulbous urethra most compatible with a foreign body given provided history. This structure measures approximately 4 cm in length and 0.9 cm in width (see lópez images). No surrounding hematoma is apparent. No other abnormality seen throughout the visualized genitourinary system or elsewhere throughout the imaged body. Electronically signed by: DEISY COFFMAN MD (04/26/2019 12:07 AM) [facility] Course & Med Decision Making Course & Med Decision Making Pertinent Labs and Imaging studies reviewed. (See chart for details) Laceration Repair by me: Anesthesia: 1% lidocaine locally Location: Antecubital fossa left arm Tendon/Joint/Nerves: No injury Foreign body: None detected after copious irrigation and exploration Technique: A total of 8 Simple Interrupted Sutures were placed utilizing 4-0 Ethilon suture material Complexity: No subcutaneous sutures/mucosal repair/edge excision Post Closure Length: 2.5 cm Patient's bleeding was easily controlled in the department and there is no indication of anemia. No evidence of compartment syndrome, neurologic injury, vascular injury, open joint, tendon laceration, or foreign body. Patient is appropriate for outpatient follow up. 48 hour wound check. Scar minimization instructions given. Dragon Disclaimer Dragon Disclaimer This electronic medical record was generated, in whole or in part, using a voice recognition dictation system. Departure Departure Impression: Primary Impression: Foreign body in urethra, initial encounter Additional Impression: Laceration of left upper arm Disposition: 02 [facility] Condition: STABLE Referrals: NO PCP (PCP) Problem Qualifiers Additional Impression: Laceration of left upper arm Encounter type: initial encounter Qualified Codes: S41.112A - Laceration without foreign body of left upper arm, initial encounter AILYN ELKINS Jr., DO Apr 26, 2019 00:39
== END 2019-04-26 00:57 | disposition short-term general hospital (02) ==
LOC: EEVIPCON 22:45 → ER 22:45
DX: S41.112A Laceration without foreign body of left upper arm, initial encounter (principal); T19.0XXA Foreign body in urethra, initial encounter; F41.9 Anxiety disorder, unspecified; F32.9 Major depressive disorder, single episode, unspecified; Z88.0 Allergy status to penicillin; Z88.1 Allergy status to other antibiotic agents; Z91.041 Radiographic dye allergy status; Y28.8XXA Contact with other sharp object, undetermined intent, initial encounter; Y93.89 Activity, other specified; Y92.89 Other specified places as the place of occurrence of the external cause; Y99.8 Other external cause status
CPT/HCPCS: 12011; 72192; 99285

== ENCOUNTER 2019-06-11 22:21 | Emergency (ER) | payer OTHER ==
[~2019-06-11] VITALS: Ht 180.3 cm; Wt 135.6 kg
[2019-06-11] MEDS ORDERED: LIDOCAINE 1%/EPI 1:100,000 20 ML VIAL. ONE (23:06)
[2019-06-11 23:16] LABS: BILIRUBIN,URINE NEGATIVE (NEG); CLARITY,URINE CLEAR; COLOR,URINE YELLOW; NITRITE,URINE NEGATIVE (NEG); PROTEIN,URINE NEGATIVE (NEG-TRACE); UROBILINOGEN,URINE 0.2 mg/dL (0.2 mg/dL)
[2019-06-11 23:20] LABS: SQUAMOUS EPITHELIAL CELL,UR FEW /LPF
[2019-06-11 23:21] LABS: BACTERIA,URINE 0 /HPF (0-FEW)
[2019-06-11] MEDS ORDERED: LIDOCAINE 1%/EPI 1:100,000 20 ML VIAL. INJ ONE (23:30)
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
[2019-06-12 00:30] VITALS: BP 139/78
--- NOTE | 2019-06-12 07:57 | RAD ---
Study: PELVIS Indication: Evaluate for metallic foreign body within the penis. Comparison: CT pelvis 04/25/2019 Findings: Retained foreign body projecting within the shaft of the penis with the foreign body measuring approximately 3.4 cm in length by 1 cm in width. This structure is peripherally radiodense and more lucent centrally. No retained foreign body seen elsewhere. Impression: Retained foreign body measuring approximately 3.4 x 1 cm projecting within the shaft of the penis. Electronically signed by: DEISY COFFMAN MD (06/12/2019 7:54 AM) [facility]
== END 2019-06-12 01:11 | disposition short-term general hospital (02) ==
LOC: EEVIPCON 22:21 → ER 22:21
DX: S41.111A Laceration without foreign body of right upper arm, initial encounter (principal); T19.4XXA Foreign body in penis, initial encounter; Z98.890 Other specified postprocedural states; F41.9 Anxiety disorder, unspecified; F32.9 Major depressive disorder, single episode, unspecified; F90.9 Attention-deficit hyperactivity disorder, unspecified type; Z88.0 Allergy status to penicillin; Z88.1 Allergy status to other antibiotic agents; Z91.041 Radiographic dye allergy status; Y28.8XXA Contact with other sharp object, undetermined intent, initial encounter; Y93.89 Activity, other specified; Y92.89 Other specified places as the place of occurrence of the external cause; Y99.8 Other external cause status
CPT/HCPCS: 12002; 72170; 81001; 99285; J3490

== ENCOUNTER 2019-09-24 23:15 | Emergency (ER) | payer OTHER ==
[~2019-09-24] VITALS: Ht 172.7 cm; Wt 113.0 kg
[~2019-09-24 23:15] MED LIST changes: +CLIN300C8 PO
[2019-09-24] MEDS ORDERED: LIDOCAINE 1% Multi-Dose 20 ML VIAL. ONE (23:22)
--- NOTE | 2019-09-25 00:55 | PHYS DOC ---
Past Medical History Past Medical History: Anxiety, Depression Additional Past Medical Histor: ADHD Past Surgical History: No Surgical History Additional Past Surgical Histo: PENILE SURGERY Smoking Status: Former Smoker Alcohol Use: None Drug Use: None Adult General Chief Complaint Chief Complaint: LACERATION/AVULSION [facility] HPI Patient is a 24 year old presents for re-evaluation of self inflicted wound. Wound was repaired earlier in the evening. Prior to arrival blood was soaking through dressing. Patient was brought in via EMS for re-evaluation. 2 tourniquets placed by correctional facility. Tourniquet #1 was orange rubber band-like material tourniquet #2 was coband. On arrival no active bleeding. Tourniquest removed. Sutures intact. Patient denies manipulating dressing. Review of Systems Review of Systems Constitutional: Denies fever or chills [] Eyes: Denies change in visual acuity, redness, or eye pain [] HENT: Denies nasal congestion or sore throat [] Respiratory: Denies cough or shortness of breath [] Cardiovascular: No additional information not addressed in HPI [] GI: Denies abdominal pain, nausea, vomiting, bloody stools or diarrhea [] : Denies dysuria or hematuria [] Musculoskeletal: Denies back pain or joint pain [] Integument: Denies rash or skin lesions -- positive laceration left forearm Neurologic: Denies headache, focal weakness or sensory changes [] Endocrine: Denies polyuria or polydipsia [] All other systems were reviewed and found to be within normal limits, except as documented in this note. Current Medications Current Medications Current Medications Medications (Trade) Dose Ordered Sig/[facility] Start Time Stop Time Status Last Admin Dose Admin Lidocaine HCl (Lidocaine 1% 20ml Vial) 20 ml STK-MED ONCE 09/24/19 23:22 09/24/19 23:22 DC Allergies Allergies Allergies Coded Allergies Type Severity Reaction Last Updated Verified Penicillins Allergy Intermediate HIVES 04/11/18 Yes amoxicillin Allergy Intermediate HIVES 10/10/17 Yes I S O L A T I O N *CONTACT* Allergy Unknown 10/10/17 Yes Physical Exam Physical Exam Constitutional: Well developed, well nourished, no acute distress, non-toxic appearance. [] HENT: Normocephalic, atraumatic, bilateral external ears normal, oropharynx moist, no oral exudates, nose normal. [] Eyes: PERRLA, EOMI, conjunctiva normal, no discharge. [] Neck: Normal range of motion, no tenderness, supple, no stridor. [] Cardiovascular:Heart rate regular rhythm, no murmur [] Lungs & Thorax: Bilateral breath sounds clear to auscultation [] Abdomen: Bowel sounds normal, soft, no tenderness, no masses, no pulsatile masses. [] Skin: Warm, dry, no erythema, no rash. [wound was examined-- Sutures in place. Single suture placed lateral aspect of laceration. Wound was dressed. ] Back: No tenderness, no CVA tenderness. [] Extremities: No tenderness, no cyanosis, no clubbing, ROM intact, no edema. [] Neurologic: Alert and oriented X 3, normal motor function, normal sensory function, no focal deficits noted. [] Psychologic: Affect normal, judgement normal, mood normal. [] EKG EKG [] Radiology/Procedures Radiology/Procedures [] Course & Med Decision Making Course & Med Decision Making Pertinent Labs and Imaging studies reviewed. (See chart for details) []Wound was observed. No issues of bleeding post repair. --- Procedure. Lidocaine 1% 5cc placed Laceration--3cm in length. [address] from previous repair. single suture 4.0 nylon placed wound dressed. no continued bleeding. Re-evaluation @ 0155-- cap refill left extremity less than 2 seconds LUE NVI Arm placed in splint by nursing. Esther Disclaimer Esther Disclaimer This electronic medical record was generated, in whole or in part, using a voice recognition dictation system. Departure Departure Impression: Primary Impression: Laceration of left upper arm Disposition: HOME, SELF-CARE (back to correction facility) Condition: STABLE Referrals: UNKNOWN PCP NAME (PCP) Patient Instructions: Facial Laceration Additional Instructions: Sutures out in 10 days. SERGIO PYLE DO Sep 25, 2019 00:54
[2019-09-25 00:58] VITALS: BP 128/72
[2019-09-26] MEDS ORDERED: CEPH-264 PO (20:09)
== END 2019-09-25 01:20 | disposition home or self-care (01) ==
LOC: EEVIPCON 23:15 → ER 23:15
DX: S41.112A Laceration without foreign body of left upper arm, initial encounter (principal); Z87.891 Personal history of nicotine dependence; Z88.0 Allergy status to penicillin; Z88.1 Allergy status to other antibiotic agents; Z91.041 Radiographic dye allergy status; Y28.8XXA Contact with other sharp object, undetermined intent, initial encounter; Y93.89 Activity, other specified; Y92.89 Other specified places as the place of occurrence of the external cause; Y99.8 Other external cause status
CPT/HCPCS: 12002; 99285-25

== ENCOUNTER 2019-09-26 16:10 | Emergency (ER) | payer OTHER ==
[~2019-09-26] VITALS: Ht 180.3 cm; Wt 130.0 kg
[2019-09-26] MEDS ORDERED: TRANEXAMIC ACID 1,000 MG/10 ML VIAL. TOP ONE (16:45)
[2019-09-26 16:56] LABS: BASO % 0 % (0-3); EOS # 0.1 x10^3/uL (0.0-0.7); EOS % 1 % (0-3); HEMATOCRIT 26.2 % (39.0-53.0); HEMOGLOBIN 8.6 g/dL (13.0-17.5); LYMPH # 2.6 x10^3/uL (1.0-4.8); LYMPH % 28 % (24-48); MEAN CORPUSCULAR HEMOGLOBIN 25 pg (25-35); MEAN CORPUSCULAR HGB CONC 33 g/dL (31-37); MEAN CORPUSCULAR VOLUME 77 fL (79-100); MONO # 0.7 x10^3/uL (0.0-1.1); MONO % 7 % (0-9); NEUT # 5.9 x10^3/uL (1.8-7.7); NEUT % 64 % (31-73); PLATELET COUNT 269 x10^3/uL (140-400); RED BLOOD COUNT 3.41 x10^6/uL (4.30-5.70); RED CELL DISTRIBUTION WIDTH 15.9 % (11.5-14.5); WHITE BLOOD COUNT 9.3 x10^3/uL (4.0-11.0)
--- NOTE | 2019-09-26 17:02 | PHYS DOC ---
Past Medical History Past Medical History: Anxiety, Depression Additional Past Medical Histor: ADHD Past Surgical History: No Surgical History Additional Past Surgical Histo: PENILE SURGERY Smoking Status: Former Smoker Alcohol Use: None Drug Use: None Adult General Chief Complaint Chief Complaint: LACERATION/AVULSION [facility] HPI Patient is a 24 year old male who presents with laceration to his left arm. The patient was seen on September 23 after he cut his left AC. The patient states that voices tell him to do it. The patient was seen in the emergency department had the sutures placed to control the bleeding that time. The patient was sent back to the senior living. The patient states that today he decided that he would cut the sutures out and the laceration started bleeding again after he cut it with a wooden spoon. He states he also cut into the laceration with the splint. The patient reports no SI or HI at this time and that he is not want hurt himself. Complete ROS were reviewed and found to be within normal limits, except as documented in the HPI Current Medications Current Medications Current Medications Medications (Trade) Dose Ordered Sig/Salima Start Time Stop Time Status Last Admin Dose Admin Cefazolin Sodium/ Dextrose 50 ml @ 100 mls/hr 1X ONCE 09/26/19 17:00 09/26/19 17:29 DC 09/26/19 17:51 100 MLS/HR Info (CONTRAST GIVEN -- Rx MONITORING) 1 each PRN DAILY PRN 09/26/19 17:15 09/28/19 17:14 Iohexol (Omnipaque 350 Mg/ml) 90 ml 1X ONCE 09/26/19 17:15 09/26/19 17:16 DC Lidocaine HCl (Lidocaine 1% 20ml Vial) 20 ml 1X ONCE 09/26/19 20:00 09/26/19 20:01 DC Tranexamic Acid (Cyklokapron) 1,000 mg 1X ONCE 09/26/19 16:45 09/26/19 16:46 DC 09/26/19 17:54 1,000 MG Allergies Allergies Allergies Coded Allergies Type Severity Reaction Last Updated Verified Penicillins Allergy Intermediate HIVES 04/11/18 Yes amoxicillin Allergy Intermediate HIVES 10/10/17 Yes I S O L A T I O N *CONTACT* Allergy Unknown 10/10/17 Yes Physical Exam Physical Exam Constitutional: Well developed, well nourished, no acute distress, non-toxic appearance. [] HENT: Normocephalic, atraumatic, bilateral external ears normal, oropharynx moist, no oral exudates, nose normal. [] Eyes: PERRLA, EOMI, conjunctiva normal, no discharge. [] Neck: Normal range of motion, no tenderness, supple, no stridor. [] Cardiovascular:Heart rate regular rhythm, no murmur [] Lungs & Thorax: Bilateral breath sounds clear to auscultation [] Skin: Warm, dry, no erythema, no rash. [] Extremities: Patient is a laceration to the left AC that is open and sutures been cut. Tourniquet is on the arm. Arm is pale in color. Neurologic: Alert and oriented X 3, normal motor function, normal sensory function, no focal deficits noted. [] Psychologic: Affect normal, judgement normal, mood normal. [] Current Patient Data Lab Values Laboratory Tests Test 09/26/19 16:23 White Blood Count 9.3 x10^3/uL (4.0-11.0) Red Blood Count 3.41 x10^6/uL (4.30-5.70) L Hemoglobin 8.6 g/dL (13.0-17.5) L Hematocrit 26.2 % (39.0-53.0) L Mean Corpuscular Volume 77 fL (79-100) L Mean Corpuscular Hemoglobin 25 pg (25-35) Mean Corpuscular Hemoglobin Concent 33 g/dL (31-37) Red Cell Distribution Width 15.9 % (11.5-14.5) H Platelet Count 269 x10^3/uL (140-400) Neutrophils (%) (Auto) 64 % (31-73) Lymphocytes (%) (Auto) 28 % (24-48) Monocytes (%) (Auto) 7 % (0-9) Eosinophils (%) (Auto) 1 % (0-3) Basophils (%) (Auto) 0 % (0-3) Neutrophils # (Auto) 5.9 x10^3/uL (1.8-7.7) Lymphocytes # (Auto) 2.6 x10^3/uL (1.0-4.8) Monocytes # (Auto) 0.7 x10^3/uL (0.0-1.1) Eosinophils # (Auto) 0.1 x10^3/uL (0.0-0.7) Basophils # (Auto) 0.0 x10^3/uL (0.0-0.2) Prothrombin Time 13.1 SEC (11.7-14.0) Prothrombin Time INR 1.0 (0.8-1.1) Activated Partial Thromboplast Time 26 SEC (24-38) Sodium Level 144 mmol/L (136-145) Potassium Level 3.6 mmol/L (3.5-5.1) Chloride Level 106 mmol/L (98-107) Carbon Dioxide Level 26 mmol/L (21-32) Anion Gap 12 (6-14) Blood Urea Nitrogen 10 mg/dL (8-26) Creatinine 0.9 mg/dL (0.7-1.3) Estimated GFR (Cockcroft-Gault) 102.0 BUN/Creatinine Ratio 11 (6-20) Glucose Level 135 mg/dL (70-99) H Calcium Level 8.6 mg/dL (8.5-10.1) Total Bilirubin 0.1 mg/dL (0.2-1.0) L Aspartate Amino Transferase (AST) 18 U/L (15-37) Alanine Aminotransferase (ALT) 21 U/L (16-63) Alkaline Phosphatase 62 U/L (46-116) Total Protein 6.8 g/dL (6.4-8.2) Albumin 3.3 g/dL (3.4-5.0) L Albumin/Globulin Ratio 0.9 (1.0-1.7) L Laboratory Tests 09/26/19 16:23 Laboratory Tests 09/26/19 16:23 EKG EKG [] Radiology/Procedures Radiology/Procedures [][facility] [address] [place], [place] [id number] IMAGING REPORT Signed PATIENT: MARY JO LEWIS ACCOUNT: [id number] : 1995 LOCATION: ER AGE: 24 SEX: M EXAM STATUS: REG ER ORD. PHYSICIAN: KEVIN HURST APRN REASON: laceration to left arm PROCEDURE: CT ANGIO UPPER EXTREMITY LEFT STUDY: CT angiography of the left upper extremity INDICATION: Left arm laceration. COMPARISON: None. TECHNIQUE: Axial CT imaging of the left upper extremity utilizing angiography protocol. 90 cc Omnipaque 350 administered intravenously. 3D MIP reconstructions. One or more of the following individualized dose reduction techniques were utilized for this examination: 1. Automated exposure control 2. Adjustment of the mA and/or kV according to patient size 3. Use of iterative reconstruction technique. FINDINGS: Vasculature: The major arteries of the head and neck are incompletely evaluated but no acute abnormality is seen. Patent great vessel origins. Normal left subclavian, axillary and brachial arteries. Normally opacified radial and ulnar arteries as well as their major branches throughout the forearm. Skin defect compatible with laceration in the region of the antecubital fossa with subcutaneous edema/hemorrhage. Venous injury at this location to include segments of the cephalic and brachial veins. Soft tissues: As above, laceration injury in the region of the antecubital fossa. Relatively ill-defined edema-like attenuation scattered elsewhere throughout the upper arm and forearm to the wrist. Soft tissue injury overlies the proxival biceps brachii tendon and at the myotendinous junction. Bones: No acute fracture. Miscellaneous: Gynecomastia seen on the left. Residual thymic tissue. IMPRESSION: 1. Laceration defect in the region of the antecubital fossa. No injury to the major arterial structures at this location or elsewhere throughout the left upper extremity. 2. The laceration injury results in venous injury to segments of the cephalic and brachial veins. 3. Edema/hemorrhage along the biceps brachii musculotendinous junction and along the proximal portion of the tendon though tendon fibers are seen to extend distally to its bicipital tuberosity insertion. Eventual correlation with biceps function is recommended. Electronically signed by: DEISY COFFMAN MD (09/26/2019 7:39 PM) [id number] DICTATED and SIGNED BY: DEISY COFFMAN MD DATE: 09/26/191938 Course & Med Decision Making Course & Med Decision Making Pertinent Labs and Imaging studies reviewed. (See chart for details) We will get labs, and a CT Angio of the arm. The tourniquet was placed on the arm at 1509. The tourniquet was taken off around 430. The wound on examination was shooting blood. Pressure was held on the wound which enabled the wound to stop bleeding. Placed TXA on the dressing. CT Angio shows no arterial involvement. Will staple shut, place in splint and put patient on Keflex. Dragon Disclaimer Dragon Disclaimer This electronic medical record was generated, in whole or in part, using a voice recognition dictation system. Departure Departure Impression: Primary Impression: Laceration of left upper arm Disposition: HOME, SELF-CARE Condition: STABLE Referrals: NO PCP (PCP) Patient Instructions: Laceration Care, Adult Additional Instructions: Thank you for visiting [facility]. We appreciate you trusting us with your care. If any additional problems come up don't hesitate to return to visit us. Please follow up with your primary care provider so they can plan additional care if needed and know about the problem that you had. If symptoms worsen come back to the Emergency Department. Any concerning symptoms that start such as chest pain, shortness of air, weakness or numbness on one side of the body, running high fevers or any other concerning symptoms return to the ER. Due to multiple lacerations that are self-inflicted by the patient please put patient on suicide watch at senior living. Please have socorro removed in 1 week. If he starts seeing signs of infection please return to the ER. Scripts Cephalexin (KEFLEX) 500 Mg Capsule 1 CAP PO QID for 7 Days, #28 CAP 0 Refills Prov: KEVIN HURST APRN 09/26/19 KEVIN HURST APRN Sep 26, 2019 17:02
[2019-09-26 17:03] LABS: CALCIUM 8.6 mg/dL (8.5-10.1); CREATININE 0.9 mg/dL (0.7-1.3); POTASSIUM 3.6 mmol/L (3.5-5.1)
[2019-09-26 17:07] LABS: PROTHROMBIN TIME PATIENT 13.1 SEC (11.7-14.0)
[2019-09-26 17:09] LABS: ALBUMIN 3.3 g/dL (3.4-5.0); ALBUMIN/GLOBULIN RATIO 0.9 (1.0-1.7); TOTAL BILIRUBIN 0.1 mg/dL (0.2-1.0); TOTAL PROTEIN 6.8 g/dL (6.4-8.2)
[2019-09-26] MEDS ORDERED: CONTRAST GIVEN. MC PRN (17:15)
[2019-09-26] MEDS ORDERED: IOHEXOL 350 MG/ML 100 ML VIAL. IV ONE (17:15)
--- NOTE | 2019-09-26 19:42 | RAD ---
STUDY: CT angiography of the left upper extremity INDICATION: Left arm laceration. COMPARISON: None. TECHNIQUE: Axial CT imaging of the left upper extremity utilizing angiography protocol. 90 cc Omnipaque 350 administered intravenously. 3D MIP reconstructions. One or more of the following individualized dose reduction techniques were utilized for this examination: 1. Automated exposure control 2. Adjustment of the mA and/or kV according to patient size 3. Use of iterative reconstruction technique. FINDINGS: Vasculature: The major arteries of the head and neck are incompletely evaluated but no acute abnormality is seen. Patent great vessel origins. Normal left subclavian, axillary and brachial arteries. Normally opacified radial and ulnar arteries as well as their major branches throughout the forearm. Skin defect compatible with laceration in the region of the antecubital fossa with subcutaneous edema/hemorrhage. Venous injury at this location to include segments of the cephalic and brachial veins. Soft tissues: As above, laceration injury in the region of the antecubital fossa. Relatively ill-defined edema-like attenuation scattered elsewhere throughout the upper arm and forearm to the wrist. Soft tissue injury overlies the proxival biceps brachii tendon and at the myotendinous junction. Bones: No acute fracture. Miscellaneous: Gynecomastia seen on the left. Residual thymic tissue. IMPRESSION: 1. Laceration defect in the region of the antecubital fossa. No injury to the major arterial structures at this location or elsewhere throughout the left upper extremity. 2. The laceration injury results in venous injury to segments of the cephalic and brachial veins. 3. Edema/hemorrhage along the biceps brachii musculotendinous junction and along the proximal portion of the tendon though tendon fibers are seen to extend distally to its bicipital tuberosity insertion. Eventual correlation with biceps function is recommended. Electronically signed by: DEISY COFFMAN MD (09/26/2019 7:39 PM) [id number]
[2019-09-26] MEDS ORDERED: LIDOCAINE 1% Multi-Dose 20 ML VIAL. INJ ONE ×2 (20:00)
[2019-09-26] MEDS ORDERED: CEPH-264 PO (20:09)
[2019-09-26 20:12] VITALS: BP 131/75
== END 2019-09-26 20:20 | disposition home or self-care (01) ==
LOC: ER 16:10 → EEVIPCON 16:10 → ER 20:20
DX: S41.112A Laceration without foreign body of left upper arm, initial encounter (principal); Z87.891 Personal history of nicotine dependence; Z88.0 Allergy status to penicillin; Z88.1 Allergy status to other antibiotic agents; Z91.041 Radiographic dye allergy status; Y28.8XXA Contact with other sharp object, undetermined intent, initial encounter; Y93.89 Activity, other specified; Y92.89 Other specified places as the place of occurrence of the external cause; Y99.8 Other external cause status
CPT/HCPCS: 36415; 73206; 80053; 85025; 85610; 85730; 86850; 86900; 86901; 96365; 99285; J0696; J3490

== ENCOUNTER 2020-04-20 20:10 | Emergency (ER) | payer OTHER ==
[~2020-04-20 20:10] MED LIST changes: +CEPH-264 PO
[2020-04-20 20:25] LABS: BASO # 0.1 x10^3/uL (0.0-0.2); BASO % 1 % (0-3); EOS % 0 % (0-3); HEMATOCRIT 41.1 % (39.0-53.0); LYMPH # 1.9 x10^3/uL (1.0-4.8); LYMPH % 19 % (24-48); MEAN CORPUSCULAR HEMOGLOBIN 28 pg (25-35); MEAN CORPUSCULAR HGB CONC 34 g/dL (31-37); MEAN CORPUSCULAR VOLUME 82 fL (79-100); MONO # 0.5 x10^3/uL (0.0-1.1); MONO % 5 % (0-9); NEUT # 7.7 x10^3/uL (1.8-7.7); NEUT % 75 % (31-73); PLATELET COUNT 281 x10^3/uL (140-400); RED CELL DISTRIBUTION WIDTH 17.6 % (11.5-14.5); WHITE BLOOD COUNT 10.3 x10^3/uL (4.0-11.0)
[2020-04-20 20:34] LABS: PROTHROMBIN TIME PATIENT 11.9 SEC (11.7-14.0)
[2020-04-20 20:39] LABS: CALCIUM 9.1 mg/dL (8.5-10.1); CREATININE 0.9 mg/dL (0.7-1.3); POTASSIUM 3.6 mmol/L (3.5-5.1)
[2020-04-20] MEDS ORDERED: CONTRAST GIVEN. MC PRN (21:15)
[2020-04-20] MEDS ORDERED: IOHEXOL 350 MG/ML 100 ML VIAL. IV ONE (21:15)
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
[2020-04-20] MEDS ORDERED: LIDOCAINE 2%/EPI 1:100,000 20 ML VIAL. INJ ONE (22:30)
[2020-04-21] MEDS ORDERED: QUEtiapine 100 MG TABLET. PO ONE (00:15)
--- NOTE | 2020-04-21 00:22 | PHYS DOC ---
Past Medical History Past Medical History: Bipolar, MRSA, Schizophrenia, UTI Additional Past Medical Histor: ADHD Past Surgical History: No Surgical History Additional Past Surgical Histo: PENILE SURGERY Smoking Status: Never Smoker Alcohol Use: None Drug Use: None General Adult EDM: Chief Complaint: SUICDAL IDEATION HPI: HPI: Patient is 24-year-old male with a history of self-harm behavior who presents to the emergency room after cutting himself with a razor blade to his right shoulder. He initially had some bleeding which is now controlled. He states he was trying to hurt himself. He has a long history of this behavior. He denies any pain. Review of Systems: Review of Systems: General: Denies fever, chills, sweats, fatigue Eyes: Denies drainage, blurred vision, eye redness HENT: Denies rhinorrhea, sore throat, earache Respiratory: Denies cough, shortness of breath, wheezing Cardiac: Denies edema, palpitations, chest pain GI: Denies abdominal pain, Nausea, vomiting MSK: Denies back pain, neck pain Skin: Denies rash, jaundice Neuro: Denies headache, dizziness Psychiatric: Denies SI/HI Heart Score: Risk Factors: Risk Factors: DM, Current or recent (<one month) smoker, HTN, HLP, family history of CAD, obesity. Risk Scores: Score 0 - 3: 2.5% MACE over next 6 weeks - Discharge Home Score 4 - 6: 20.3% MACE over next 6 weeks - Admit for Clinical Observation Score 7 - 10: 72.7% MACE over next 6 weeks - Early Invasive Strategies Current Medications: Current Medications Medications (Trade) Dose Ordered Sig/Salima Start Time Stop Time Status Last Admin Dose Admin Info (CONTRAST GIVEN -- Rx MONITORING) 1 each PRN DAILY PRN 04/20/20 21:15 04/22/20 21:14 Iohexol (Omnipaque 350 Mg/ml) 75 ml 1X ONCE 04/20/20 21:15 04/20/20 21:16 DC 04/20/20 21:37 75 ML Lidocaine/ Epinephrine (LIDOCAINE 2%-EPI 1:100,000 multi-dose) 20 ml 1X ONCE 04/20/20 22:30 04/20/20 22:31 DC 04/20/20 22:30 20 ML Quetiapine Fumarate (SEROquel) 200 mg 1X ONCE 04/21/20 00:15 04/21/20 00:16 DC Allergies: Allergies: Allergies Coded Allergies Type Severity Reaction Last Updated Verified Penicillins Allergy Intermediate HIVES 04/11/18 Yes amoxicillin Allergy Intermediate HIVES 10/10/17 Yes I S O L A T I O N *CONTACT* Allergy Unknown 10/10/17 Yes Physical Exam: PE: General: Awake, alert, NAD. Well Nourished, well hydrated. Cooperative HEENT: Atraumatic, EOMI, PERRL, airway patent, moist oral mucosa, no nasal septal hematoma, no facial crepitus or deformity Neck: Supple, trachea midline,[no c-spine tenderness] Respiratory: CTA bilaterally, normal effort, no wheezing/crackles, no crepitus CV: RRR, no murmur, cap refill <2, 2+ bilateral radial/DP pulses GI: Soft, nondistended, nontender, no masses MSK: [No obvious deformities], pelvis stable and nontender Skin: Warm, dry, 6 cm laceration between the right shoulder and neck without bleeding Neuro: A&O x3, speech NL, sensory and motor grossly intact, no focal deficits Psych: Normal affect, normal mood, not suicidal or homicidal Current Patient Data: Labs: Laboratory Tests Test 04/20/20 20:16 White Blood Count 10.3 x10^3/uL (4.0-11.0) Red Blood Count 5.00 x10^6/uL (4.30-5.70) Hemoglobin 14.0 g/dL (13.0-17.5) Hematocrit 41.1 % (39.0-53.0) Mean Corpuscular Volume 82 fL (79-100) Mean Corpuscular Hemoglobin 28 pg (25-35) Mean Corpuscular Hemoglobin Concent 34 g/dL (31-37) Red Cell Distribution Width 17.6 % (11.5-14.5) H Platelet Count 281 x10^3/uL (140-400) Neutrophils (%) (Auto) 75 % (31-73) H Lymphocytes (%) (Auto) 19 % (24-48) L Monocytes (%) (Auto) 5 % (0-9) Eosinophils (%) (Auto) 0 % (0-3) Basophils (%) (Auto) 1 % (0-3) Neutrophils # (Auto) 7.7 x10^3/uL (1.8-7.7) Lymphocytes # (Auto) 1.9 x10^3/uL (1.0-4.8) Monocytes # (Auto) 0.5 x10^3/uL (0.0-1.1) Eosinophils # (Auto) 0.0 x10^3/uL (0.0-0.7) Basophils # (Auto) 0.1 x10^3/uL (0.0-0.2) Prothrombin Time 11.9 SEC (11.7-14.0) Prothrombin Time INR 0.9 (0.8-1.1) Sodium Level 141 mmol/L (136-145) Potassium Level 3.6 mmol/L (3.5-5.1) Chloride Level 105 mmol/L (98-107) Carbon Dioxide Level 28 mmol/L (21-32) Anion Gap 8 (6-14) Blood Urea Nitrogen 7 mg/dL (8-26) L Creatinine 0.9 mg/dL (0.7-1.3) Estimated GFR (Cockcroft-Gault) 102.0 Glucose Level 101 mg/dL (70-99) H Calcium Level 9.1 mg/dL (8.5-10.1) Laboratory Tests 04/20/20 20:16 Laboratory Tests 04/20/20 20:16 EKG: EKG: [] Radiology/Procedures: Radiology/Procedures: [] Course & Med Decision Making: Course & Med Decision Making Pertinent Labs and Imaging studies reviewed. (See chart for details) Patient is 24-year-old male presents to the emergency room complaining of a wound to his shoulder/neck area that was self-inflicted. CT angios of the neck and chest were ordered. There is no signs of hematoma or vessel injury at this time. He does have some subcutaneous air, however the wound is large and he has been digging at it. It is not an area where he should have in any way injured his trachea. He does not have a pneumothorax. Wound was cleaned and closed. We did call the PAT team who states that there is nothing that they can do and he has to be discharged back to group home. Patient's test results and vitals while in the ED were fully reviewed and discussed with the patient. Patient is stable and at this time does not need admission to the hospital. We have discussed strict return precautions and the importance of following up with their Primary Care Physician. Patient stated understanding and was given an opportunity to ask any questions. Patient is in agreement with plan. Dragon Disclaimer: Dragon Disclaimer: This electronic medical record was generated, in whole or in part, using a voice recognition dictation system. Departure Departure Impression: Primary Impression: Laceration of shoulder Additional Impression: Self-harm Disposition: HOME, SELF-CARE Condition: STABLE Referrals: NO PCP (PCP) Patient Instructions: Laceration Care, Adult, [id number] Additional Instructions: Sutures should be removed in 10 days. RUSSEL URENA MD Apr 21, 2020 00:22
[2020-04-21 05:42] VITALS: BP 150/80
== END 2020-04-21 00:48 | disposition home or self-care (01) ==
LOC: EEVIPCON 20:10 → ER 20:10
DX: S41.011A Laceration without foreign body of right shoulder, initial encounter (principal); F31.9 Bipolar disorder, unspecified; F20.9 Schizophrenia, unspecified; Z88.0 Allergy status to penicillin; Z88.1 Allergy status to other antibiotic agents; Z86.14 Personal history of Methicillin resistant Staphylococcus aureus infection; Z98.890 Other specified postprocedural states; X78.8XXA Intentional self-harm by other sharp object, initial encounter; Y93.89 Activity, other specified; Y92.89 Other specified places as the place of occurrence of the external cause; Y99.8 Other external cause status
CPT/HCPCS: 12002; 36415; 70498; 80048; 85025; 85610; 99285; J3490; Q9967